=== PATIENT | female | born 1930 | race Caucasian/White ===

== ENCOUNTER → 2017-01-29 | Outpatient (CLI) | payer MEDICARE, BC ==
[2017-01-26 13:44] VITALS: BMI 23.9
[2017-01-29 12:34] VITALS: BP 158/73; PULSE 76; RESP 16
--- NOTE | 2017-01-29 13:28 | P.CONS ---
History of Present Illness - Reason for Consult Consult date: 01/29/17 - Chief Complaint Right shoulder pain - History of Present Illness This is an 86-year-old female with history of right shoulder pain with no precipitating events for the last few years. The patient had right shoulder joint steroid injection previously which lasted about 3 months. Her pain is constant in the right shoulder that gets worse by any movement of the shoulder. He denies any pain in her neck denies any paresthesia in the upper extremities or any weakness. No bowel or bladder dysfunction and no weight loss recently. Also has chronic lower back pain and she's been having injections on the lumbar spine by a different pain clinic including caudal epidurals and medial branch blocks.... She takes Advil for her pain and Klonopin at nighttime for sleep. He states that the pain in her shoulder wakes her up at night. the patient also complains of difficulty walking. She used to follow up with his neurologist until recently. Review of Systems Constitutional: Reports fatigue Ears, nose, mouth and throat: Denies as per HPI, Denies ant. neck pain, Denies bleeding gums, Denies dental pain, Denies dysphagia, Denies epistaxis, Denies headache, Denies hoarseness, Denies mouth pain, Denies nasal congestion, Denies nasal discharge, Denies neck fullness/pressure, Denies neck lump, Denies nose pain, Denies odynophagia, Denies post-nasal drip, Denies sinus pain, Denies sinus pressure, Denies swelling in mouth, Denies swelling in throat, Denies sore throat, Denies vertigo, Denies voice changes Cardiovascular: Reports decreased exercise tolerance Respiratory: Denies as per HPI, Denies congestion, Denies cough, Denies cough with sputum, Denies dyspnea, Denies excessive sputum, Denies hemoptysis, Denies home oxygen, Denies pain, Denies pain on inspiration, Denies pleurisy, Denies respiratory infections, Denies sleep apnea, Denies snoring, Denies wheezing Gastrointestinal: Denies as per HPI, Denies abdominal pain, Denies belching, Denies bloating, Denies BRBPR, Denies change in bowel habits, Denies coffee ground emesis, Denies constipation, Denies diarrhea, Denies dyspepsia, Denies early satiety, Denies excessive gas, Denies heartburn, Denies hematemesis, Denies hematochezia, Denies indigestion, Denies jaundice, Denies lactose intolerance, Denies loss of appetite, Denies melena, Denies nausea, Denies vomiting Musculoskeletal: Reports as per HPI Neurological: Reports as per HPI Past Medical History Past Medical History: Cancer, Hypertension, Musculoskeletal Disorder, Osteoarthritis (OA) History of Any Multi-Drug Resistant Organisms: None Reported Past Surgical History: Appendectomy, Cholecystectomy, Hysterectomy, Joint Replacement, Tonsillectomy Additional Past Surgical History / Comment(s): jewel. knee replacements; colonoscopies Past Anesthesia/Blood Transfusion Reactions: No Reported Reaction Smoking Status: Former smoker Past Alcohol Use History: None Reported Additional Past Alcohol Use History / Comment(s): smoked from teens to age 61' s socially under 1/2 ppd Past Drug Use History: None Reported - Past Family History Mother Family Medical History: No Reported History Medications and Allergies Home Medications Medication Instructions Recorded Confirmed Type Atenolol 25 mg PO BID 01/26/17 01/29/17 History Gabapentin [Neurontin] 100 mg PO BID 01/26/17 01/29/17 History Lisinopril [Prinivil] 20 mg PO DAILY 01/26/17 01/29/17 History Naproxen Sodium [Aleve] 220 mg PO DAILY 01/26/17 01/29/17 History clonazePAM [Clonazepam] 2 mg PO BID 01/26/17 01/29/17 History Allergies Allergy/AdvReac Type Severity Reaction Status Date / Time codeine AdvReac Rash/Hives Verified 01/29/17 12:13 Penicillins AdvReac Rash/Hives Verified 01/29/17 12:13 Physical Exam Vitals: Vital Signs Pulse Resp BP 01/29/17 12:14 76 16 158/73 - Psychiatric Psychiatric: A&O x's 3, appropriate affect, intact judgment & insight Neuro exam of the upper extremities showed normal muscle strength and normal and symmetrical deep tendon reflexes. Mrs. in the upper thoracic paravertebral musculature on the right side and trapezius muscle on the right side. She has normal range of motion of the cervical spine and she has no tenderness in the cervical paravertebral musculature. She has decreased range of motion of the right shoulder to less than 90 for abduction. Has tenderness in the anterior aspect of the right shoulder joint. There is no skin erythema or allodynia to touch around the right shoulder. Neuro exam of the lower extremities showed normal and symmetrical muscle strength and normal knee reflexes bilaterally however she has absent ankle reflex is bilaterally. She has normal cerebellar signs. He has slow short steppage gait. Assessment and Plan Plan: This is an 86-year-old female with right shoulder pain most likely due to osteoarthritis. Chronic lower back pain that has been treated by injections in a different clinic clinic. Difficulty walking. Patient's neurological examination for the upper or lower extremities was grossly normal. I will send the patient to have an MRI on the right shoulder joint. If The shoulder MRI came back negative for any pathology then we will do a cervical spine MRI Give her prescription for [place] 5 mg to be taken as half a pill to 1 pill every 4-6 hours when necessary pain If her prescription for occupational therapy to help her with her gait. She may need steroid injection on the right shoulder joint however we'll wait until the MRI results are back. Thank you Dr. Dumont for the referral
== END ==
LOC: PNWHC3 11:41
PROVIDERS: ATTEND Anesthesiology
DX: M19.011 Primary osteoarthritis, right shoulder (principal); M54.5 Low back pain; G89.29 Other chronic pain; I10 Essential (primary) hypertension; Z79.899 Other long term (current) drug therapy; Z88.5 Allergy status to narcotic agent; Z88.0 Allergy status to penicillin; Z87.891 Personal history of nicotine dependence
CPT/HCPCS: 99211

== ENCOUNTER → 2017-02-22 | Outpatient (CLI) | payer MEDICARE, BC ==
--- NOTE | 2017-02-22 23:27 | MR ---
EXAMINATION TYPE: MR shoulder RT wo con DATE OF EXAM: 02/22/2017 COMPARISON: NONE HISTORY: Rt shoulder pain TECHNIQUE: Multiplanar, multisequence imaging of the right shoulder is performed without contrast. FINDINGS: There is significant flattening of the articular surface of the humeral head. There is an approximate 2 x 1.5 cm mixed signal lesion within the joint space on the superior aspect of the shoulder joint c onsistent with a loose body and synovial chondromatosis. The supraspinatus tendon shows some thinning but no retraction. There is shoulder joint effusion. There is fluid around the biceps tendon. Biceps tendon shows mild thickening at the attachment on the humeral head. The subscapularis tendon is intact. There is mixed fluid signal around the subscapular is tendon. IMPRESSION: Deformity of the humeral head with flattening of the articular surface. 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 Sh oulder joint effusion. There is complex fluid also seen around the subscapularis tendon that is sugge stive of complex synovial cyst formation. Moderate spurring at the AC joint and mild subacromial impi ngement. Significant spurring of the inferior humeral head related to osteoarthritis. No acute fractu re seen.
== END | disposition home or self-care (01) ==
LOC: RADMRIMAIN 12:44
PROVIDERS: ATTEND Anesthesiology
DX: M25.411 Effusion, right shoulder (principal); M77.9 Enthesopathy, unspecified

== ENCOUNTER → 2017-02-26 | Outpatient (CLI) | payer MEDICARE, BC ==
[2017-02-26 12:25] VITALS: BP 114/77; PULSE 85; RESP 15; TEMP 97.5
--- NOTE | 2017-02-26 12:44 | P.PN ---
Subjective Progress Note Date: 02/26/17 This follow-up visit for this 85 years old female who was seen a few weeks ago and [facility] pain clinic, and the to severe right shoulder pain reorder MRI of the right shoulder , and patient here today to discuss the results of the MRI and MRI showed patient had severe deformity of the humeral head with the flattening of the articular surface, and there is large intra- articular body which is consistent with synovial chondromatosis , patient currently on [place] 5/325 one tablet every 4-6 hours, and naproxen to 220 mg daily, she denies any side effects of the medication but she reported that the current regimen is not helping to control her pain and she is not able to state that that because of intensity of the pain, he denies any either or night sweats and there is no change in the bowel movement or urination Objective - Vital Signs Vital signs: Vital Signs Temp 97.5 F L 02/26/17 12:17 Pulse 85 02/26/17 12:17 Resp 15 02/26/17 12:17 BP 114/77 02/26/17 12:17 Pulse Ox 99 02/26/17 12:17 Intake & Output 02/25/17 02/26/17 02/26/17 18:59 06:59 18:59 Weight 54.431 kg Assessment and Plan Assessment: Assessment and plan= severe right shoulder arthralgia secondary to deformity of the right humeral head and flattening of the articular services and intra- articular body , patient will be referred for orthopedic evaluation, and also patient given prescription for [place] 5/325 every 6 hours when necessary dispense 60 and she should continue naproxen to 220 mg daily . Time with Patient: Less than 30
== END | disposition home or self-care (01) ==
LOC: PNWHC3 11:48
PROVIDERS: ATTEND Specialist
DX: M21.921 Unspecified acquired deformity of right upper arm (principal); M25.511 Pain in right shoulder
CPT/HCPCS: 99211

== ENCOUNTER 2017-11-06 21:13 | Emergency (ER) | payer MEDICARE, BC ==
[2017-11-06 22:46] LABS: Appearance,Urine Clear (Clear); Basophils % (A) 0 %; Bilirubin,Urine Negative (Negative); Blood,Urine Negative (Negative); Color,Urine Light Yellow; Eosinophils # (A) 0.2 k/uL (0-0.7); Eosinophils % (A) 2 %; Glucose,Urine (UA) Negative (Negative); HCT 43.1 % (34.0-46.0); HGB 14.2 gm/dL (11.4-16.0); Ketones,Urine Negative (Negative); Leukocyte Esterase,Urine Negative (Negative); Lymphocytes # (A) 1.6 k/uL (1.0-4.8); Lymphocytes % (A) 21 %; MCH 30.1 pg (25.0-35.0); MCV 91.2 fL (80.0-100.0); Mean Platelet Volume 6.4; Monocytes # (A) 0.5 k/uL (0-1.0); Monocytes % (A) 7 %; Neutrophils # (A) 5.2 k/uL (1.3-7.7); Neutrophils % (A) 67 %; Nitrite,Urine Negative (Negative); PH, Urine 5.5 (5.0-8.0); Platelet Count 345 k/uL (150-450); Protein,Urine Negative (Negative); RBC 4.73 m/uL (3.80-5.40); RDW 14.4 % (11.5-15.5); Specific Gravity,Urine 1.007 (1.001-1.035); Urobilinogen,Urine <2.0 mg/dL (<2.0); WBC 7.7 k/uL (3.8-10.6)
--- NOTE | 2017-11-06 22:49 | ED ---
General Adult HPI - General Chief complaint: Psychiatric Symptoms Stated complaint: mental health Time Seen by Provider: 11/06/17 22:14 Source: patient, EMS Mode of arrival: EMS Limitations: altered mental status - History of Present Illness Initial comments: Rahel is an 87-year-old female with no psychiatric history who is brought to the ED today in police custody from an urgent care for evaluation of suicidal statement. Rahel was seen in the urgent care today for evaluation of a rash on her right buttock, which was diagnosed as shingles. During her evaluation at that urgent care the patient stated that her pain is so bad she just wants to end it all, this was taken be a suicidal statement and police were contacted. Patient was transferred here for psychiatric evaluation. Patient is accompanied by her . Patient does have a history of chronic pain, she has been secondary to orthopedic procedures in the past, she has had bilateral knee replacement and a right shoulder replacement. Her right shoulder replacement was last year and she reports she's had persistent pain in the right shoulder since then. She takes Aleve 1-2 times daily with minimal improvement in her pain. She has never seen a pain specialist were done physical therapy for her pain. In addition she noted a very painful and pruritic rash developing on her right buttock yesterday and today it was intensely painful and she sought care at the urgent care. Patient does admit that while at the urgent care she did state that the pain is so bad she doesn't want to live like this. However she denies any specific suicidal thoughts suicidal plan history of depression history of suicide attempts. She lives with her has a good support system she he also confirms that she has no psychiatric history. He does state that sometime she does feel overwhelmed by her pain. He does not feel that she is a danger to herself or others. - Related Data Home Medications Medication Instructions Recorded Confirmed Atenolol 25 mg PO BID 01/26/17 11/06/17 Lisinopril [Prinivil] 20 mg PO DAILY 01/26/17 11/06/17 ALPRAZolam [Xanax] 0.125 mg PO DAILY PRN 11/06/17 11/06/17 Clopidogrel Bisulfate [Plavix] 75 mg PO HS 11/06/17 11/06/17 Allergies Allergy/AdvReac Type Severity Reaction Status Date / Time codeine AdvReac Rash/Hives Verified 11/06/17 21:44 Penicillins AdvReac Rash/Hives Verified 11/06/17 21:44 Review of Systems ROS Statement: Those systems with pertinent positive or pertinent negative responses have been documented in the HPI. ROS Other: All systems not noted in ROS Statement are negative. Past Medical History Past Medical History: Cancer, Hypertension, Musculoskeletal Disorder, Osteoarthritis (OA) History of Any Multi-Drug Resistant Organisms: None Reported Past Surgical History: Appendectomy, Cholecystectomy, Hysterectomy, Joint Replacement, Tonsillectomy Additional Past Surgical History / Comment(s): jewel. knee replacements; colonoscopies Past Anesthesia/Blood Transfusion Reactions: No Reported Reaction Past Psychological History: Anxiety Smoking Status: Former smoker Past Alcohol Use History: None Reported Past Drug Use History: None Reported - Past Family History Mother Family Medical History: No Reported History General Exam - General Exam Comments Initial Comments: GENERAL: Patient is well-developed and well-nourished. Patient is nontoxic and well- hydrated and is in no distress. HENT: Normocephalic, Atraumatic. Neck is soft and supple. No significant lymphadenopathy is noted. Oropharynx is clear. Moist mucous membranes. Neck has full range of motion without eliciting any pain. EYES: The sclera were anicteric and conjunctiva were pink and moist. Extraocular movements were intact and pupils were equal round and reactive to light. Eyelids were unremarkable. PULMONARY: Unlabored respirations. Good breath sounds bilaterally. No audible rales rhonchi or wheezing was noted. CARDIOVASCULAR: There is a regular rate and rhythm without any murmurs gallops or rubs. ABDOMEN: Soft and nontender with normal bowel sounds. SKIN: Rash on right buttock, vesicles on an erythematous base consistent with shingles NEUROLOGIC: Patient is alert and oriented x3. Cranial nerves II through XII are grossly intact. Motor and sensory are also intact. Normal speech, volume and content. Symmetrical smile. MUSCULOSKELETAL: Decreased range of motion of right shoulder LYMPHATICS: No significant lymphadenopathy is noted PSYCHIATRIC: Denies suicidal or homicidal ideation, not delusional, not hallucinating Situational depression regarding chronic pain Limitations: no limitations Limitations: altered mental status Course Vital Signs 11/06/17 21:29 Temperature 98.4 F Pulse Rate 95 Respiratory 15 Rate Blood Pressure 216/91 O2 Sat by Pulse 98 Oximetry Medical Decision Making - Medical Decision Making The patient was seen and evaluated, history was obtained from the patient and her at bedside as well as review of the petition from police Patient admits that her chronic pain causes her to want to "end it all" states she has had this in the past, never made any suicidal attempts or suicidal gestures has no depression or psychiatric history At this time I do not feel the patient is suicidal or homicidal. I do not feel the patient is a threat to herself. Patient does admit that she may be statements out of frustration due to her chronic pain which is exacerbated today by shingles. Patient does not have a spray painter. At this time I will obtain baseline labs because the patient has been prescribed dose, so I will obtain a baseline liver function. In plan to discharge the patient home with referral to her primary care physician as well as a spray painter. This plan was discussed with the patient and her who are agreeable. - Lab Data Result diagrams: 11/06/17 22:32 11/06/17 22:32 Lab Results 11/06/17 11/06/17 11/06/17 Range/Units 22:32 22:32 22:32 WBC 7.7 (3.8-10.6) k/uL RBC 4.73 (3.80-5.40) m/uL Hgb 14.2 (11.4-16.0) gm/dL Hct 43.1 (34.0-46.0) % MCV 91.2 (80.0-100.0) fL MCH 30.1 (25.0-35.0) pg MCHC 33.0 (31.0-37.0) g/dL RDW 14.4 (11.5-15.5) % Plt Count 345 (150-450) k/uL Neutrophils % 67 % Lymphocytes % 21 % Monocytes % 7 % Eosinophils % 2 % Basophils % 0 % Neutrophils # 5.2 (1.3-7.7) k/uL Lymphocytes # 1.6 (1.0-4.8) k/uL Monocytes # 0.5 (0-1.0) k/uL Eosinophils # 0.2 (0-0.7) k/uL Basophils # 0.0 (0-0.2) k/uL Sodium 140 (137-145) mmol/L Potassium 4.2 (3.5-5.1) mmol/L Chloride 108 H (98-107) mmol/L Carbon Dioxide 25 (22-30) mmol/L Anion Gap 7 mmol/L BUN 12 (7-17) mg/dL Creatinine 0.63 (0.52-1.04) mg/dL Est GFR (CKD-EPI)AfAm >90 (>60 ml/min/1.73 sqM) Est GFR (CKD-EPI)NonAf 81 (>60 ml/min/1.73 sqM) Glucose 110 H (74-99) mg/dL Calcium 9.2 (8.4-10.2) mg/dL Total Bilirubin 0.4 (0.2-1.3) mg/dL AST 22 (14-36) U/L ALT 13 (9-52) U/L Alkaline Phosphatase 54 (38-126) U/L Total Protein 6.7 (6.3-8.2) g/dL Albumin 3.8 (3.5-5.0) g/dL Urine Color Light Yellow Urine Appearance Clear (Clear) Urine pH 5.5 (5.0-8.0) Ur Specific [place] 1.007 (1.001-1.035) Urine Protein Negative (Negative) Urine Glucose (UA) Negative (Negative) Urine Ketones Negative (Negative) Urine Blood Negative (Negative) Urine Nitrite Negative (Negative) Urine Bilirubin Negative (Negative) Urine Urobilinogen <2.0 (<2.0) mg/dL Ur Leukocyte Esterase Negative (Negative) Urine Opiates Screen Not Detected (NotDetected) Ur Oxycodone Screen Not Detected (NotDetected) Urine Methadone Screen Not Detected (NotDetected) Ur Propoxyphene Screen Not Detected (NotDetected) Ur Barbiturates Screen Not Detected (NotDetected) U Tricyclic Antidepress Not Detected (NotDetected) Ur Phencyclidine Scrn Not Detected (NotDetected) Ur Amphetamines Screen Not Detected (NotDetected) U Methamphetamines Scrn Not Detected (NotDetected) U Benzodiazepines Scrn Detected H (NotDetected) Urine Cocaine Screen Not Detected (NotDetected) U Marijuana (THC) Screen Not Detected (NotDetected) Disposition Clinical Impression: Shingles, Chronic pain Disposition: HOME SELF-CARE Condition: Good Instructions: Shingles (ED) Is patient prescribed a controlled substance at d/c from ED?: No Referrals: Andrew Castellanos MD [Primary Care Provider] - 1-2 days iMtch Grewal MD [STAFF PHYSICIAN] - 1-2 days Time of Disposition: 22:49
[2017-11-06 22:56] LABS: ALT 13 U/L (9-52); AST 22 U/L (14-36); Albumin 3.8 g/dL (3.5-5.0); Alkaline Phosphatase 54 U/L (38-126); Anion Gap 7 mmol/L; Blood Urea Nitrogen 12 mg/dL (7-17); Calcium 9.2 mg/dL (8.4-10.2); Carbon Dioxide 25 mmol/L (22-30); Chloride 108 mmol/L (98-107); Glucose 110 mg/dL (74-99); Potassium 4.2 mmol/L (3.5-5.1); Sodium 140 mmol/L (137-145); Total Bilirubin 0.4 mg/dL (0.2-1.3); Total Protein 6.7 g/dL (6.3-8.2)
[2017-11-06 22:57] LABS: Amphetamine Screen,Urine Not Detected (NotDetected); Barbiturate Screen,Urine Not Detected (NotDetected); Benzodiazepines Screen,Urine Detected (NotDetected); Cocaine Screen,Urine Not Detected (NotDetected); Methadone Screen, Urine Not Detected (NotDetected); Opiate Screen,Urine Not Detected (NotDetected); Oxycodone Screen, Urine Not Detected (NotDetected); Phencyclidine Screen,Urine Not Detected (NotDetected); Tricyclic Antidepressant,Urine Not Detected (NotDetected); Urn Cannabinoid Scrn Not Detected (NotDetected)
[2017-11-06 23:27] VITALS: RESP 16; TEMP 97.1
[2017-11-06 23:31] VITALS: BP 198/91; PULSE 60
== END 2017-11-06 23:27 | disposition home or self-care (01) ==
LOC: EC 21:13
DX: B02.9 Zoster without complications (principal); G89.29 Other chronic pain; I10 Essential (primary) hypertension; M19.90 Unspecified osteoarthritis, unspecified site; Z85.9 Personal history of malignant neoplasm, unspecified; Z96.653 Presence of artificial knee joint, bilateral; Z96.611 Presence of right artificial shoulder joint; Z87.891 Personal history of nicotine dependence; Z79.02 Long term (current) use of antithrombotics/antiplatelets; Z79.899 Other long term (current) drug therapy; Z88.5 Allergy status to narcotic agent; Z88.0 Allergy status to penicillin
CPT/HCPCS: 36415; 80053; 80306; 81003; 85025; 99284

== ENCOUNTER 2018-01-06 08:19 | Emergency (ER) | payer MEDICARE, BC ==
[2018-01-06] MEDS ORDERED: ALPRAZolam 0.5 MG TAB PO STA (08:48)
[2018-01-06] MEDS ORDERED: SODIUM CHLORIDE 0.9% 500 ML 500 ML IV STA (08:48)
--- NOTE | 2018-01-06 08:54 | ED ---
General Adult HPI - General Chief complaint: Anxiety Stated complaint: pain all over Time Seen by Provider: 01/06/18 08:35 Source: patient, RN notes reviewed, old records reviewed Mode of arrival: wheelchair Limitations: no limitations - History of Present Illness Initial comments: Patient is a 87-year-old female presented to the emergency room with multiple complaints. Patient does admit that she had a fall 1 week ago. She states she fell when she was trying to get around the couch with her walker falling onto the right side. States she did hit her head. There was no loss conscious. She does admit to pain in her back, headache, since the fall. Patient at bedside also states that she suffers from anxiety which has been increased. States that she did not take her Xanax today. Patient also was treated for UTI recently. She did finish a course of antibiotics. states worried that UTI needs to be present. Denies any other complaints or symptoms currently. Patient denies any recent fever, chills, shortness of breath, chest pain, abdominal pain, nausea or vomiting, numbness or tingling, dysuria or hematuria, constipation or diarrhea, or any other complaints. - Related Data Home Medications Medication Instructions Recorded Confirmed Atenolol 25 mg PO BID 01/26/17 11/06/17 Lisinopril [Prinivil] 20 mg PO DAILY 01/26/17 11/06/17 ALPRAZolam [Xanax] 0.125 mg PO DAILY PRN 11/06/17 11/06/17 Clopidogrel Bisulfate [Plavix] 75 mg PO HS 11/06/17 11/06/17 Allergies Allergy/AdvReac Type Severity Reaction Status Date / Time codeine AdvReac Rash/Hives Verified 01/06/18 08:27 Penicillins AdvReac Rash/Hives Verified 01/06/18 08:27 Review of Systems ROS Statement: Those systems with pertinent positive or pertinent negative responses have been documented in the HPI. ROS Other: All systems not noted in ROS Statement are negative. Past Medical History Past Medical History: Cancer, Hypertension, Musculoskeletal Disorder, Osteoarthritis (OA) History of Any Multi-Drug Resistant Organisms: None Reported Past Surgical History: Appendectomy, Cholecystectomy, Hysterectomy, Joint Replacement, Tonsillectomy Additional Past Surgical History / Comment(s): jewel. knee replacements; colonoscopies Past Anesthesia/Blood Transfusion Reactions: No Reported Reaction Past Psychological History: Anxiety Smoking Status: Former smoker Past Alcohol Use History: None Reported Past Drug Use History: None Reported - Past Family History Mother Family Medical History: No Reported History General Exam - General Exam Comments Initial Comments: General: The patient is awake and alert, in no distress, and does not appear acutely ill. Eye: Pupils are equal, round and reactive to light. Extra-ocular movements are intact. No nystagmus. There is normal conjunctiva bilaterally. No signs of icterus. Ears, nose, mouth and throat: There are moist mucous membranes and no oral lesions. Neck: The neck is supple, there is no tenderness or JVD. Cardiovascular: There is a regular rate and rhythm. No murmur, rub or gallop is appreciated. Respiratory: Lungs are clear to auscultation, respirations are non-labored, breath sounds are equal. No wheezes, stridor, rales, or rhonchi. Gastrointestinal: Soft, non-distended, non-tender abdomen without masses or organomegaly noted. There is no rebound or guarding present. No CVA tenderness. Musculoskeletal: Normal ROM. Patient does have minimal tenderness diffusely through thoracic and lumbar spine. No step-off or deformity. Sensation intact. Strength 5/5. Pulses equal bilaterally 2+. Neurological: A&O x 3. CN II-XII intact, There are no obvious motor or sensory deficits. Coordination appears grossly intact. Speech is normal. Skin: Skin is warm and dry and no rashes or lesions are noted. Psychiatric: Cooperative, appropriate mood & affect, normal judgment. Limitations: no limitations Course Vital Signs 01/06/18 08:22 Temperature 98.1 F Pulse Rate 68 Respiratory 16 Rate Blood Pressure 176/89 O2 Sat by Pulse 98 Oximetry EKG Findings - EKG Comments: EKG Findings:: EKG performed at 0922: Shows sinus rhythm at 59 bpm. AL interval 254. QRS 102. QT/QTc 412/407. Medical Decision Making - Medical Decision Making Patient reexamined at this time shows no signs of distress. Patient's x-rays have been reviewed and negative for any acute abnormality. Patient's CT of the head and neck negative. Patient's labs been reviewed. Case discussed in detail with attending physician Dr. Barker. At this time patient is doing well. Will be discharged home to follow-up family doctor in the next 2 days. Patient and at bedside are agreeable with plan. - Lab Data Result diagrams: 01/06/18 09:15 01/06/18 09:15 Lab Results 01/06/18 01/06/18 01/06/18 Range/Units 09:05 09:15 09:15 WBC 6.1 (3.8-10.6) k/uL RBC 4.68 (3.80-5.40) m/uL Hgb 14.6 (11.4-16.0) gm/dL Hct 43.1 (34.0-46.0) % MCV 92.2 (80.0-100.0) fL MCH 31.2 (25.0-35.0) pg MCHC 33.9 (31.0-37.0) g/dL RDW 13.2 (11.5-15.5) % Plt Count 315 (150-450) k/uL Neutrophils % 68 % Lymphocytes % 19 % Monocytes % 8 % Eosinophils % 2 % Basophils % 1 % Neutrophils # 4.1 (1.3-7.7) k/uL Lymphocytes # 1.2 (1.0-4.8) k/uL Monocytes # 0.5 (0-1.0) k/uL Eosinophils # 0.1 (0-0.7) k/uL Basophils # 0.0 (0-0.2) k/uL PT (9.0-12.0) sec INR (<1.2) APTT (22.0-30.0) sec Sodium (137-145) mmol/L Potassium (3.5-5.1) mmol/L Chloride (98-107) mmol/L Carbon Dioxide (22-30) mmol/L Anion Gap mmol/L BUN (7-17) mg/dL Creatinine (0.52-1.04) mg/dL Est GFR (CKD-EPI)AfAm (>60 ml/min/1.73 sqM) Est GFR (CKD-EPI)NonAf (>60 ml/min/1.73 sqM) Glucose (74-99) mg/dL Calcium (8.4-10.2) mg/dL Total Bilirubin (0.2-1.3) mg/dL AST (14-36) U/L ALT (9-52) U/L Alkaline Phosphatase (38-126) U/L Total Creatine Kinase 26 L (30-135) U/L CK-MB (CK-2) 0.4 (0.0-2.4) ng/mL CK-MB (CK-2) Rel Index 1.5 Troponin I <0.012 (0.000-0.034) ng/mL Total Protein (6.3-8.2) g/dL Albumin (3.5-5.0) g/dL Urine Color Light Yellow Urine Appearance Clear (Clear) Urine pH 6.5 (5.0-8.0) Ur Specific [place] 1.006 (1.001-1.035) Urine Protein Negative (Negative) Urine Glucose (UA) Negative (Negative) Urine Ketones Negative (Negative) Urine Blood Negative (Negative) Urine Nitrite Negative (Negative) Urine Bilirubin Negative (Negative) Urine Urobilinogen <2.0 (<2.0) mg/dL Ur Leukocyte Esterase Negative (Negative) 01/06/18 01/06/18 Range/Units 09:15 09:15 WBC (3.8-10.6) k/uL RBC (3.80-5.40) m/uL Hgb (11.4-16.0) gm/dL Hct (34.0-46.0) % MCV (80.0-100.0) fL MCH (25.0-35.0) pg MCHC (31.0-37.0) g/dL RDW (11.5-15.5) % Plt Count (150-450) k/uL Neutrophils % % Lymphocytes % % Monocytes % % Eosinophils % % Basophils % % Neutrophils # (1.3-7.7) k/uL Lymphocytes # (1.0-4.8) k/uL Monocytes # (0-1.0) k/uL Eosinophils # (0-0.7) k/uL Basophils # (0-0.2) k/uL PT 10.5 (9.0-12.0) sec INR 1.1 (<1.2) APTT 24.4 (22.0-30.0) sec Sodium 142 (137-145) mmol/L Potassium 4.5 (3.5-5.1) mmol/L Chloride 106 (98-107) mmol/L Carbon Dioxide 26 (22-30) mmol/L Anion Gap 10 mmol/L BUN 13 (7-17) mg/dL Creatinine 0.67 (0.52-1.04) mg/dL Est GFR (CKD-EPI)AfAm >90 (>60 ml/min/1.73 sqM) Est GFR (CKD-EPI)NonAf 80 (>60 ml/min/1.73 sqM) Glucose 101 H (74-99) mg/dL Calcium 10.0 (8.4-10.2) mg/dL Total Bilirubin 0.7 (0.2-1.3) mg/dL AST 23 (14-36) U/L ALT 21 (9-52) U/L Alkaline Phosphatase 63 (38-126) U/L Total Creatine Kinase (30-135) U/L CK-MB (CK-2) (0.0-2.4) ng/mL CK-MB (CK-2) Rel Index Troponin I (0.000-0.034) ng/mL Total Protein 7.5 (6.3-8.2) g/dL Albumin 4.3 (3.5-5.0) g/dL Urine Color Urine Appearance (Clear) Urine pH (5.0-8.0) Ur Specific [place] (1.001-1.035) Urine Protein (Negative) Urine Glucose (UA) (Negative) Urine Ketones (Negative) Urine Blood (Negative) Urine Nitrite (Negative) Urine Bilirubin (Negative) Urine Urobilinogen (<2.0) mg/dL Ur Leukocyte Esterase (Negative) Disposition Clinical Impression: Back pain, Fall Disposition: HOME SELF-CARE Condition: Good Instructions: Acute Low Back Pain (ED) Additional Instructions: Please follow-up with family doctor in the next 2 days. Please return to emergency room if the symptoms increase or worsen or for any other concerns. Is patient prescribed a controlled substance at d/c from ED?: No Referrals: Adonay Tomas MD [Primary Care Provider] - 1-2 days Time of Disposition: 10:46
[2018-01-06 09:29] LABS: Basophils % (A) 1 %; Eosinophils # (A) 0.1 k/uL (0-0.7); Eosinophils % (A) 2 %; HCT 43.1 % (34.0-46.0); HGB 14.6 gm/dL (11.4-16.0); Lymphocytes # (A) 1.2 k/uL (1.0-4.8); Lymphocytes % (A) 19 %; MCH 31.2 pg (25.0-35.0); MCHC 33.9 g/dL (31.0-37.0); MCV 92.2 fL (80.0-100.0); Mean Platelet Volume 6.4; Monocytes # (A) 0.5 k/uL (0-1.0); Monocytes % (A) 8 %; Neutrophils # (A) 4.1 k/uL (1.3-7.7); Neutrophils % (A) 68 %; Platelet Count 315 k/uL (150-450); RBC 4.68 m/uL (3.80-5.40); RDW 13.2 % (11.5-15.5); WBC 6.1 k/uL (3.8-10.6)
[2018-01-06 09:33] LABS: Appearance,Urine Clear (Clear); Bilirubin,Urine Negative (Negative); Blood,Urine Negative (Negative); Color,Urine Light Yellow; Glucose,Urine (UA) Negative (Negative); Ketones,Urine Negative (Negative); Leukocyte Esterase,Urine Negative (Negative); Nitrite,Urine Negative (Negative); PH, Urine 6.5 (5.0-8.0); Protein,Urine Negative (Negative); Specific Gravity,Urine 1.006 (1.001-1.035); Urobilinogen,Urine <2.0 mg/dL (<2.0)
[2018-01-06 09:37] LABS: INR 1.1 (<1.2); Partial Thromboplastin Time 24.4 sec (22.0-30.0); Prothrombin Time 10.5 sec (9.0-12.0)
[2018-01-06 09:38] LABS: ALT 21 U/L (9-52); AST 23 U/L (14-36); Albumin 4.3 g/dL (3.5-5.0); Alkaline Phosphatase 63 U/L (38-126); Anion Gap 10 mmol/L; Blood Urea Nitrogen 13 mg/dL (7-17); Carbon Dioxide 26 mmol/L (22-30); Chloride 106 mmol/L (98-107); Glucose 101 mg/dL (74-99); Potassium 4.5 mmol/L (3.5-5.1); Sodium 142 mmol/L (137-145); Total Bilirubin 0.7 mg/dL (0.2-1.3); Total Protein 7.5 g/dL (6.3-8.2)
[2018-01-06 09:55] LABS: Creatine Kinase 26 U/L (30-135)
--- NOTE | 2018-01-06 10:01 | CT ---
EXAMINATION TYPE: CT brain abigail healy DATE OF EXAM: 01/06/2018 COMPARISON: 02/09/2012 HISTORY: Fall CT DLP: 1307.[address] of the brain was performed. The ventricles, basal cisterns and sulci overlying the cerebral convexities demonstrate mild enlargem ent. There is no evidence for intracranial hemorrhage or sulcal effacement. There is decreased attenuatio n about the periventricular white matter and deep white matter of both cerebral hemispheres, compatib le with chronic small vessel ischemia. No mass effects are seen. If symptoms persist consider MRI. Osseous calvarium is intact. IMPRESSION: 1. Age related atrophic and chronic small vessel ischemic change without acute intracranial process seen at this time. CT Cervical Spine: Unenhanced CT of the cervical spine was performed with bone and soft tissue window settings submitted . Coronal and sagittal reconstruction is obtained. There is normal alignment and prevertebral soft tissues. No evidence for acute cervical fracture . Scattered degenerative disc disease and spondylosis. Biapical scarring. IMPRESSION: 1. No evidence for acute fracture or subluxation of the cervical spine.
--- NOTE | 2018-01-06 10:07 | XR ---
EXAMINATION TYPE: XR thoracic spine complete DATE OF EXAM: 01/06/2018 CLINICAL HISTORY: pain TECHNIQUE: Frontal, lateral, and swimmer's view of thoracic spine are obtained. COMPARISON: None. FINDINGS: Thoracic spine show satisfactory alignment without evidence of acute fracture or dislocatio n. Vertebral body heights are preserved. Moderate to severe multilevel degenerative disc space narro wing and spondylosis. Visualized ribs are unremarkable. IMPRESSION: No acute fracture or dislocation is seen in the thoracic spine. ICD 10 NO FRACTURE, INITIAL EVALUATION
[2018-01-06 10:08] LABS: Creatine Kinase MB 0.4 ng/mL (0.0-2.4); Troponin I <0.012 ng/mL (0.000-0.034)
--- NOTE | 2018-01-06 10:08 | XR ---
EXAMINATION TYPE: XR lumbar spine 2 or 3V DATE OF EXAM: 01/06/2018 CLINICAL HISTORY: pain TECHNIQUE: Three views of the lumbar spine are submitted. COMPARISON: None. FINDINGS: Moderate to severe multilevel degenerative disc disease and spondylosis. Severe facet joint arthropat hy. Grade 1 retrolisthesis of L2 on L3 measuring 5.4 mm. Grade 1 anterolisthesis L4 and L5 measuring 8.3 mm and gallo-white anterolisthesis L5 on S1 measuring 9.2 mm. No compression fracture seen. IMPRESSION: Advanced degenerative changes with multilevel listhesis seen.
[2018-01-06 10:51] VITALS: BP 133/80; PULSE 61; RESP 18; TEMP 98.4
== END 2018-01-06 11:03 | disposition home or self-care (01) ==
LOC: SUPCPDRO 08:19 → EC 08:19
DX: M54.9 Dorsalgia, unspecified (principal); F41.9 Anxiety disorder, unspecified; R51 Headache; M19.90 Unspecified osteoarthritis, unspecified site; Z87.891 Personal history of nicotine dependence; Z88.0 Allergy status to penicillin; Z88.5 Allergy status to narcotic agent; Z79.02 Long term (current) use of antithrombotics/antiplatelets; Z79.899 Other long term (current) drug therapy; Z96.653 Presence of artificial knee joint, bilateral; Z87.440 Personal history of urinary (tract) infections; Z85.9 Personal history of malignant neoplasm, unspecified; W19.XXXA Unspecified fall, initial encounter
CPT/HCPCS: 36415; 70450; 72072; 72100; 72125; 80053; 81003; 82550; 82553; 84484; 85025; 85610; 85730; 93005; 99284

== ENCOUNTER 2018-01-15 14:16 | Emergency (ER) | payer MEDICARE, BC ==
[2018-01-15 14:30] VITALS: BP 180/97; PULSE 83; RESP 18; TEMP 98.4
--- NOTE | 2018-01-15 14:50 | ED ---
General Adult HPI - General Chief complaint: Altered Mental Status Stated complaint: psych Time Seen by Provider: 01/15/18 14:29 Source: patient, family, EMS, RN notes reviewed, old records reviewed Mode of arrival: EMS Limitations: altered mental status - History of Present Illness Initial comments: This Patient is a 87-year-old female who presents emergency Department via EMS arrival with her . Her called EMS personnel because Patient was having aggressive behavior since 1 AM. Patient reports that she was having aggression and outbursts of behavior for no reason. She states that she had no recent for her to be angry. Patient reports that she was wrestling treated for urinary tract infection. She denies any physical complaints at this time. She was given a Xanax by her and does report some relief in her anxiety and aggression. Patient was in a foul mood and did not want to eat breakfast or have lunch today. She reports that she was not trying to harm herself or her . Doesn't reports that she was diagnosed with Parkinson's disease due to a slow gait after a head injury 3 years ago. Patient has been believes that she does not have Parkinson's and is attempting to find a new primary care physician. - Related Data Home Medications Medication Instructions Recorded Confirmed Atenolol 25 mg PO BID 01/26/17 01/15/18 Lisinopril [Prinivil] 20 mg PO DAILY 01/26/17 01/15/18 ALPRAZolam [Xanax] 0.25 mg PO QID PRN 11/06/17 01/15/18 Ascorbic Acid [Vitamin C] 500 mg PO DAILY 01/15/18 01/15/18 L.acidoph,Paracasei, B.lactis 1 cap PO DAILY 01/15/18 01/15/18 [Probiotic] Vitamin B Complex 1 cap PO DAILY 01/15/18 01/15/18 Previous Rx's Medication Instructions Recorded Nitrofurantoin Monohyd/M-Cryst 100 mg PO Q12HR #14 cap 01/15/18 [Macrobid] Allergies Allergy/AdvReac Type Severity Reaction Status Date / Time codeine AdvReac Rash/Hives Verified 01/15/18 14:53 Penicillins AdvReac Rash/Hives Verified 01/15/18 14:53 Review of Systems ROS Statement: Those systems with pertinent positive or pertinent negative responses have been documented in the HPI. ROS Other: All systems not noted in ROS Statement are negative. Past Medical History Past Medical History: Cancer, Hypertension, Musculoskeletal Disorder, Osteoarthritis (OA) History of Any Multi-Drug Resistant Organisms: None Reported Past Surgical History: Appendectomy, Cholecystectomy, Hysterectomy, Joint Replacement, Tonsillectomy Additional Past Surgical History / Comment(s): jewel. knee replacements; colonoscopies Past Anesthesia/Blood Transfusion Reactions: No Reported Reaction Past Psychological History: Anxiety Smoking Status: Former smoker Past Alcohol Use History: None Reported Past Drug Use History: None Reported - Past Family History Mother Family Medical History: No Reported History General Exam - General Exam Comments Initial Comments: This is a 87-year-old female. She is alert and oriented 3. Limitations: altered mental status General appearance: alert, in no apparent distress Head exam: Present: atraumatic, normocephalic, normal inspection Eye exam: Present: normal appearance, PERRL, EOMI. Absent: scleral icterus, conjunctival injection, periorbital swelling ENT exam: Present: normal exam, mucous membranes moist Neck exam: Present: normal inspection. Absent: tenderness, meningismus, lymphadenopathy Respiratory exam: Present: normal lung sounds bilaterally. Absent: respiratory distress, wheezes, rales, rhonchi, stridor Cardiovascular Exam: Present: regular rate, normal rhythm, normal heart sounds. Absent: systolic murmur, diastolic murmur, rubs, gallop, clicks GI/Abdominal exam: Present: soft, normal bowel sounds. Absent: distended, tenderness, guarding, rebound, rigid Extremities exam: Present: normal inspection, full ROM, normal capillary refill. Absent: tenderness, pedal edema, joint swelling, calf tenderness Back exam: Present: normal inspection, full ROM Neurological exam: Present: alert, oriented X3, CN II-XII intact Psychiatric exam: Present: normal affect, normal mood Skin exam: Present: warm Course Vital Signs 01/15/18 14:28 Temperature 98.4 F Pulse Rate 83 Respiratory 18 Rate Blood Pressure 180/97 O2 Sat by Pulse 96 Oximetry Medical Decision Making - Medical Decision Making Patient is an 87 year old female, presents for agitation. Patient recently treated for UTI, with cipro, finished it today. Patient UA is positive for infection. Urine culture obtained. Patient was medically clear leared for EPS eval. Patient at this time made statueents of being frustrated with her . Patient denied suicidal and homicidal ideations .Patient EPS evaluation completed and given outpatient referrals for respite. Patient will be treated for UTI with macrobid. Discussed close follow up with PCP. Return parameters discussed. - Lab Data Result diagrams: 01/15/18 15:02 01/15/18 15:02 Lab Results 01/15/18 01/15/18 01/15/18 Range/Units 15:02 15:02 15:02 WBC 8.1 (3.8-10.6) k/uL RBC 4.75 (3.80-5.40) m/uL Hgb 14.2 (11.4-16.0) gm/dL Hct 43.7 (34.0-46.0) % MCV 92.1 (80.0-100.0) fL MCH 30.0 (25.0-35.0) pg MCHC 32.5 (31.0-37.0) g/dL RDW 13.2 (11.5-15.5) % Plt Count 357 (150-450) k/uL Neutrophils % 74 % Lymphocytes % 15 % Monocytes % 8 % Eosinophils % 0 % Basophils % 1 % Neutrophils # 6.0 (1.3-7.7) k/uL Lymphocytes # 1.2 (1.0-4.8) k/uL Monocytes # 0.6 (0-1.0) k/uL Eosinophils # 0.0 (0-0.7) k/uL Basophils # 0.0 (0-0.2) k/uL Sodium 142 (137-145) mmol/L Potassium 4.6 (3.5-5.1) mmol/L Chloride 108 H (98-107) mmol/L Carbon Dioxide 26 (22-30) mmol/L Anion Gap 8 mmol/L BUN 20 H (7-17) mg/dL Creatinine 0.67 (0.52-1.04) mg/dL Est GFR (CKD-EPI)AfAm >90 (>60 ml/min/1.73 sqM) Est GFR (CKD-EPI)NonAf 80 (>60 ml/min/1.73 sqM) Glucose 101 H (74-99) mg/dL Calcium 9.9 (8.4-10.2) mg/dL Total Bilirubin 0.5 (0.2-1.3) mg/dL AST 23 (14-36) U/L ALT 27 (9-52) U/L Alkaline Phosphatase 57 (38-126) U/L Total Protein 7.2 (6.3-8.2) g/dL Albumin 4.3 (3.5-5.0) g/dL Urine Color Light Yellow Urine Appearance Cloudy H (Clear) Urine pH 6.0 (5.0-8.0) Ur Specific [place] 1.013 (1.001-1.035) Urine Protein Negative (Negative) Urine Glucose (UA) Negative (Negative) Urine Ketones Negative (Negative) Urine Blood Negative (Negative) Urine Nitrite Negative (Negative) Urine Bilirubin Negative (Negative) Urine Urobilinogen <2.0 (<2.0) mg/dL Ur Leukocyte Esterase Large H (Negative) Urine RBC 6 H (0-5) /hpf Urine WBC 58 H (0-5) /hpf Ur Squamous Epith Cells 18 H (0-4) /hpf Urine Mucus Occasional H (None) /hpf Urine Opiates Screen Not Detected (NotDetected) Ur Oxycodone Screen Not Detected (NotDetected) Urine Methadone Screen Not Detected (NotDetected) Ur Propoxyphene Screen Not Detected (NotDetected) Ur Barbiturates Screen Not Detected (NotDetected) U Tricyclic Antidepress Not Detected (NotDetected) Ur Phencyclidine Scrn Not Detected (NotDetected) Ur Amphetamines Screen Not Detected (NotDetected) U Methamphetamines Scrn Not Detected (NotDetected) U Benzodiazepines Scrn Detected H (NotDetected) Urine Cocaine Screen Not Detected (NotDetected) U Marijuana (THC) Screen Not Detected (NotDetected) Serum Alcohol <10 mg/dL 01/15/18 Range/Units 16:43 WBC (3.8-10.6) k/uL RBC (3.80-5.40) m/uL Hgb (11.4-16.0) gm/dL Hct (34.0-46.0) % MCV (80.0-100.0) fL MCH (25.0-35.0) pg MCHC (31.0-37.0) g/dL RDW (11.5-15.5) % Plt Count (150-450) k/uL Neutrophils % % Lymphocytes % % Monocytes % % Eosinophils % % Basophils % % Neutrophils # (1.3-7.7) k/uL Lymphocytes # (1.0-4.8) k/uL Monocytes # (0-1.0) k/uL Eosinophils # (0-0.7) k/uL Basophils # (0-0.2) k/uL Sodium (137-145) mmol/L Potassium (3.5-5.1) mmol/L Chloride (98-107) mmol/L Carbon Dioxide (22-30) mmol/L Anion Gap mmol/L BUN (7-17) mg/dL Creatinine (0.52-1.04) mg/dL Est GFR (CKD-EPI)AfAm (>60 ml/min/1.73 sqM) Est GFR (CKD-EPI)NonAf (>60 ml/min/1.73 sqM) Glucose (74-99) mg/dL Calcium (8.4-10.2) mg/dL Total Bilirubin (0.2-1.3) mg/dL AST (14-36) U/L ALT (9-52) U/L Alkaline Phosphatase (38-126) U/L Total Protein (6.3-8.2) g/dL Albumin (3.5-5.0) g/dL Urine Color Light Yellow Urine Appearance Clear (Clear) Urine pH 6.5 (5.0-8.0) Ur Specific [place] 1.010 (1.001-1.035) Urine Protein Negative (Negative) Urine Glucose (UA) Negative (Negative) Urine Ketones Negative (Negative) Urine Blood Negative (Negative) Urine Nitrite Negative (Negative) Urine Bilirubin Negative (Negative) Urine Urobilinogen <2.0 (<2.0) mg/dL Ur Leukocyte Esterase Large H (Negative) Urine RBC 3 (0-5) /hpf Urine WBC 27 H (0-5) /hpf Ur Squamous Epith Cells <1 (0-4) /hpf Urine Mucus Rare H (None) /hpf Urine Opiates Screen (NotDetected) Ur Oxycodone Screen (NotDetected) Urine Methadone Screen (NotDetected) Ur Propoxyphene Screen (NotDetected) Ur Barbiturates Screen (NotDetected) U Tricyclic Antidepress (NotDetected) Ur Phencyclidine Scrn (NotDetected) Ur Amphetamines Screen (NotDetected) U Methamphetamines Scrn (NotDetected) U Benzodiazepines Scrn (NotDetected) Urine Cocaine Screen (NotDetected) U Marijuana (THC) Screen (NotDetected) Serum Alcohol mg/dL Disposition Clinical Impression: UTI (urinary tract infection), Mood disorder Disposition: HOME SELF-CARE Condition: Good Instructions: Urinary Tract Infection in Women (DC) Additional Instructions: Follow-up with primary care physician. Return to emergency department if any alarming signs or symptoms occur. Prescriptions: Nitrofurantoin Monohyd/M-Cryst [Macrobid] 100 mg PO Q12HR #14 cap Is patient prescribed a controlled substance at d/c from ED?: No Referrals: Adonay Tomas MD [Primary Care Provider] - 1-2 days Time of Disposition: 19:16
[2018-01-15 15:16] LABS: Basophils % (A) 1 %; Eosinophils % (A) 0 %; HCT 43.7 % (34.0-46.0); HGB 14.2 gm/dL (11.4-16.0); Lymphocytes # (A) 1.2 k/uL (1.0-4.8); Lymphocytes % (A) 15 %; MCHC 32.5 g/dL (31.0-37.0); MCV 92.1 fL (80.0-100.0); Mean Platelet Volume 6.5; Monocytes # (A) 0.6 k/uL (0-1.0); Monocytes % (A) 8 %; Neutrophils % (A) 74 %; Platelet Count 357 k/uL (150-450); RBC 4.75 m/uL (3.80-5.40); RDW 13.2 % (11.5-15.5); WBC 8.1 k/uL (3.8-10.6)
[2018-01-15 15:25] LABS: Appearance,Urine Cloudy (Clear); Bilirubin,Urine Negative (Negative); Blood,Urine Negative (Negative); Color,Urine Light Yellow; Glucose,Urine (UA) Negative (Negative); Ketones,Urine Negative (Negative); Leukocyte Esterase,Urine Large (Negative); Mucus,Urine Occasional /hpf; Nitrite,Urine Negative (Negative); Protein,Urine Negative (Negative); RBC,Urine 6 /hpf (0-5); Specific Gravity,Urine 1.013 (1.001-1.035); Squamous Epithelial Cell,Urine 18 /hpf (0-4); Urobilinogen,Urine <2.0 mg/dL (<2.0)
[2018-01-15 15:26] LABS: ALT 27 U/L (9-52); AST 23 U/L (14-36); Albumin 4.3 g/dL (3.5-5.0); Alcohol <10 mg/dL; Alkaline Phosphatase 57 U/L (38-126); Anion Gap 8 mmol/L; Blood Urea Nitrogen 20 mg/dL (7-17); Calcium 9.9 mg/dL (8.4-10.2); Carbon Dioxide 26 mmol/L (22-30); Chloride 108 mmol/L (98-107); Glucose 101 mg/dL (74-99); Potassium 4.6 mmol/L (3.5-5.1); Sodium 142 mmol/L (137-145); Total Bilirubin 0.5 mg/dL (0.2-1.3); Total Protein 7.2 g/dL (6.3-8.2)
[2018-01-15 15:34] LABS: Amphetamine Screen,Urine Not Detected (NotDetected); Barbiturate Screen,Urine Not Detected (NotDetected); Benzodiazepines Screen,Urine Detected (NotDetected); Cocaine Screen,Urine Not Detected (NotDetected); Methadone Screen, Urine Not Detected (NotDetected); Opiate Screen,Urine Not Detected (NotDetected); Oxycodone Screen, Urine Not Detected (NotDetected); Phencyclidine Screen,Urine Not Detected (NotDetected); Tricyclic Antidepressant,Urine Not Detected (NotDetected); Urn Cannabinoid Scrn Not Detected (NotDetected)
[2018-01-15 17:00] LABS: Appearance,Urine Clear (Clear); Bilirubin,Urine Negative (Negative); Blood,Urine Negative (Negative); Color,Urine Light Yellow; Glucose,Urine (UA) Negative (Negative); Ketones,Urine Negative (Negative); Leukocyte Esterase,Urine Large (Negative); Mucus,Urine Rare /hpf; Nitrite,Urine Negative (Negative); PH, Urine 6.5 (5.0-8.0); Protein,Urine Negative (Negative); RBC,Urine 3 /hpf (0-5); Squamous Epithelial Cell,Urine <1 /hpf (0-4); Urobilinogen,Urine <2.0 mg/dL (<2.0); WBC,Urine 27 /hpf (0-5)
== END 2018-01-15 19:22 | disposition home or self-care (01) ==
LOC: EC 14:16
DX: F39 Unspecified mood [affective] disorder (principal); N39.0 Urinary tract infection, site not specified; I10 Essential (primary) hypertension; F41.9 Anxiety disorder, unspecified; Z79.899 Other long term (current) drug therapy; Z88.0 Allergy status to penicillin; Z88.5 Allergy status to narcotic agent; Z87.891 Personal history of nicotine dependence; Z96.653 Presence of artificial knee joint, bilateral
CPT/HCPCS: 36415; 80053; 85025; 81001; 80306; 87086; 99285; G0480; 80320

== ENCOUNTER → 2018-01-16 | Outpatient (CLI) | payer MEDICARE, BC ==
--- NOTE | 2018-01-16 11:46 | BD ---
EXAMINATION TYPE: Axial Bone Density DATE OF EXAM: 01/16/2018 COMPARISON: NONE CLINICAL HISTORY: Height: 60.5 IN Weight: 130 LBS FRAX RISK QUESTIONS: Secondary Osteoporosis: 3. Menopause before 45: YES AGE 33 Rheumatoid Arthritis: YES RISK FACTORS HISTORY OF: Active: LIMITED Diet low in dairy products/other sources of calcium: YES Postmenopausal woman: AGE 33 Lost more than 2 inches in height since high school: YES 3" Frequent falls: YES Poor Health: YES MEDICATIONS: Additional Medications: CALCIUM, VIT D, BLOOD PRESSURE MEDS EXAM MEASUREMENTS: Bone mineral densitometry was performed using the [employer] System. Bone mineral density as measured about the Lumbar spine is: ----- L1-L4(G/cm2): 1.354 T Score Values are as follows: ----- L2: 1.3 ----- L3: 0.5 ----- L4: 1.1 ----- L1-L4: 1.5 Bone mineral density BASELINE Bone mineral density about the R hip (g/cm2): 0.718 Bone mineral density about the L hip (g/cm2): 0.655 T Score values are as follows: -----R Neck: -2.3 -----L Neck: -2.8 -----R Total: -1.4 -----L Total: -1.9 Bone mineral density BASELINE IMPRESSION: Osteopenia of the bilateral femora. NOTE: T-SCORE=SD OF THE YOUNG ADULT MEAN.
--- NOTE | 2018-01-18 08:54 | MM ---
Reason for exam: screening (asymptomatic). Last mammogram was performed 7 years and 5 months ago. History: Patient is postmenopausal. Family history of breast cancer in paternal aunt and breast cancer in paternal cousin. Physical Findings: A clinical breast exam by your physician is recommended on an annual basis and results should be correlated with mammographic findings. MG Screening Mammo w CAD Bilateral CC and MLO view(s) were taken. Prior study comparison: August 03, 2010, bilateral digital screening mammo w/CAD. May 20, 2009, bilateral diagnostic digital mammog. There are scattered fibroglandular densities. No significant changes when compared with prior studies. ASSESSMENT: Negative, BI-RAD 1 RECOMMENDATION: Routine screening mammogram of both breasts in 1 year.
== END ==
LOC: RADMAMWWP 10:02
PROVIDERS: ATTEND Family Medicine
DX: Z12.31 Encounter for screening mammogram for malignant neoplasm of breast (principal); M85.851 Other specified disorders of bone density and structure, right thigh; M85.852 Other specified disorders of bone density and structure, left thigh; Z78.0 Asymptomatic menopausal state
CPT/HCPCS: 77067; 77080

== ENCOUNTER 2018-01-30 16:12 | Emergency (ER) | payer MEDICARE, BC ==
[2018-01-30] MEDS ORDERED: SODIUM CHLORIDE 0.9% 1,000 ML IV STA (16:38)
[2018-01-30] MEDS ORDERED: MORPHINE SULFATE 4 MG/ML SYRINGE IV STA (16:57)
[2018-01-30 17:15] LABS: Basophils % (A) 1 %; Eosinophils # (A) 0.1 k/uL (0-0.7); Eosinophils % (A) 1 %; HCT 43.7 % (34.0-46.0); HGB 14.4 gm/dL (11.4-16.0); Lymphocytes # (A) 1.5 k/uL (1.0-4.8); Lymphocytes % (A) 18 %; MCH 30.6 pg (25.0-35.0); MCV 92.6 fL (80.0-100.0); Mean Platelet Volume 6.7; Monocytes # (A) 0.7 k/uL (0-1.0); Monocytes % (A) 8 %; Neutrophils # (A) 6.1 k/uL (1.3-7.7); Neutrophils % (A) 71 %; Platelet Count 303 k/uL (150-450); RBC 4.72 m/uL (3.80-5.40); RDW 13.1 % (11.5-15.5); WBC 8.6 k/uL (3.8-10.6)
[2018-01-30 17:21] LABS: Appearance,Urine Clear (Clear); Bilirubin,Urine Negative (Negative); Blood,Urine Negative (Negative); Color,Urine Yellow; Glucose,Urine (UA) Negative (Negative); Ketones,Urine Negative (Negative); Leukocyte Esterase,Urine Small (Negative); Mucus,Urine Rare /hpf; Nitrite,Urine Negative (Negative); PH, Urine 5.5 (5.0-8.0); Protein,Urine Negative (Negative); RBC,Urine 1 /hpf (0-5); Specific Gravity,Urine 1.012 (1.001-1.035); Squamous Epithelial Cell,Urine 2 /hpf (0-4); Urobilinogen,Urine <2.0 mg/dL (<2.0)
[2018-01-30 17:24] LABS: Albumin 4.3 g/dL (3.5-5.0); Calcium 9.7 mg/dL (8.4-10.2); Potassium 4.7 mmol/L (3.5-5.1); Total Bilirubin 0.4 mg/dL (0.2-1.3); Total Protein 7.4 g/dL (6.3-8.2)
--- NOTE | 2018-01-30 17:50 | ED ---
General Adult HPI <Andrae Barker - Last Filed: 01/30/18 20:52> - General Source: patient, RN notes reviewed, old records reviewed Mode of arrival: wheelchair Limitations: no limitations <Chano Fuller - Last Filed: 01/31/18 10:46> - General Chief complaint: Abdominal Pain Stated complaint: Poss appendicitis - History of Present Illness Initial comments: 87 of female patient past history of hypertension, anxiety, UTI presents to ED with 1 week of right lower quadrant pain. Patient states that this pain has gotten worse today. Patient states that the pain as a waxing and waning stabbing pain. Patient denies use of blood thinners. Patient denies any recent illnesses, cough or congestion. Patient denies any nausea vomiting or diarrhea. Patient denies any chest pain or shortness of breath. Patient denies any headache or changes in vision. Systemic: Pt denies fatigue, myalgia, fever/chills, rash. Pt denies weakness, night sweats, weight loss. Neuro: Pt denies headache, visual disturbances, syncope or pre-syncope. HEENT: Pt denies ocular discharge or irritation, otalgia, rhinorrhea, pharyngitis or notable lymphadenopathy. Cardiopulmonary: Pt denies chest pain, SOB, heart palpitations, dyspnea on exertion. Abdominal/GI: Pt denies n/v/d. : Pt denies dysuria, burning w/ urination, frequency/urgency. Denies new onset urinary or bowel incontinence. MSK: Pt denies myalgia, loss of strength or function in extremities. Neuro: Pt denies new onset weakness, paresthesias. (Chano Fuller) - Related Data Home Medications Medication Instructions Recorded Confirmed Atenolol 25 mg PO BID 01/26/17 01/30/18 Lisinopril [Prinivil] 20 mg PO DAILY 01/26/17 01/30/18 ALPRAZolam [Xanax] 0.25 mg PO QID PRN 11/06/17 01/30/18 Ascorbic Acid [Vitamin C] 500 mg PO DAILY 01/15/18 01/30/18 L.acidoph,Paracasei, B.lactis 1 cap PO DAILY 01/15/18 01/30/18 [Probiotic] Vitamin B Complex 1 cap PO DAILY 01/15/18 01/30/18 Allergies Allergy/AdvReac Type Severity Reaction Status Date / Time codeine AdvReac Rash/Hives Verified 01/30/18 17:59 Penicillins AdvReac Rash/Hives Verified 01/30/18 17:59 Review of Systems ROS Other: All systems not noted in ROS Statement are negative. <Andrae Barker - Last Filed: 01/30/18 20:52> ROS Other: All systems not noted in ROS Statement are negative. <Chano Fuller - Last Filed: 01/31/18 10:46> ROS Statement: Those systems with pertinent positive or pertinent negative responses have been documented in the HPI. Past Medical History Past Medical History: Cancer, Hypertension, Musculoskeletal Disorder, Osteoarthritis (OA) History of Any Multi-Drug Resistant Organisms: None Reported Past Surgical History: Appendectomy, Cholecystectomy, Hysterectomy, Joint Replacement, Tonsillectomy Additional Past Surgical History / Comment(s): jewel. knee replacements; colonoscopies Past Anesthesia/Blood Transfusion Reactions: No Reported Reaction Past Psychological History: Anxiety Smoking Status: Former smoker Past Alcohol Use History: None Reported Past Drug Use History: None Reported - Past Family History Mother Family Medical History: No Reported History <Chano Fuller - Last Filed: 01/31/18 10:46> General Exam <MjAndrae - Last Filed: 01/30/18 20:52> Limitations: no limitations <Chano Fuller - Last Filed: 01/31/18 10:46> - General Exam Comments Initial Comments: Constitutional: NAD, AOX3, Pt has pleasant affect. HEENT: NC/AT, trachea midline, neck supple, no lymphadenopathy. Posterior pharynx non erythematous, without exudates. External ears appear normal, without discharge. Mucous membranes moist. Eyes PERRLA, EOM intact. There is no scleral icterus. No pallor noted. Cardiopulmonary: RRR, no murmurs, rubs or gallops, no JVD noted. Lungs CTAB in anterior and posterior mitchell. No peripheral edema. Abdominal exam: Abdomen soft and non-distended. Right lower quadrant tenderness to palpation, abdomen has generalized tenderness. Psoas sign negative. No guarding no rigidity. Bowel sounds active in LLQ. No hepatosplenomegaly. No ecchymosis Neuro: CN II-XII grossly intact. No nuchal rigidity. MSK: No posterior calf tenderness bilaterally, homans sign negative bilaterally. Posterior tibialis and radial pulse +2 bilaterally. Sensation intact in upper and lower extremities. Full active ROM in upper and lower extremities, 5/5 stregnth. (Chano Fuller) Vital Signs 01/30/18 01/30/18 01/30/18 16:26 18:58 20:05 Temperature 98.1 F 97.9 F Pulse Rate 92 89 86 Respiratory 16 17 16 Rate Blood Pressure 154/95 155/96 143/79 O2 Sat by Pulse 98 97 98 Oximetry 01/30/18 21:20 Temperature 97.8 F Pulse Rate 89 Respiratory 16 Rate Blood Pressure 113/77 O2 Sat by Pulse 98 Oximetry Medical Decision Making - Lab Data Result diagrams: 01/30/18 16:56 01/30/18 16:56 <Andrae Barker - Last Filed: 01/30/18 20:52> - Lab Data Result diagrams: 01/30/18 16:56 01/30/18 16:56 - EKG Data -: EKG Interpreted by Nc <Chano Fuller - Last Filed: 01/31/18 10:46> - Medical Decision Making Patient reevaluated and resting comfortably in bed. Abdomen soft and nontender. Case was discussed in detail with Dr. Sharif who was not worried about, bile duct size. Patient and family are updated. (Andrae Barker) 87 of female patient past history of hypertension, anxiety, UTI presents to ED with 1 week of right lower quadrant pain. Patient states that this pain has gotten worse today. Patient states that the pain as a waxing and waning stabbing pain. Patient denies use of blood thinners. Patient denies any other symptoms. Physical exam displayed right lower quadrant tenderness to palpation. Abdomen also had generalized tenderness. Right lower quadrant most tender. Psoas sign negative. No guarding or rigidity. No other pathologic findings identified. Physical exam. Vital signs stable and ED, afebrile. CBC, CMP noncompressive. Troponin negative. EKG not concerning for acute ischemia. UA non impressive. Ct abdomen pelvis did not display acute pathology. Ct abdomen pelvis displayed CBD 1.5 cm. Findings relayed to Dr. Barker who spoke to publication specialist gen surgery. Pt has a hx of cholecystectomy, stated this finding was not concerning. On repeat exam patient abdomen soft, nontender to palpation. Patient currently asymptomatic upon discharge. Patient to continue monitor symptoms and follow up with primary care provider in 1-2 days. Patient to return to ED if any new signs or symptoms develop, worsening abdominal pain, no abdominal pain, chest pain, shortness breath, any other symptoms. Case discussed with Dr. Barker. (Chano Fuller) - Lab Data Lab Results 01/30/18 01/30/18 01/30/18 Range/Units 16:56 16:56 16:56 WBC 8.6 (3.8-10.6) k/uL RBC 4.72 (3.80-5.40) m/uL Hgb 14.4 (11.4-16.0) gm/dL Hct 43.7 (34.0-46.0) % MCV 92.6 (80.0-100.0) fL MCH 30.6 (25.0-35.0) pg MCHC 33.0 (31.0-37.0) g/dL RDW 13.1 (11.5-15.5) % Plt Count 303 (150-450) k/uL Neutrophils % 71 % Lymphocytes % 18 % Monocytes % 8 % Eosinophils % 1 % Basophils % 1 % Neutrophils # 6.1 (1.3-7.7) k/uL Lymphocytes # 1.5 (1.0-4.8) k/uL Monocytes # 0.7 (0-1.0) k/uL Eosinophils # 0.1 (0-0.7) k/uL Basophils # 0.0 (0-0.2) k/uL Sodium 140 (137-145) mmol/L Potassium 4.7 (3.5-5.1) mmol/L Chloride 106 (98-107) mmol/L Carbon Dioxide 26 (22-30) mmol/L Anion Gap 8 mmol/L BUN 18 H (7-17) mg/dL Creatinine 0.71 (0.52-1.04) mg/dL Est GFR (CKD-EPI)AfAm 90 (>60 ml/min/1.73 sqM) Est GFR (CKD-EPI)NonAf 78 (>60 ml/min/1.73 sqM) Glucose 109 H (74-99) mg/dL Plasma Lactic Acid Tung 1.3 (0.7-2.0) mmol/L Calcium 9.7 (8.4-10.2) mg/dL Total Bilirubin 0.4 (0.2-1.3) mg/dL AST 20 (14-36) U/L ALT 25 (9-52) U/L Alkaline Phosphatase 55 (38-126) U/L Troponin I (0.000-0.034) ng/mL Total Protein 7.4 (6.3-8.2) g/dL Albumin 4.3 (3.5-5.0) g/dL Lipase 253 (23-300) U/L Urine Color Urine Appearance (Clear) Urine pH (5.0-8.0) Ur Specific [place] (1.001-1.035) Urine Protein (Negative) Urine Glucose (UA) (Negative) Urine Ketones (Negative) Urine Blood (Negative) Urine Nitrite (Negative) Urine Bilirubin (Negative) Urine Urobilinogen (<2.0) mg/dL Ur Leukocyte Esterase (Negative) Urine RBC (0-5) /hpf Urine WBC (0-5) /hpf Ur Squamous Epith Cells (0-4) /hpf Urine Mucus (None) /hpf 01/30/18 01/30/18 Range/Units 16:56 16:56 WBC (3.8-10.6) k/uL RBC (3.80-5.40) m/uL Hgb (11.4-16.0) gm/dL Hct (34.0-46.0) % MCV (80.0-100.0) fL MCH (25.0-35.0) pg MCHC (31.0-37.0) g/dL RDW (11.5-15.5) % Plt Count (150-450) k/uL Neutrophils % % Lymphocytes % % Monocytes % % Eosinophils % % Basophils % % Neutrophils # (1.3-7.7) k/uL Lymphocytes # (1.0-4.8) k/uL Monocytes # (0-1.0) k/uL Eosinophils # (0-0.7) k/uL Basophils # (0-0.2) k/uL Sodium (137-145) mmol/L Potassium (3.5-5.1) mmol/L Chloride (98-107) mmol/L Carbon Dioxide (22-30) mmol/L Anion Gap mmol/L BUN (7-17) mg/dL Creatinine (0.52-1.04) mg/dL Est GFR (CKD-EPI)AfAm (>60 ml/min/1.73 sqM) Est GFR (CKD-EPI)NonAf (>60 ml/min/1.73 sqM) Glucose (74-99) mg/dL Plasma Lactic Acid Tung (0.7-2.0) mmol/L Calcium (8.4-10.2) mg/dL Total Bilirubin (0.2-1.3) mg/dL AST (14-36) U/L ALT (9-52) U/L Alkaline Phosphatase (38-126) U/L Troponin I <0.012 (0.000-0.034) ng/mL Total Protein (6.3-8.2) g/dL Albumin (3.5-5.0) g/dL Lipase (23-300) U/L Urine Color Yellow Urine Appearance Clear (Clear) Urine pH 5.5 (5.0-8.0) Ur Specific [place] 1.012 (1.001-1.035) Urine Protein Negative (Negative) Urine Glucose (UA) Negative (Negative) Urine Ketones Negative (Negative) Urine Blood Negative (Negative) Urine Nitrite Negative (Negative) Urine Bilirubin Negative (Negative) Urine Urobilinogen <2.0 (<2.0) mg/dL Ur Leukocyte Esterase Small H (Negative) Urine RBC 1 (0-5) /hpf Urine WBC 8 H (0-5) /hpf Ur Squamous Epith Cells 2 (0-4) /hpf Urine Mucus Rare H (None) /hpf - EKG Data EKG Comments: Ventricular 89,. Full to 38, QRS 102, QTC QTC 356 at 433. Sensory first grade AV block. Evidence for acute ischemia. (Chano Fuller) Disposition <Andrae Barker - Last Filed: 01/30/18 20:52> Is patient prescribed a controlled substance at d/c from ED?: No Time of Disposition: 21:22 <Chano Fuller - Last Filed: 01/31/18 10:46> Clinical Impression: Abdominal pain Disposition: HOME SELF-CARE Condition: Good Instructions: Abdominal Pain (ED) Additional Instructions: Patient to adhere to previously discussed treatment plan and will take medication(s) as directed. Patient to follow up with PCP in 1-2 days. Patient to return to ED if symptoms do not improve. Referrals: Adonay Tomas MD [Primary Care Provider] - 1-2 days
[2018-01-30] MEDS ORDERED: LORazepam 1 MG TAB PO STA (18:49)
[2018-01-30 20:08] VITALS: RESP 16
--- NOTE | 2018-01-30 20:19 | CT ---
EXAMINATION TYPE: CT abdomen pelvis w con DATE OF EXAM: 01/30/2018 COMPARISON: December 14, 2010 HISTORY: Right lower quadrant pain with fever. CT DLP: 666.4 mGycm Automated exposure control for dose reduction was used. TECHNIQUE: Helical acquisition of images was performed from the lung bases through the pelvis. CONTRAST: Performed without Oral Contrast and with IV Contrast, patient injected with 100 mL of Isovue 300. FINDINGS: Lung bases are clear. There is no pleural effusion. There is no pericardial effusion. There are numer ous calcified splenic granulomata. There is no pancreatic mass. Liver shows no focal defect. There ar e clips from cholecystectomy. Common bile duct is large and measures 1.5 cm. Intrahepatic bile ducts are not dilated. Stomach appears normal. There is no adrenal mass. There are renal multiple parapelvic cysts on the left side. There is no hyd ronephrosis. Ureters are not dilated. There is no retroperitoneal adenopathy. Abdominal aorta is athe romatous. Bladder distends smoothly. There is no inguinal hernia. There is no free fluid in the pelvi s. There are numerous diverticula in the sigmoid colon. There is no sign of diverticulitis. There is no mesenteric edema or adenopathy. There is small umbilical hernia that contains fat. Appendix is not se en. No sign of appendicitis. There is a degenerative first-degree L4-L5 spondylolisthesis. There is n o lumbar compression fracture. I see no focal bone destruction. IMPRESSION: EXTENSIVE SIGMOID DIVERTICULOSIS. NO SIGN OF DIVERTICULITIS. MILD DILATION OF NO SIGNIFICANT DILATION OF THE INTRAHEPATIC BILE DUCTS. THE COMMON BILE DUCT IS INCREASED COMPARED TO OLD EXAM.
[2018-01-30 21:23] VITALS: BP 113/77; PULSE 89; TEMP 97.8
== END 2018-01-30 21:28 | disposition home or self-care (01) ==
LOC: EC 16:12
DX: R10.31 Right lower quadrant pain (principal); I10 Essential (primary) hypertension; M19.90 Unspecified osteoarthritis, unspecified site; Z85.9 Personal history of malignant neoplasm, unspecified; Z87.891 Personal history of nicotine dependence; Z79.899 Other long term (current) drug therapy; Z88.0 Allergy status to penicillin; Z88.1 Allergy status to other antibiotic agents; Z90.49 Acquired absence of other specified parts of digestive tract; Z96.653 Presence of artificial knee joint, bilateral
CPT/HCPCS: 36415; 93005; 80053; 83605; 83690; 84484; 85025; 81001; 87086; 74177; 99285; 96374; 96361 ×4; J2270; Q9967

== ENCOUNTER 2018-01-31 17:42 | Inpatient (IN) | payer MEDICARE, BC ==
[2018-01-31] MEDS ORDERED: SODIUM CHLORIDE 0.9% 1,000 ML IV STA ×2 (18:02)
[2018-01-31] MEDS ORDERED: PANTOPRAZOLE 40 MG/10 ML VIAL IVP STA (18:30)
[2018-01-31] MEDS ORDERED: MORPHINE SULFATE 2 MG/ML SYRINGE IVP STA (18:30)
[2018-01-31] MEDS ORDERED: ONDANSETRON 4 MG/2 ML VIAL IVP STA (18:30)
--- NOTE | 2018-01-31 18:32 | ED ---
Abdominal Pain HPI <Andrae Barker - Last Filed: 01/31/18 20:42> - General Source: patient, RN notes reviewed, old records reviewed Mode of arrival: ambulatory Limitations: no limitations <Odilia Bruce - Last Filed: 01/31/18 21:16> - General Chief Complaint: Abdominal Pain Stated Complaint: abd pain Time Seen by Provider: 01/31/18 18:01 - History of Present Illness Initial Comments: Patient is a 87-year-old female, presents today for reevaluation. Patient presents with chief complaint of right-sided Tylenol pain. She's been having symptoms for the past 3 days. She is either yesterday with extensive workup including computed tomography scan. Everything was found to be negative. She states that shortly the past week she's been having dark "charcoal-like stools" . Patient states that she has had no vomiting. She does suffer from acid reflux. She reports that the pain is mainly located in the right side. She denies any associated chest pain or shortness of breath or back pain. (Odilia Bruce) - Related Data Home Medications Medication Instructions Recorded Confirmed Atenolol 25 mg PO BID 01/26/17 01/31/18 Lisinopril [Prinivil] 20 mg PO DAILY 01/26/17 01/31/18 ALPRAZolam [Xanax] 0.25 mg PO QID PRN 11/06/17 01/31/18 Ascorbic Acid [Vitamin C] 500 mg PO DAILY 01/15/18 01/31/18 L.acidoph,Paracasei, B.lactis 1 cap PO DAILY 01/15/18 01/31/18 [Probiotic] Vitamin B Complex 1 cap PO DAILY 01/15/18 01/31/18 Allergies Allergy/AdvReac Type Severity Reaction Status Date / Time codeine AdvReac Rash/Hives Verified 01/31/18 19:15 Penicillins AdvReac Rash/Hives Verified 01/31/18 19:15 Review of Systems ROS Other: All systems not noted in ROS Statement are negative. <Andrae Barker - Last Filed: 01/31/18 20:42> ROS Other: All systems not noted in ROS Statement are negative. <Odilia Bruce - Last Filed: 01/31/18 21:16> ROS Statement: Those systems with pertinent positive or pertinent negative responses have been documented in the HPI. Past Medical History Past Medical History: Cancer, Hypertension, Musculoskeletal Disorder, Osteoarthritis (OA) History of Any Multi-Drug Resistant Organisms: None Reported Past Surgical History: Appendectomy, Cholecystectomy, Hysterectomy, Joint Replacement, Tonsillectomy Additional Past Surgical History / Comment(s): jewel. knee replacements; colonoscopies Past Anesthesia/Blood Transfusion Reactions: No Reported Reaction Past Psychological History: Anxiety Smoking Status: Former smoker Past Alcohol Use History: None Reported Past Drug Use History: None Reported - Past Family History Mother Family Medical History: No Reported History <Odilia Bruce - Last Filed: 01/31/18 21:16> General Exam <Andrae Barker - Last Filed: 01/31/18 20:42> Limitations: no limitations General appearance: alert, in no apparent distress Head exam: Present: atraumatic, normocephalic, normal inspection Eye exam: Present: normal appearance, PERRL, EOMI. Absent: scleral icterus, conjunctival injection, periorbital swelling ENT exam: Present: normal exam, mucous membranes moist Neck exam: Present: normal inspection. Absent: tenderness, meningismus, lymphadenopathy Respiratory exam: Present: normal lung sounds bilaterally. Absent: respiratory distress, wheezes, rales, rhonchi, stridor Cardiovascular Exam: Present: regular rate, normal rhythm, normal heart sounds. Absent: systolic murmur, diastolic murmur, rubs, gallop, clicks GI/Abdominal exam: Present: soft, tenderness (Right lower quadrant tenderness.) , normal bowel sounds. Absent: distended, guarding, rebound, rigid Extremities exam: Present: normal inspection, full ROM, normal capillary refill. Absent: tenderness, pedal edema, joint swelling, calf tenderness Back exam: Present: normal inspection Neurological exam: Present: alert, oriented X3, CN II-XII intact Psychiatric exam: Present: normal affect, normal mood Skin exam: Present: warm, dry, intact, normal color. Absent: rash <Odilia Bruce - Last Filed: 01/31/18 21:16> - General Exam Comments Initial Comments: 87-year-old female. Alert and oriented. No significant distress. Patient appears somewhat anxious. gave her a Xanax due to panic attack prior to arrival. (Odilia Bruce) Course <Andrae Barker - Last Filed: 01/31/18 20:42> <Odilia Bruce - Last Filed: 01/31/18 21:16> Vital Signs 01/31/18 01/31/18 17:47 20:58 Temperature 98.4 F Pulse Rate 87 79 Respiratory 18 18 Rate Blood Pressure 151/86 156/78 O2 Sat by Pulse 97 99 Oximetry - Reevaluation(s) Reevaluation #1: 01/31/18 20:42 Patient reevaluated by myself, Dr. Barker. Patient resting comfortably in bed. Abdomen is soft with mild to moderate tenderness, more so on the right side. Results reviewed. Previous CT reviewed. Patient and family updated on results and plan. Case was discussed with Dr. Christopher, who will admit covering for Dr. Tomas. Surgery will be placed on consult. (Andrae Barker) Medical Decision Making - Lab Data Result diagrams: 01/31/18 18:23 12 18:23 <Andrae Barker - Last Filed: 01/31/18 20:42> - Lab Data Result diagrams: 01/31/18 18:23 01/31/18 18:23 - Radiology Data Radiology results: report reviewed <Odilia Bruce - Last Filed: 01/31/18 21:16> - Medical Decision Making 87-year-old female with a history of anxiety presents emergency room stay for reevaluation for right-sided abdominal pain. She reports been progressive. She also states that she's been having some dark charcoal-like stool. Her fecal occult was negative. Lab work was relatively unremarkable. She did have a CT scan yesterday which showed diverticulosis but no sign of diverticulitis. She is afebrile here. Urinalysis did show 11 white blood cells and small leukocyte esterase. Urine culture will be obtained. She was recently treated for UTI. Patient complains of persistent pain. Discussed the case with Dr. Barker. I do not want to proceed with a computed tomography scan again she had one yesterday. Dr. Barker discussing his Dr. Christopher who agrees to admit the Patient for observation for evaluation of abdominal pain and to be evaluated by on-call surgeon. Consults were placed by Dr. Barker. Patient will be admitted at this time. (Odilia Bruce) - Lab Data Lab Results 01/31/18 01/31/18 01/31/18 Range/Units 18:23 18:23 18:23 WBC 8.2 (3.8-10.6) k/uL RBC 4.28 (3.80-5.40) m/uL Hgb 13.2 (11.4-16.0) gm/dL Hct 39.4 (34.0-46.0) % MCV 92.0 (80.0-100.0) fL MCH 30.7 (25.0-35.0) pg MCHC 33.4 (31.0-37.0) g/dL RDW 13.2 (11.5-15.5) % Plt Count 290 (150-450) k/uL Neutrophils % 66 % Lymphocytes % 19 % Monocytes % 9 % Eosinophils % 4 % Basophils % 0 % Neutrophils # 5.4 (1.3-7.7) k/uL Lymphocytes # 1.6 (1.0-4.8) k/uL Monocytes # 0.7 (0-1.0) k/uL Eosinophils # 0.3 (0-0.7) k/uL Basophils # 0.0 (0-0.2) k/uL PT 10.0 (9.0-12.0) sec INR 0.9 (<1.2) APTT 23.9 (22.0-30.0) sec Sodium 143 (137-145) mmol/L Potassium 4.3 (3.5-5.1) mmol/L Chloride 111 H (98-107) mmol/L Carbon Dioxide 24 (22-30) mmol/L Anion Gap 8 mmol/L BUN 21 H (7-17) mg/dL Creatinine 0.64 (0.52-1.04) mg/dL Est GFR (CKD-EPI)AfAm >90 (>60 ml/min/1.73 sqM) Est GFR (CKD-EPI)NonAf 81 (>60 ml/min/1.73 sqM) Glucose 109 H (74-99) mg/dL Calcium 9.3 (8.4-10.2) mg/dL Total Bilirubin 0.4 (0.2-1.3) mg/dL AST 22 (14-36) U/L ALT 23 (9-52) U/L Alkaline Phosphatase 50 (38-126) U/L Total Protein 6.5 (6.3-8.2) g/dL Albumin 3.7 (3.5-5.0) g/dL Amylase 80 (30-110) U/L Lipase 176 (23-300) U/L Urine Color Urine Appearance (Clear) Urine pH (5.0-8.0) Ur Specific [place] (1.001-1.035) Urine Protein (Negative) Urine Glucose (UA) (Negative) Urine Ketones (Negative) Urine Blood (Negative) Urine Nitrite (Negative) Urine Bilirubin (Negative) Urine Urobilinogen (<2.0) mg/dL Ur Leukocyte Esterase (Negative) Urine RBC (0-5) /hpf Urine WBC (0-5) /hpf Ur Squamous Epith Cells (0-4) /hpf Hyaline Casts (0-2) /lpf Urine Mucus (None) /hpf Stool Occult Blood (Negative) 01/31/18 01/31/18 Range/Units 18:23 20:35 WBC (3.8-10.6) k/uL RBC (3.80-5.40) m/uL Hgb (11.4-16.0) gm/dL Hct (34.0-46.0) % MCV (80.0-100.0) fL MCH (25.0-35.0) pg MCHC (31.0-37.0) g/dL RDW (11.5-15.5) % Plt Count (150-450) k/uL Neutrophils % % Lymphocytes % % Monocytes % % Eosinophils % % Basophils % % Neutrophils # (1.3-7.7) k/uL Lymphocytes # (1.0-4.8) k/uL Monocytes # (0-1.0) k/uL Eosinophils # (0-0.7) k/uL Basophils # (0-0.2) k/uL PT (9.0-12.0) sec INR (<1.2) APTT (22.0-30.0) sec Sodium (137-145) mmol/L Potassium (3.5-5.1) mmol/L Chloride (98-107) mmol/L Carbon Dioxide (22-30) mmol/L Anion Gap mmol/L BUN (7-17) mg/dL Creatinine (0.52-1.04) mg/dL Est GFR (CKD-EPI)AfAm (>60 ml/min/1.73 sqM) Est GFR (CKD-EPI)NonAf (>60 ml/min/1.73 sqM) Glucose (74-99) mg/dL Calcium (8.4-10.2) mg/dL Total Bilirubin (0.2-1.3) mg/dL AST (14-36) U/L ALT (9-52) U/L Alkaline Phosphatase (38-126) U/L Total Protein (6.3-8.2) g/dL Albumin (3.5-5.0) g/dL Amylase (30-110) U/L Lipase (23-300) U/L Urine Color Light Yellow Urine Appearance Clear (Clear) Urine pH 6.0 (5.0-8.0) Ur Specific [place] 1.014 (1.001-1.035) Urine Protein Negative (Negative) Urine Glucose (UA) Negative (Negative) Urine Ketones Negative (Negative) Urine Blood Negative (Negative) Urine Nitrite Negative (Negative) Urine Bilirubin Negative (Negative) Urine Urobilinogen <2.0 (<2.0) mg/dL Ur Leukocyte Esterase Small H (Negative) Urine RBC <1 (0-5) /hpf Urine WBC 11 H (0-5) /hpf Ur Squamous Epith Cells 1 (0-4) /hpf Hyaline Casts 3 H (0-2) /lpf Urine Mucus Occasional H (None) /hpf Stool Occult Blood Negative (Negative) - Radiology Data KUB is negative for any acute process. (Odilia Bruce) Disposition <Andrae Barker - Last Filed: 01/31/18 20:42> Is patient prescribed a controlled substance at d/c from ED?: No Time of Disposition: 21:16 <Odilia Bruce - Last Filed: 01/31/18 21:16> Clinical Impression: Abdominal pain Disposition: ADMITTED IP TO THIS HOSP Condition: Stable Referrals: Adonay Tomas MD [Primary Care Provider] - 1-2 days
[2018-01-31 18:37] LABS: Basophils % (A) 0 %; Eosinophils # (A) 0.3 k/uL (0-0.7); Eosinophils % (A) 4 %; HCT 39.4 % (34.0-46.0); HGB 13.2 gm/dL (11.4-16.0); Lymphocytes # (A) 1.6 k/uL (1.0-4.8); Lymphocytes % (A) 19 %; MCH 30.7 pg (25.0-35.0); MCHC 33.4 g/dL (31.0-37.0); Mean Platelet Volume 6.8; Monocytes # (A) 0.7 k/uL (0-1.0); Monocytes % (A) 9 %; Neutrophils # (A) 5.4 k/uL (1.3-7.7); Neutrophils % (A) 66 %; Platelet Count 290 k/uL (150-450); RBC 4.28 m/uL (3.80-5.40); RDW 13.2 % (11.5-15.5); WBC 8.2 k/uL (3.8-10.6)
[2018-01-31 18:45] LABS: ALT 23 U/L (9-52); AST 22 U/L (14-36); Albumin 3.7 g/dL (3.5-5.0); Alkaline Phosphatase 50 U/L (38-126); Amylase 80 U/L (30-110); Anion Gap 8 mmol/L; Blood Urea Nitrogen 21 mg/dL (7-17); Calcium 9.3 mg/dL (8.4-10.2); Carbon Dioxide 24 mmol/L (22-30); Chloride 111 mmol/L (98-107); Glucose 109 mg/dL (74-99); Lipase 176 U/L (23-300); Potassium 4.3 mmol/L (3.5-5.1); Sodium 143 mmol/L (137-145); Total Bilirubin 0.4 mg/dL (0.2-1.3); Total Protein 6.5 g/dL (6.3-8.2)
[2018-01-31 19:08] LABS: INR 0.9 (<1.2); Partial Thromboplastin Time 23.9 sec (22.0-30.0)
--- NOTE | 2018-01-31 20:17 | XR ---
EXAMINATION TYPE: XR KUB DATE OF EXAM: 01/31/2018 COMPARISON: NONE HISTORY: Abdominal pain TECHNIQUE: 2 views FINDINGS: 2 supine views were obtained and show no sign of intestinal obstruction or pneumoperitoneum . Fecal pattern is normal. There are numerous calcified splenic granulomata. There are clips from cho lecystectomy. Lung bases appear clear. IMPRESSION: Nonacute abdomen.
[2018-01-31] MEDS ORDERED: SODIUM CHLORIDE 0.9% 1,000 ML IV ONE (20:28)
[2018-01-31 21:08] LABS: Appearance,Urine Clear (Clear); Bilirubin,Urine Negative (Negative); Blood,Urine Negative (Negative); Color,Urine Light Yellow; Glucose,Urine (UA) Negative (Negative); Hyaline Casts,Urine 3 /lpf (0-2); Ketones,Urine Negative (Negative); Leukocyte Esterase,Urine Small (Negative); Mucus,Urine Occasional /hpf; Nitrite,Urine Negative (Negative); Protein,Urine Negative (Negative); RBC,Urine <1 /hpf (0-5); Specific Gravity,Urine 1.014 (1.001-1.035); Squamous Epithelial Cell,Urine 1 /hpf (0-4); Urobilinogen,Urine <2.0 mg/dL (<2.0); WBC,Urine 11 /hpf (0-5)
[2018-01-31] MEDS ORDERED: ONDANSETRON 4 MG/2 ML VIAL IVP PRN (21:17)
[2018-01-31] MEDS ORDERED: NALOXONE 0.4 MG/ML 1 ML VIAL IV PRN (21:17)
[2018-01-31] MEDS ORDERED: IBUPROFEN 400 MG TAB PO PRN (21:17)
[2018-01-31] MEDS ORDERED: KETOROLAC 30 MG/ML 1 ML VIAL IVP PRN (21:17)
[2018-01-31] MEDS ORDERED: ACETAMINOPHEN TAB 325 MG TAB PO PRN (21:17)
[2018-01-31] MEDS: LORazepam 2 MG/ML INJ IV PRN (21:52)
[2018-01-31 22:10] VITALS: BMI 20.5
[2018-02-01] MEDS: LORazepam 2 MG/ML INJ IV PRN ×2 (01:28→16:58)
--- NOTE | 2018-02-01 10:26 | P.HPIM ---
History of Present Illness H&P Date: 02/01/18 Chief Complaint: Abdominal pain This is a 87-year-old female who was admitted to observation for abdominal pain. Patient the time examination was alert and oriented she had her at the bedside who assisted me with a history and physical. Patient says that she's been having abdominal pain for the past few weeks and a more severe and constant pain since the past 3 days. She said that she's been nauseous but no vomiting, she's been having charcoal-like stools. She does not complain of any diarrhea but says that she is constipated. She otherwise does not complain of any fever or chills, no chest pain or racing heart, no cough no shortness of breath, no lightheadedness no dizziness, no tingling numbness of any of the extremities, no itch no rash. Patient apparently was in the ER 2 days ago and she had a computed tomography scan done but did not show any acute abnormality. During this visit her vitals were stable. Lab work was done which showed WBC 8.2 hemoglobin 13.2 platelets 290 K sodium 143 potassium 4.3 B1 21 creatinine 0.64 GFR more than 90 INR was 0.9. UA showed 3 hyaline casts 11 WBCs. She had abdominal x-ray done which showed no acute abnormalities. Patient was admitted to observation with surgery consult. Review of Systems REVIEW OF SYSTEMS: ENT: No diminished vision or hearing. CARDIOVASCULAR: Mentioned earlier. RESPIRATORY: As mentioned earlier. GI: No nauscea, vomiting or diarrhea. She is having abdominal pain in the left low quadrant belly is soft, bowel sounds present : No dysuria or retention. NERVOUS SYSTEM: No numbness or weakness. ALLERGY/IMMUNOLOGY: No asthma or hay fever. HEMATOLOGY/ONCOLOGY: No history of anemia. ENDOCRINE: No history of diabetes or hypothyroidism. CONSTITUTIONAL: As mentioned earlier. DERMATOLOGY: Negative. PSYCHIATRY: Mentioned earlier. RHEUMATOLOGY: Negative. Past Medical History Past Medical History: Cancer, Hypertension, Musculoskeletal Disorder, Osteoarthritis (OA) Additional Past Medical History / Comment(s): skin cancer, shingles 10/2017, chronic constipation History of Any Multi-Drug Resistant Organisms: None Reported Past Surgical History: Appendectomy, Cholecystectomy, Hysterectomy, Joint Replacement, Tonsillectomy Additional Past Surgical History / Comment(s): jewel. knee replacements; colonoscopies, right shoulder replacement Past Anesthesia/Blood Transfusion Reactions: No Reported Reaction Past Psychological History: Anxiety Additional Psychological History / Comment(s): severe anxiety Smoking Status: Former smoker Past Alcohol Use History: None Reported Additional Past Alcohol Use History / Comment(s): under 1/2 ppd for 10yrs Past Drug Use History: None Reported - Past Family History Mother Family Medical History: No Reported History Medications and Allergies Home Medications Medication Instructions Recorded Confirmed Type Atenolol 25 mg PO BID 01/26/17 01/31/18 History Lisinopril [Prinivil] 20 mg PO DAILY 01/26/17 01/31/18 History ALPRAZolam [Xanax] 0.25 mg PO QID PRN 11/06/17 01/31/18 History Ascorbic Acid [Vitamin C] 500 mg PO DAILY 01/15/18 01/31/18 History L.acidoph,Paracasei, B.lactis 1 cap PO DAILY 01/15/18 01/31/18 History [Probiotic] Vitamin B Complex 1 cap PO DAILY 01/15/18 01/31/18 History Allergies Allergy/AdvReac Type Severity Reaction Status Date / Time codeine AdvReac Rash/Hives Verified 01/31/18 19:15 Penicillins AdvReac Rash/Hives Verified 01/31/18 19:15 Physical Exam Vitals: Vital Signs Temp Pulse Pulse Resp BP BP Pulse Ox 02/01/18 08:42 97.5 F L 65 18 134/64 98 02/01/18 04:00 98.0 F 71 16 141/77 96 02/01/18 00:00 16 01/31/18 22:11 16 01/31/18 21:54 97.8 F 72 16 185/84 96 01/31/18 20:58 79 18 156/78 99 01/31/18 17:47 98.4 F 87 18 151/86 97 Intake and Output 01/31/18 02/01/18 02/01/18 22:59 06:59 14:59 Other: Voiding Method Toilet Toilet Toilet # Voids 2 1 Weight 54.431 kg On exam, alert and oriented x3. HEENT: Conjunctivae normal. eyes normal. NECK: No JVD. No thyroid enlargement. No LNs CARDIOVASCULAR: S1, S2 muffled. No murmur RESPIRATION: Breath sounds diminished in the bases. No rhonchi or crackles. No bronchial breathing. ABDOMEN: Soft, tender in the left lower quadrant. No guarding. no masses palpable. No ascites, No hepatosplenomegaly.Bowel sounds heard. LEGS: No edema. no swelling NERVOUS SYSTEM: Cranial N 2-12 grossly normal. Moves all 4 limbs. No focal deficits. No sensory deficit. No signs of cerebellar dysfucntion. Skin: no ulcer no rash Joints: No active swelling. No inflammation. Lymphatic system. No LN neck axilla or groin. Results CBC & Chem 7: 01/31/18 18:23 01/31/18 18:23 Labs: Abnormal Lab Results - Last 24 Hours (Table) 01/31/18 01/31/18 Range/Units 18:23 20:35 Chloride 111 H (98-107) mmol/L BUN 21 H (7-17) mg/dL Glucose 109 H (74-99) mg/dL Ur Leukocyte Esterase Small H (Negative) Urine WBC 11 H (0-5) /hpf Hyaline Casts 3 H (0-2) /lpf Urine Mucus Occasional H (None) /hpf Microbiology - Last 24 Hours (Table) 01/31/18 20:35 Urine Culture - Preliminary Urine,Voided Thrombosis Risk Factor Assmnt - Choose All That Apply Each Risk Factor Represents 3 Points: Age 75 years or older Thrombosis Risk Factor Assessment Total Risk Factor Score: 3 Thrombosis Risk Factor Assessment Level: Moderate Risk Assessment and Plan Assessment: - Abdominal pain in the left lower quadrant Hypertension -Osteoarthritis - History of skin cancer Plan: Plan - Patient is admitted to observation - We'll continue to monitor the patient - Patient is complaining of abdominal pain and left low quadrant right now. CT done 2 days ago did not show any acute abnormalities - We'll wait for surgery's recommendations regarding this - We'll resume the patient's home medications - DVT and a prophylaxis - Patient does not want CPR but is okay with intubation Time with Patient: Greater than 30
[2018-02-01] MEDS: ASCORBIC ACID 500 MG TAB PO SCH (12:35)
[2018-02-01] MEDS: LACTOBACILLUS ACIDOPH & BULGAR 1 EACH PACKET PO SCH (12:35)
[2018-02-01] MEDS: ATENOLOL 25 MG TAB PO SCH ×2 (12:36→21:15)
[2018-02-01] MEDS: LISINOPRIL 20 MG TAB PO SCH (12:36)
--- NOTE | 2018-02-01 13:46 | P.GSCN ---
History of Present Illness Consult date: 02/01/18 Reason for Consult: Right lower quadrant abdominal pain History of present illness: This 87-year-old female was admitted to the hospital with complaints of abdominal pain. Patient states that she has had chronic abdominal pain. She states that the pain comes and goes. He is mainly in the right lower quadrant. She is tolerating a regular diet today. She states she had less pain this morning however she has had more pain this afternoon. She denies any nausea or vomiting. Past Medical History Past Medical History: Cancer, Hypertension, Musculoskeletal Disorder, Osteoarthritis (OA) Additional Past Medical History / Comment(s): skin cancer, shingles 10/2017, chronic constipation History of Any Multi-Drug Resistant Organisms: None Reported Past Surgical History: Appendectomy, Cholecystectomy, Hysterectomy, Joint Replacement, Tonsillectomy Additional Past Surgical History / Comment(s): jewel. knee replacements; colonoscopies, right shoulder replacement Past Anesthesia/Blood Transfusion Reactions: No Reported Reaction Past Psychological History: Anxiety Additional Psychological History / Comment(s): severe anxiety Smoking Status: Former smoker Past Alcohol Use History: None Reported Additional Past Alcohol Use History / Comment(s): under 1/2 ppd for 10yrs Past Drug Use History: None Reported - Past Family History Mother Family Medical History: No Reported History Medications and Allergies Home Medications Medication Instructions Recorded Confirmed Type Atenolol 25 mg PO BID 01/26/17 01/31/18 History Lisinopril [Prinivil] 20 mg PO DAILY 01/26/17 01/31/18 History ALPRAZolam [Xanax] 0.25 mg PO QID PRN 11/06/17 01/31/18 History Ascorbic Acid [Vitamin C] 500 mg PO DAILY 01/15/18 01/31/18 History L.acidoph,Paracasei, B.lactis 1 cap PO DAILY 01/15/18 01/31/18 History [Probiotic] Vitamin B Complex 1 cap PO DAILY 01/15/18 01/31/18 History Allergies Allergy/AdvReac Type Severity Reaction Status Date / Time codeine AdvReac Rash/Hives Verified 01/31/18 19:15 Penicillins AdvReac Rash/Hives Verified 01/31/18 19:15 Surgical - Exam Vital Signs Temp Pulse Resp BP Pulse Ox 98.4 F 87 18 151/86 97 01/31/18 17:47 01/31/18 17:47 01/31/18 17:47 01/31/18 17:47 01/31/18 17:47 - General well developed, no distress - Eyes PERRL - ENT normal pinna - Neck no masses - Respiratory normal expansion - Cardiovascular Rhythm: regular - Abdomen Abdomen soft. There is some mild tenderness in the right lower quadrant. There is no rebound or guarding. Patient has a well-healed low midline incision scar. Abdomen: soft Results - Labs 01/31/18 18:23 01/31/18 18:23 Abnormal Lab Results - Last 24 Hours (Table) 01/31/18 01/31/18 Range/Units 18:23 20:35 Chloride 111 H (98-107) mmol/L BUN 21 H (7-17) mg/dL Glucose 109 H (74-99) mg/dL Ur Leukocyte Esterase Small H (Negative) Urine WBC 11 H (0-5) /hpf Hyaline Casts 3 H (0-2) /lpf Urine Mucus Occasional H (None) /hpf Microbiology - Last 24 Hours (Table) 01/31/18 20:35 Urine Culture - Preliminary Urine,Voided Diabetes panel 01/31/18 Range/Units 18:23 Sodium 143 (137-145) mmol/L Potassium 4.3 (3.5-5.1) mmol/L Chloride 111 H (98-107) mmol/L Carbon Dioxide 24 (22-30) mmol/L BUN 21 H (7-17) mg/dL Creatinine 0.64 (0.52-1.04) mg/dL Glucose 109 H (74-99) mg/dL Calcium 9.3 (8.4-10.2) mg/dL AST 22 (14-36) U/L ALT 23 (9-52) U/L Alkaline Phosphatase 50 (38-126) U/L Total Protein 6.5 (6.3-8.2) g/dL Albumin 3.7 (3.5-5.0) g/dL Calcium panel 01/31/18 Range/Units 18:23 Calcium 9.3 (8.4-10.2) mg/dL Albumin 3.7 (3.5-5.0) g/dL Pituitary panel 01/31/18 Range/Units 18:23 Sodium 143 (137-145) mmol/L Potassium 4.3 (3.5-5.1) mmol/L Chloride 111 H (98-107) mmol/L Carbon Dioxide 24 (22-30) mmol/L BUN 21 H (7-17) mg/dL Creatinine 0.64 (0.52-1.04) mg/dL Glucose 109 H (74-99) mg/dL Calcium 9.3 (8.4-10.2) mg/dL Adrenal panel 01/31/18 Range/Units 18:23 Sodium 143 (137-145) mmol/L Potassium 4.3 (3.5-5.1) mmol/L Chloride 111 H (98-107) mmol/L Carbon Dioxide 24 (22-30) mmol/L BUN 21 H (7-17) mg/dL Creatinine 0.64 (0.52-1.04) mg/dL Glucose 109 H (74-99) mg/dL Calcium 9.3 (8.4-10.2) mg/dL Total Bilirubin 0.4 (0.2-1.3) mg/dL AST 22 (14-36) U/L ALT 23 (9-52) U/L Alkaline Phosphatase 50 (38-126) U/L Total Protein 6.5 (6.3-8.2) g/dL Albumin 3.7 (3.5-5.0) g/dL Assessment and Plan Assessment: Persistent right lower quadrant pain. Patient will undergo repeat CAT scan with oral contrast to help Dorita ragland.
[2018-02-01] MEDS ORDERED: IOPAMIDOL-300 CONTRAST 30 ML VIAL (ORAL USE) PO PRN (13:59)
--- NOTE | 2018-02-01 16:27 | CT ---
EXAMINATION TYPE: CT abdomen wo con DATE OF EXAM: 02/01/2018 COMPARISON: 01/30/2018 HISTORY: Persistent abdominal pain. CT DLP: 312.2 mGycm Examination of the solid and hollow viscera is limited given the lack of contrast. FINDINGS: LUNG BASES: No evidence for nodule. No evidence for infiltrate. LIVER/GB: The gallbladder is unremarkable. No space-occupying hepatic lesion. PANCREAS: No pancreatic mass identified. No inflammatory process seen. SPLEEN: Multiple splenic granulomas identified. No evidence for splenomegaly. No intrasplenic lesions seen. ADRENALS: No adrenal nodules identified. No evidence for thickening. KIDNEYS: No evidence for renal mass. No nephrolithiasis. No hydronephrosis. BOWEL: Appendix has a normal appearance. No evidence of bowel obstruction. No inflammatory process. Lymph nodes: No evidence for adenopathy greater than 1 cm. Abdominal aorta: Atheromatous changes seen. No evidence for aneurysm. Other: No significant abnormality. IMPRESSION: No significant abnormality.
[2018-02-01] MEDS: oxyCODONE-APAP 5-325MG 1 EACH TAB PO PRN ×2 (16:58→21:19)
[2018-02-02] MEDS: oxyCODONE-APAP 5-325MG 1 EACH TAB PO PRN ×2 (05:31→10:13)
[2018-02-02 08:09] LABS: HGB 13.1 gm/dL (11.4-16.0); MCH 30.2 pg (25.0-35.0); MCHC 32.6 g/dL (31.0-37.0); MCV 92.5 fL (80.0-100.0); Mean Platelet Volume 6.5; Platelet Count 281 k/uL (150-450); RBC 4.33 m/uL (3.80-5.40); RDW 13.2 % (11.5-15.5); WBC 7.6 k/uL (3.8-10.6)
[2018-02-02 08:25] LABS: Anion Gap 7 mmol/L; Blood Urea Nitrogen 12 mg/dL (7-17); Calcium 9.4 mg/dL (8.4-10.2); Carbon Dioxide 27 mmol/L (22-30); Chloride 107 mmol/L (98-107); Glucose 90 mg/dL (74-99); Potassium 4.1 mmol/L (3.5-5.1); Sodium 141 mmol/L (137-145)
[2018-02-02] MEDS: ASCORBIC ACID 500 MG TAB PO SCH (09:27)
[2018-02-02] MEDS: LISINOPRIL 20 MG TAB PO SCH (09:27)
[2018-02-02] MEDS: ATENOLOL 25 MG TAB PO SCH ×2 (09:27→20:12)
[2018-02-02] MEDS: LACTOBACILLUS ACIDOPH & BULGAR 1 EACH PACKET PO SCH (09:27)
[2018-02-02] MEDS: LORazepam 2 MG/ML INJ IV PRN (10:22)
--- NOTE | 2018-02-02 11:56 | P.PN ---
Subjective Progress Note Date: 02/02/18 Principal diagnosis: Abdominal pain Patient apparently still having abdominal pain. The patient's is present at the bedside. He is somewhat argumentative during the history taking. She is tolerating her diet. No nausea or vomiting. Normal bowel functions reportedly. She is afebrile. White blood cell count is normal. Repeat CAT scan abdomen only showed no definite abnormalities. Pain apparently still is in the right mid to lower abdomen. CAT scan was reviewed. I did not visualize an appendix. Patient's states it was removed in the past. She is post cholecystectomy as well. There is no inflammatory changes seen. Objective - Vital Signs Vital signs: Vital Signs Temp 97.2 F L 02/02/18 05:36 Pulse 73 02/02/18 05:36 Resp 14 02/02/18 05:36 BP 145/68 02/02/18 05:36 Pulse Ox 96 02/02/18 05:36 Intake & Output 02/01/18 02/02/18 02/02/18 18:59 06:59 18:59 Intake Total 436 200 Output Total 500 410 Balance 436 -500 -210 Weight 54.431 kg Intake: Oral 236 200 Other 200 Output: Urine 500 410 Straight 500 410 Other: Voiding Method Toilet Toilet # Voids 1 6 - Exam Abdomen: Soft, nontender, nondistended - Labs CBC & Chem 7: 02/02/18 07:25 02/02/18 07:25 Labs: Microbiology - Last 24 Hours (Table) 01/31/18 20:35 Urine Culture - Final Urine,Voided Assessment and Plan (1) Abdominal pain Narrative/Plan: Patient ongoing right-sided pain. Etiology unclear at this time. We'll follow with you. Current Visit: Yes Status: Acute Code(s): R10.9 - UNSPECIFIED ABDOMINAL PAIN SNOMED Code(s): 64908649
--- NOTE | 2018-02-02 13:14 | P.PN ---
Subjective Progress Note Date: 02/02/18 87-year-old female admitted yesterday for abdominal pain. Yesterday she was complaining of pain and left low quadrant. She was originally admitted for pain in the right lower quadrant. 02/02/2018 Patient today crying in pain. She is complaining of pain now in right lower quadrant. She otherwise does not complain of any chest pain or racing heart, no cough no shortness of breath, no nausea and vomiting, or diarrhea constipation. Objective - Vital Signs Vital signs: Vital Signs Temp 97.2 F L 02/02/18 05:36 Pulse 73 02/02/18 05:36 Resp 14 02/02/18 05:36 BP 145/68 02/02/18 05:36 Pulse Ox 96 02/02/18 05:36 Intake & Output 02/01/18 02/02/18 02/02/18 18:59 06:59 18:59 Intake Total 436 200 Output Total 500 410 Balance 436 -500 -210 Weight 54.431 kg Intake: Oral 236 200 Other 200 Output: Urine 500 410 Straight 500 410 Other: Voiding Method Toilet Toilet # Voids 1 6 - Exam On exam, alert and oriented x3. Patient is crying and looks agitated HEENT: Conjunctivae normal. eyes normal. NECK: No JVD. No thyroid enlargement. No LNs CARDIOVASCULAR: S1-S2 positive RESPIRATION: Breath sounds diminished in the bases. No rhonchi or crackles. No bronchial breathing. ABDOMEN: Soft, tenderness in the right lower quadrant. No guarding. no masses palpable. No ascites, No hepatosplenomegaly.Bowel sounds heard. LEGS: No edema. no swelling NERVOUS SYSTEM: Cranial N 2-12 grossly normal. Moves all 4 limbs. No focal deficits. No sensory deficit. No signs of cerebellar dysfucntion. Skin: no ulcer no rash Joints: No active swelling. No inflammation. Lymphatic system. No LN neck axilla or groin. - Labs CBC & Chem 7: 02/02/18 07:25 02/02/18 07:25 Labs: Microbiology - Last 24 Hours (Table) 01/31/18 20:35 Urine Culture - Final Urine,Voided Assessment and Plan Assessment: - Abdominal pain today in the right lower quadrant Hypertension -Osteoarthritis - History of skin cancer - History of psychiatric issues Plan: - Patient crying because of pain looks agitated. Today she is complaining of pain in the right low quadrant. For me yesterday she was having absolutely no pain in the right lower quadrant and was complaining of pain in the left lower quadrant. It looks like she is probably having some psychiatric issues going on. - Surgery is on the case. CT of the abdomen pelvis was ordered but showed no acute abnormality - We'll continue pain management - We'll continue to follow the patient
--- NOTE | 2018-02-02 18:36 | P.CN ---
Psychiatric Consult - . Consult date: 02/02/18 Consult:: 02/02/18 18:28 Ms. Mcginnis is 87 yo female with h/o depression, anxiety and multiple medical problems admitted here secondary to chronic pain and altered mental status. She has been crying constantly complaining about body aches and pains. She told me that she has bladder infection. She is very anxious and confused. She is completely disoriented and irritable. Found her in moderate distress. She reports feeling anxious and stressed out. Has not been sleeping good for last few weeks. Takes Xanax for anxiety. She denies feeling depressed, manic or psychotic. Denies any suicidal ideation. PPH : Anxiety PMH : see HPI Current Psych medications : Xanax MSE : She is disoriented in time and place. Oriented to person alone. Irritable and anxious. Fair eye contact. Speech loud and pressured. Mood irritable and anxious with congruent affect. Denies any suicidal or homicidal ideation. Paranoid delusional. Has no auditory/Visual hallucinations. Memory short term impaired. FPC fair Insight and judgment impaired. A/P : Delirium, Resolving Early onset dementia ( Rule out Lewy Body Dementia) Panic disorder Plan :Will start low dose of remeron 15 mg po qhs and Seroquel 12.5 mg po BID. may add Aricept 5 mg po qhs. Psychiatry will Follow
[2018-02-02] MEDS: DONEPEZIL 5 MG TAB PO SCH (20:12)
[2018-02-02] MEDS: QUEtiapine 25 MG TAB PO SCH (20:12)
[2018-02-02] MEDS: MIRTAZAPINE 15 MG TAB PO SCH (20:12)
[2018-02-03] MEDS: LACTOBACILLUS ACIDOPH & BULGAR 1 EACH PACKET PO SCH (08:42)
[2018-02-03] MEDS: QUEtiapine 25 MG TAB PO SCH ×2 (08:42→20:33)
[2018-02-03] MEDS: LISINOPRIL 20 MG TAB PO SCH (08:44)
[2018-02-03] MEDS: ASCORBIC ACID 500 MG TAB PO SCH (08:44)
[2018-02-03] MEDS: ATENOLOL 25 MG TAB PO SCH ×2 (08:44→20:33)
--- NOTE | 2018-02-03 12:01 | P.PN ---
Subjective 87-year-old female admitted yesterday for abdominal pain. Yesterday she was complaining of pain and left low quadrant. She was originally admitted for pain in the right lower quadrant. 02/02/2018 Patient today crying in pain. She is complaining of pain now in right lower quadrant. She otherwise does not complain of any chest pain or racing heart, no cough no shortness of breath, no nausea and vomiting, or diarrhea constipation. 02/03/2018 Patient presents because of abdominal pain and she's been evaluated with a surgeon and she had negative CAT scan of the abdomen. However today patient told me her abdominal pain is completely resolved and abdominal examination was benign with no tenderness. However she complains from right lower back pain which she says is about one week, nonspecific, nonradiating pain so she did weakness in arms or legs. At baseline she walks only for short distances with a walker or the help of her to and from the bathroom. Vitas looks stable and labs are unremarkable. Objective - Vital Signs Vital signs: Vital Signs Temp 98.5 F 02/03/18 07:00 Pulse 83 02/03/18 07:00 Resp 16 02/03/18 07:00 BP 131/79 02/03/18 07:00 Pulse Ox 94 L 02/03/18 07:00 Intake & Output 02/02/18 02/03/18 02/03/18 18:59 06:59 18:59 Intake Total 500 120 Output Total 820 1000 Balance -320 -1000 120 Weight 54.431 kg Intake: Oral 500 120 Output: Urine 820 1000 Straight 820 Other: Voiding Method Toilet # Voids 5 - Exam GENERAL: The patient is alert and oriented x3, not in any acute distress. Well developed, well nourished. HEENT: Pupils are round and equally reacting to light. EOMI. No scleral icterus. No conjunctival pallor. Normocephalic, atraumatic. No pharyngeal erythema. No thyromegaly. CARDIOVASCULAR: S1 and S2 present. No murmurs, rubs, or gallops. PULMONARY: Chest is clear to auscultation, no wheezing or crackles. ABDOMEN: Soft, nontender, nondistended, normoactive bowel sounds. No palpable organomegaly. MUSCULOSKELETAL: No joint swelling or deformity. EXTREMITIES: No cyanosis, clubbing, or pedal edema. NEUROLOGICAL: Gross neurological examination did not reveal any focal deficits. SKIN: No rashes. - Labs CBC & Chem 7: 02/02/18 07:25 02/02/18 07:25 Assessment and Plan Assessment: - Abdominal pain, resolved - Acute right lower back pain, mostly musculoskeletal - Hypertension - Osteoarthritis - History of skin cancer - History of psychiatric issues Plan: This is a pleasant 87 years old female who presents because of abdominal pain, which is now resolved on complaining of from back pain. Discontinue NSAIDs and start lidocaine patch. Psych evaluation is appreciated. Labs and medication were reviewed.. Continue same treatment. Continue with symptomatic treatment. Resume home medication. Monitor lytes and vitals. DVT and GI prophylaxis. Further recommendations of the clinical course of the patient DVT prophylaxis: Subcutaneous heparin GI Prophylaxis: Pepcid PT/OT: Is ordered and is Pending Prognosis is guarded
--- NOTE | 2018-02-03 12:34 | P.PN ---
Subjective Progress Note Date: 02/03/18 Principal diagnosis: Abdominal pain Patient feels better at this time. Apparently she had some relief with Friedman catheter placement. Tolerating diet. Objective - Vital Signs Vital signs: Vital Signs Temp 98.5 F 02/03/18 07:00 Pulse 83 02/03/18 07:00 Resp 16 02/03/18 07:00 BP 131/79 02/03/18 07:00 Pulse Ox 94 L 02/03/18 07:00 Intake & Output 02/02/18 02/03/18 02/03/18 18:59 06:59 18:59 Intake Total 500 120 Output Total 820 1000 Balance -320 -1000 120 Weight 54.431 kg Intake: Oral 500 120 Output: Urine 820 1000 Straight 820 Other: Voiding Method Toilet # Voids 5 - Exam Abdomen: Soft, nontender, nondistended - Labs CBC & Chem 7: 02/02/18 07:25 02/02/18 07:25 Assessment and Plan (1) Abdominal pain Narrative/Plan: Patient's pain seems improved. Possibly on the basis of urinary retention. We' ll sign off at this point. Please call if needed. Current Visit: Yes Status: Acute Code(s): R10.9 - UNSPECIFIED ABDOMINAL PAIN SNOMED Code(s): 64747760
[2018-02-03] MEDS: LIDOCAINE 5% PATCH TOPICAL SCH (13:45)
[2018-02-03] MEDS: LORazepam 2 MG/ML INJ IV PRN (18:12)
[2018-02-03] MEDS: MIRTAZAPINE 15 MG TAB PO SCH (20:33)
[2018-02-03] MEDS: DONEPEZIL 5 MG TAB PO SCH (20:33)
[2018-02-03] MEDS: FAMOTIDINE 20 MG/2 ML VIAL IV SCH (20:33)
[2018-02-03] MEDS: HEPARIN SODIUM,PORCINE 5,000 UNIT/ML 1 ML VIAL SQ SCH (20:33)
[2018-02-04] MEDS: LISINOPRIL 20 MG TAB PO SCH (08:37)
[2018-02-04] MEDS: ATENOLOL 25 MG TAB PO SCH ×2 (08:37→20:04)
[2018-02-04] MEDS: LACTOBACILLUS ACIDOPH & BULGAR 1 EACH PACKET PO SCH (08:38)
[2018-02-04] MEDS: QUEtiapine 25 MG TAB PO SCH ×2 (08:39→20:12)
[2018-02-04] MEDS: ASCORBIC ACID 500 MG TAB PO SCH (08:39)
[2018-02-04] MEDS: FAMOTIDINE 20 MG/2 ML VIAL IV SCH ×2 (08:39→20:12)
[2018-02-04] MEDS: LIDOCAINE 5% PATCH TOPICAL SCH (08:39)
[2018-02-04] MEDS: HEPARIN SODIUM,PORCINE 5,000 UNIT/ML 1 ML VIAL SQ SCH ×2 (08:39→20:12)
[2018-02-04] MEDS ORDERED: POLYETHYLENE GLYCOL 3350 17 GM POWD.PACK PO STA (14:22)
[2018-02-04] MEDS: MIRTAZAPINE 15 MG TAB PO SCH (20:12)
[2018-02-04] MEDS: DONEPEZIL 5 MG TAB PO SCH (20:12)
--- NOTE | 2018-02-04 22:03 | P.PN ---
Subjective Progress Note Date: 02/04/18 Principal diagnosis: Abdominal pain, urinary retention, constipation, 87-year-old female admitted yesterday for abdominal pain. Yesterday she was complaining of pain and left low quadrant. She was originally admitted for pain in the right lower quadrant. 02/02/2018 Patient today crying in pain. She is complaining of pain now in right lower quadrant. She otherwise does not complain of any chest pain or racing heart, no cough no shortness of breath, no nausea and vomiting, or diarrhea constipation. 02/03/2018 Patient presents because of abdominal pain and she's been evaluated with a surgeon and she had negative CAT scan of the abdomen. However today patient told me her abdominal pain is completely resolved and abdominal examination was benign with no tenderness. However she complains from right lower back pain which she says is about one week, nonspecific, nonradiating pain so she did weakness in arms or legs. At baseline she walks only for short distances with a walker or the help of her to and from the bathroom. Vitas looks stable and labs are unremarkable. Patient denied any complaints of chest pain or shortness of breath. Abdominal pain seems to be improved after Friedman catheter placement. Otherwise patient complains of constipation and not having bowel movement since last Sunday. Patient was started on laxatives and stool softeners and increased ambulation. Patient otherwise will be continued on Aricept, Seroquel and Remeron as per psychiatric recommendations. No complaints of fever or chills. No nausea no vomiting. No headache or dizziness or lightheadedness. Current medications reviewed Objective - Vital Signs Vital signs: Vital Signs Temp 97.7 F 02/04/18 15:11 Pulse 70 02/04/18 15:11 Resp 19 02/04/18 15:11 BP 95/58 02/04/18 15:11 Pulse Ox 94 L 02/04/18 15:11 Intake & Output 02/04/18 02/04/18 02/05/18 06:59 18:59 06:59 Intake Total 40 Output Total 375 800 Balance -335 -800 Weight 54.431 kg Intake: Oral 40 Output: Urine 375 800 Other: Voiding Method Indwelling Catheter Indwelling Catheter - Exam GENERAL: The patient is alert and oriented x3, not in any acute distress. Well developed, well nourished. HEENT: Pupils are round and equally reacting to light. EOMI. No scleral icterus. No conjunctival pallor. Normocephalic, atraumatic. No pharyngeal erythema. No thyromegaly. CARDIOVASCULAR: S1 and S2 present. No murmurs, rubs, or gallops. PULMONARY: Chest is clear to auscultation, no wheezing or crackles. ABDOMEN: Soft, nontender, nondistended, normoactive bowel sounds. No palpable organomegaly. MUSCULOSKELETAL: No joint swelling or deformity. EXTREMITIES: No cyanosis, clubbing, or pedal edema. NEUROLOGICAL: Gross neurological examination did not reveal any focal deficits. SKIN: No rashe - Labs CBC & Chem 7: 02/02/18 07:25 02/02/18 07:25 Assessment and Plan Assessment: - Abdominal pain likely due to urinary retention. resolved - Constipation - Acute right lower back pain, mostly musculoskeletal - Hypertension - Osteoarthritis - History of skin cancer - History of psychiatric issues Plan: This is a pleasant 87 years old female who presents because of abdominal pain, which is now resolved on complaining of from back pain. Discontinue NSAIDs and start lidocaine patch. Psych evaluation is appreciated. Labs and medication were reviewed.. Continue same treatment. Continue with symptomatic treatment. Resume home medication. Monitor lytes and vitals. DVT and GI prophylaxis. Trial void tomorrow November having good bowel movement and encouraged ambulation. Further recommendations of the clinical course of the patient DVT prophylaxis: Subcutaneous heparin GI Prophylaxis: Pepcid PT/OT: Is ordered and is Pending Prognosis is guarded Time with Patient: Greater than 30
[2018-02-05] MEDS: oxyCODONE-APAP 5-325MG 1 EACH TAB PO PRN (00:01)
[2018-02-05] MEDS: ASCORBIC ACID 500 MG TAB PO SCH (07:51)
[2018-02-05] MEDS: ATENOLOL 25 MG TAB PO SCH ×2 (07:51→21:07)
[2018-02-05] MEDS: LACTOBACILLUS ACIDOPH & BULGAR 1 EACH PACKET PO SCH (07:51)
[2018-02-05] MEDS: LIDOCAINE 5% PATCH TOPICAL SCH (07:51)
[2018-02-05] MEDS: QUEtiapine 25 MG TAB PO SCH ×2 (07:51→21:08)
[2018-02-05] MEDS: HEPARIN SODIUM,PORCINE 5,000 UNIT/ML 1 ML VIAL SQ SCH ×2 (07:51→21:10)
[2018-02-05] MEDS: LISINOPRIL 20 MG TAB PO SCH (07:51)
[2018-02-05] MEDS: FAMOTIDINE 20 MG/2 ML VIAL IV SCH ×2 (07:52→21:09)
[2018-02-05] MEDS ORDERED: POLYETHYLENE GLYCOL 3350 17 GM POWD.PACK PO STA (13:35)
[2018-02-05] MEDS: LORazepam 2 MG/ML INJ IV PRN ×2 (16:56→23:05)
[2018-02-05] MEDS: DONEPEZIL 5 MG TAB PO SCH (21:09)
[2018-02-05] MEDS: MIRTAZAPINE 15 MG TAB PO SCH (21:10)
[2018-02-06] MEDS: LIDOCAINE 5% PATCH TOPICAL SCH (07:37)
[2018-02-06] MEDS: HEPARIN SODIUM,PORCINE 5,000 UNIT/ML 1 ML VIAL SQ SCH ×2 (07:38→22:41)
[2018-02-06] MEDS: LACTOBACILLUS ACIDOPH & BULGAR 1 EACH PACKET PO SCH (07:38)
[2018-02-06] MEDS: ASCORBIC ACID 500 MG TAB PO SCH (07:38)
[2018-02-06] MEDS: LISINOPRIL 20 MG TAB PO SCH (07:38)
[2018-02-06] MEDS: FAMOTIDINE 20 MG/2 ML VIAL IV SCH ×2 (07:38→22:41)
[2018-02-06] MEDS: ATENOLOL 25 MG TAB PO SCH ×2 (07:39→21:50)
[2018-02-06] MEDS: QUEtiapine 25 MG TAB PO SCH ×2 (07:39→21:51)
[2018-02-06 14:45] LABS: Basophils # (A) 0.1 k/uL (0-0.2); Basophils % (A) 1 %; Eosinophils # (A) 0.2 k/uL (0-0.7); Eosinophils % (A) 2 %; HCT 43.4 % (34.0-46.0); HGB 13.7 gm/dL (11.4-16.0); Lymphocytes # (A) 1.7 k/uL (1.0-4.8); Lymphocytes % (A) 17 %; MCH 30.1 pg (25.0-35.0); MCHC 31.6 g/dL (31.0-37.0); MCV 95.1 fL (80.0-100.0); Mean Platelet Volume 6.7; Monocytes # (A) 0.8 k/uL (0-1.0); Monocytes % (A) 8 %; Neutrophils # (A) 6.9 k/uL (1.3-7.7); Neutrophils % (A) 70 %; Platelet Count 402 k/uL (150-450); RBC 4.56 m/uL (3.80-5.40); RDW 13.5 % (11.5-15.5); WBC 9.8 k/uL (3.8-10.6)
--- NOTE | 2018-02-06 14:54 | P.PN ---
Subjective Progress Note Date: 02/05/18 Principal diagnosis: Abdominal pain, urinary retention, constipation, 87-year-old female admitted yesterday for abdominal pain. Yesterday she was complaining of pain and left low quadrant. She was originally admitted for pain in the right lower quadrant. 02/02/2018 Patient today crying in pain. She is complaining of pain now in right lower quadrant. She otherwise does not complain of any chest pain or racing heart, no cough no shortness of breath, no nausea and vomiting, or diarrhea constipation. 02/03/2018 Patient presents because of abdominal pain and she's been evaluated with a surgeon and she had negative CAT scan of the abdomen. However today patient told me her abdominal pain is completely resolved and abdominal examination was benign with no tenderness. However she complains from right lower back pain which she says is about one week, nonspecific, nonradiating pain so she did weakness in arms or legs. At baseline she walks only for short distances with a walker or the help of her to and from the bathroom. Vitas looks stable and labs are unremarkable. Patient denied any complaints of chest pain or shortness of breath. Abdominal pain seems to be improved after Friedman catheter placement. Otherwise patient complains of constipation and not having bowel movement since last Sunday. Patient was started on laxatives and stool softeners and increased ambulation. Patient otherwise will be continued on Aricept, Seroquel and Remeron as per psychiatric recommendations. 02/05/2018 Patient denied any complaints of chest pain or shortness of breath. Did not have any bowel movement. Patient will be given a dose of MiraLAX. Friedman catheter will be continued until bowel movement. Continue with the psychiatric medications otherwise. Encourage ambulation and follow. No complaints of fever or chills. No nausea no vomiting. No headache or dizziness or lightheadedness. Current medications reviewed Objective - Vital Signs Vital signs: Vital Signs Temp 97.6 F 02/05/18 14:20 Pulse 92 02/05/18 14:20 Resp 20 02/05/18 14:20 BP 129/72 02/05/18 14:20 Pulse Ox 97 02/05/18 14:20 Intake & Output 02/05/18 02/05/18 02/06/18 06:59 18:59 06:59 Intake Total 500 Output Total 400 825 Balance 100 -825 Weight 54.431 kg Intake: Oral 500 Output: Urine 400 825 Uretheral (Friedman) 175 Other: Voiding Method Indwelling Catheter Indwelling Catheter # Bowel Movements 1 - Exam GENERAL: The patient is alert and oriented x3, not in any acute distress. Well developed, well nourished. HEENT: Pupils are round and equally reacting to light. EOMI. No scleral icterus. No conjunctival pallor. Normocephalic, atraumatic. No pharyngeal erythema. No thyromegaly. CARDIOVASCULAR: S1 and S2 present. No murmurs, rubs, or gallops. PULMONARY: Chest is clear to auscultation, no wheezing or crackles. ABDOMEN: Soft, nontender, nondistended, normoactive bowel sounds. No palpable organomegaly. MUSCULOSKELETAL: No joint swelling or deformity. EXTREMITIES: No cyanosis, clubbing, or pedal edema. NEUROLOGICAL: Gross neurological examination did not reveal any focal deficits. SKIN: No rashe - Labs CBC & Chem 7: 02/06/18 14:33 02/02/18 07:25 Assessment and Plan Assessment: - Abdominal pain likely due to urinary retention. resolved - Constipation - Acute right lower back pain, mostly musculoskeletal - Hypertension - Osteoarthritis - History of skin cancer - History of psychiatric issues Plan: This is a pleasant 87 years old female who presents because of abdominal pain, which is now resolved on complaining of from back pain. Discontinue NSAIDs and start lidocaine patch. Psych evaluation is appreciated. Labs and medication were reviewed.. Continue same treatment. Continue with symptomatic treatment. Resume home medication. Monitor lytes and vitals. DVT and GI prophylaxis. Trial void tomorrow after having good bowel movement and encouraged ambulation. Further recommendations of the clinical course of the patient DVT prophylaxis: Subcutaneous heparin GI Prophylaxis: Pepcid PT/OT: Is ordered and is Pending Prognosis is guarded
[2018-02-06 15:03] LABS: Calcium 9.7 mg/dL (8.4-10.2); Potassium 4.1 mmol/L (3.5-5.1)
[2018-02-06] MEDS: LORazepam 2 MG/ML INJ IV PRN ×2 (15:49→21:38)
[2018-02-06] MEDS: MIRTAZAPINE 15 MG TAB PO SCH (21:51)
[2018-02-06] MEDS: DONEPEZIL 5 MG TAB PO SCH (21:51)
--- NOTE | 2018-02-06 22:45 | P.PN ---
Subjective Progress Note Date: 02/06/18 Principal diagnosis: Abdominal pain, urinary retention, constipation, 87-year-old female admitted yesterday for abdominal pain. Yesterday she was complaining of pain and left low quadrant. She was originally admitted for pain in the right lower quadrant. 02/02/2018 Patient today crying in pain. She is complaining of pain now in right lower quadrant. She otherwise does not complain of any chest pain or racing heart, no cough no shortness of breath, no nausea and vomiting, or diarrhea constipation. 02/03/2018 Patient presents because of abdominal pain and she's been evaluated with a surgeon and she had negative CAT scan of the abdomen. However today patient told me her abdominal pain is completely resolved and abdominal examination was benign with no tenderness. However she complains from right lower back pain which she says is about one week, nonspecific, nonradiating pain so she did weakness in arms or legs. At baseline she walks only for short distances with a walker or the help of her to and from the bathroom. Vitas looks stable and labs are unremarkable. Patient denied any complaints of chest pain or shortness of breath. Abdominal pain seems to be improved after Friedman catheter placement. Otherwise patient complains of constipation and not having bowel movement since last Sunday. Patient was started on laxatives and stool softeners and increased ambulation. Patient otherwise will be continued on Aricept, Seroquel and Remeron as per psychiatric recommendations. 02/05/2018 Patient denied any complaints of chest pain or shortness of breath. Did not have any bowel movement. Patient will be given a dose of MiraLAX. Friedman catheter will be continued until bowel movement. Continue with the psychiatric medications otherwise. Encourage ambulation and follow. 02/06/2018 Patient denied any complaints of chest pain or shortness of breath. Friedman catheter has been discontinued. A large bowel movement yesterday. Patient is able to wire spontaneously. Otherwise patient is very lethargic and and is in deep mind as per her at bedside. Family would like to talk to psychiatry. Otherwise no acute overnight issues. No complaints of fever or chills. No nausea no vomiting. No headache or dizziness or lightheadedness. Current medications reviewed Objective - Vital Signs Vital signs: Vital Signs Temp 97.1 F L 02/06/18 07:38 Pulse 75 02/06/18 07:38 Resp 20 02/06/18 07:38 BP 139/80 02/06/18 07:38 Pulse Ox 97 02/06/18 07:38 Intake & Output 02/05/18 02/06/18 02/06/18 18:59 06:59 18:59 Output Total 825 Balance -825 Output: Urine 825 Uretheral (Friedman) 175 Other: Voiding Method Indwelling Catheter # Bowel Movements 1 - Exam GENERAL: The patient is alert and oriented x3, not in any acute distress. Well developed, well nourished. HEENT: Pupils are round and equally reacting to light. EOMI. No scleral icterus. No conjunctival pallor. Normocephalic, atraumatic. No pharyngeal erythema. No thyromegaly. CARDIOVASCULAR: S1 and S2 present. No murmurs, rubs, or gallops. PULMONARY: Chest is clear to auscultation, no wheezing or crackles. ABDOMEN: Soft, nontender, nondistended, normoactive bowel sounds. No palpable organomegaly. MUSCULOSKELETAL: No joint swelling or deformity. EXTREMITIES: No cyanosis, clubbing, or pedal edema. NEUROLOGICAL: Gross neurological examination did not reveal any focal deficits. SKIN: No rashe - Labs CBC & Chem 7: 02/06/18 14:33 02/06/18 14:33 Assessment and Plan Assessment: - Abdominal pain likely due to urinary retention. resolved. Status post Friedman catheter and removal. - Constipation. Resolved - Acute right lower back pain, mostly musculoskeletal - Hypertension - Osteoarthritis - History of skin cancer - History of psychiatric issues - Delirium, early onset dementia and panic disorder Plan: This is a pleasant 87 years old female who presents because of abdominal pain, which is now resolved on complaining of from back pain. Discontinue NSAIDs and start lidocaine patch. Psych evaluation is appreciated. Labs and medication were reviewed.. Continue same treatment. Continue with symptomatic treatment. Resume home medication. Monitor lytes and vitals. DVT and GI prophylaxis. Trial void tomorrow after having good bowel movement and encouraged ambulation. Further recommendations of the clinical course of the patient DVT prophylaxis: Subcutaneous heparin GI Prophylaxis: Pepcid PT/OT Prognosis is guarded Time with Patient: Greater than 30
[2018-02-07 06:37] VITALS: BP 112/63; PULSE 70; RESP 16; TEMP 97.4
[2018-02-07] MEDS: LORazepam 2 MG/ML INJ IV PRN (08:03)
[2018-02-07] MEDS: HEPARIN SODIUM,PORCINE 5,000 UNIT/ML 1 ML VIAL SQ SCH (08:06)
[2018-02-07] MEDS: LISINOPRIL 20 MG TAB PO SCH (08:06)
[2018-02-07] MEDS: LACTOBACILLUS ACIDOPH & BULGAR 1 EACH PACKET PO SCH (08:06)
[2018-02-07] MEDS: FAMOTIDINE 20 MG/2 ML VIAL IV SCH (08:06)
[2018-02-07] MEDS: QUEtiapine 25 MG TAB PO SCH (08:07)
[2018-02-07] MEDS: ATENOLOL 25 MG TAB PO SCH (08:07)
[2018-02-07] MEDS: ASCORBIC ACID 500 MG TAB PO SCH (08:07)
[2018-02-07] MEDS: LIDOCAINE 5% PATCH TOPICAL SCH (08:13)
--- NOTE | 2018-02-08 00:34 | P.DS ---
Providers Date of admission: 02/02/18 15:14 Expected date of discharge: 02/07/18 Attending physician: Mary Christopher Consults: 02/01/18 07:58 Consult Physician Routine Consulting Provider: Nasir Thomas Consult Reason/Comments: abdominal pain Do you want consulting provider notified?: Yes, Notify in am 02/02/18 12:46 Consult Physician Routine Consulting Provider: Diego Horta Consult Reason/Comments: paranoid pain, anxiety Do you want consulting provider notified?: Yes 02/07/18 07:47 Consult Physician Routine Consulting Provider: Diego Horta Consult Reason/Comments: medications not effective Do you want consulting provider notified?: Already Contacted Primary care physician: Adonay Tomas Hospital Course: Discharge diagnosis - Abdominal pain likely due to urinary retention. resolved. Status post Friemdan catheter and removal. - Constipation. Resolved - Acute right lower back pain, mostly musculoskeletal - Hypertension - Osteoarthritis - History of skin cancer - History of psychiatric issues - Delirium, early onset dementia and panic disorder. Patient's refuses to take medications include Remeron, Seroquel and Aricept. Hospital course 87-year-old female admitted yesterday for abdominal pain. Yesterday she was complaining of pain and left low Aricept. She was originally admitted for pain in the right lower quadrant. 02/02/2018 Patient today crying in pain. She is complaining of pain now in right lower quadrant. She otherwise does not complain of any chest pain or racing heart, no cough no shortness of breath, no nausea and vomiting, or diarrhea constipation. 02/03/2018 Patient presents because of abdominal pain and she's been evaluated with a surgeon and she had negative CAT scan of the abdomen. However today patient told me her abdominal pain is completely resolved and abdominal examination was benign with no tenderness. However she complains from right lower back pain which she says is about one week, nonspecific, nonradiating pain so she did weakness in arms or legs. At baseline she walks only for short distances with a walker or the help of her to and from the bathroom. Vitas looks stable and labs are unremarkable. Patient denied any complaints of chest pain or shortness of breath. Abdominal pain seems to be improved after Friedman catheter placement. Otherwise patient complains of constipation and not having bowel movement since last Sunday. Patient was started on laxatives and stool softeners and increased ambulation. Patient otherwise will be continued on Aricept, Seroquel and Remeron as per psychiatric recommendations. 02/05/2018 Patient denied any complaints of chest pain or shortness of breath. Did not have any bowel movement. Patient will be given a dose of MiraLAX. Friedman catheter will be continued until bowel movement. Continue with the psychiatric medications otherwise. Encourage ambulation and follow. 02/06/2018 Patient denied any complaints of chest pain or shortness of breath. Friedman catheter has been discontinued. A large bowel movement yesterday. Patient is able to wire spontaneously. Otherwise patient is very lethargic and and is in deep mind as per her at bedside. Family would like to talk to psychiatry. Otherwise no acute overnight issues. 02/07/2018 Patient is able to void spontaneously. No complaints of abdominal pain. Otherwise patient's refuses to take psychiatric and dementia medications saying that they're causing her mood swings. Otherwise patient is stable to be discharged home. Discharge physical examination PHYSICAL EXAMINATION: Patient is lying in the bed comfortably, no acute distress, awake alert and oriented.. HEENT: Normocephalic. Neck is supple. Pupils reactive. Nostrils clear. Oral cavity is moist. Ears reveal no drainage. Neck reveals no JVD, carotid bruits, or thyromegaly. CHEST EXAMINATION: Trachea is central. Symmetrical expansion. Lung mitchell clear to auscultation and percussion. CARDIAC: Normal S1, S2 with no gallops. No murmurs ABDOMEN: Soft. Bowel sounds normal. No organomegaly. No abdominal bruits. Extremities: reveal no edema. No clubbing or cyanosis Neurologically awake, alert, oriented x2-3 with well-coordinated movements. No focal deficits noted Skin: No rash or skin lesions. Psychiatric: Coperative. Nonsuicidal Musculoskeletal: No joint swelling or deformity. Normal range of motion. Vital Signs - 24 hr 02/07/18 02/07/18 02/07/18 06:36 08:00 13:11 Temperature 97.4 F L Pulse Rate [ 70 Pulse Oximetery ] Respiratory 16 16 16 Rate Blood Pressure 112/63 [Left Arm] O2 Sat by Pulse 97 Oximetry Total time taken greater than 35 minutes including 18 minutes for counseling and coordination of care. Patient Condition at Discharge: Stable Plan - Discharge Summary New Discharge Prescriptions: Continue Atenolol 25 mg PO BID Lisinopril [Prinivil] 20 mg PO DAILY Vitamin B Complex 1 cap PO DAILY Ascorbic Acid [Vitamin C] 500 mg PO DAILY L.acidoph,Paracasei, B.lactis [Probiotic] 1 cap PO DAILY Changed ALPRAZolam [Xanax] 0.25 mg PO TID PRN #0 PRN Reason: Anxiety Discharge Medication List Atenolol 25 mg PO BID 01/26/17 [History] Lisinopril [Prinivil] 20 mg PO DAILY 01/26/17 [History] Ascorbic Acid [Vitamin C] 500 mg PO DAILY 01/15/18 [History] L.acidoph,Paracasei, B.lactis [Probiotic] 1 cap PO DAILY 01/15/18 [History] Vitamin B Complex 1 cap PO DAILY 01/15/18 [History] ALPRAZolam [Xanax] 0.25 mg PO TID PRN #0 02/07/18 [Rx] Follow up Appointment(s)/Referral(s): Adonay Tomas MD [Primary Care Provider] - 1-2 days [facility], [NON-STAFF] - 1 Week Patient Instructions/Handouts: Abdominal Pain (ED) Discharge Disposition: Left Against Medical Advice
[2018-02-08] MEDS ORDERED: FAMOTIDINE 20 MG TAB PO SCH (09:00)
== END 2018-02-07 14:17 | disposition home or self-care (01) | DRG 696 ==
LOC: EC 17:42 → 1SOBS 21:17 → 4MS4W 02-01 16:40 → OBSVTOIN 02-02 15:14 → INTOOBSV 02-02 15:14
PROVIDERS: ADMIT Internal Medicine; ATTEND Internal Medicine
DX: R33.9 Retention of urine, unspecified (principal); F03.90 Unspecified dementia, unspecified severity, without behavioral disturbance, psychotic disturbance, mood disturbance, and anxiety; F41.0 Panic disorder [episodic paroxysmal anxiety]; I10 Essential (primary) hypertension; K21.9 Gastro-esophageal reflux disease without esophagitis; K57.90 Diverticulosis of intestine, part unspecified, without perforation or abscess without bleeding; K59.00 Constipation, unspecified; M19.90 Unspecified osteoarthritis, unspecified site; Z79.899 Other long term (current) drug therapy; Z85.828 Personal history of other malignant neoplasm of skin; Z87.440 Personal history of urinary (tract) infections; Z87.891 Personal history of nicotine dependence; Z90.710 Acquired absence of both cervix and uterus; Z96.611 Presence of right artificial shoulder joint; Z96.653 Presence of artificial knee joint, bilateral; Z88.5 Allergy status to narcotic agent; Z88.0 Allergy status to penicillin; Z90.49 Acquired absence of other specified parts of digestive tract
CPT/HCPCS: 36415; 74018; 74150; 74177; 80048; 80053; 81001; 82150; 82272; 83605; 83690; 84484; 85025; 85027; 85610; 85730; 87086; 93005; 96361; 96374; 96375; 99285

== ENCOUNTER 2018-02-10 06:53 | Emergency (ER) | payer MEDICARE, BC ==
[2018-02-10 07:01] VITALS: BP 136/81; PULSE 82; RESP 21; TEMP 97.8
--- NOTE | 2018-02-10 07:29 | ED ---
General Adult HPI - General Chief complaint: Upper Respiratory Infection Stated complaint: Cold Source: patient Mode of arrival: wheelchair Limitations: no limitations - History of Present Illness Initial comments: Dictation was produced using [employer] dictation software. please excuse any grammatical, word or spelling errors. Chief Complaint: 87-year-old male with past medical history of psychiatric disease, dementia, hypertension presents with chief complaint of sore throat. History of Present Illness: He does 87-year-old female who was recently admitted to the hospital for flank pain/abdominal pain workup. Patient was discharged approximately 3 days ago. At time of discharge patient began experiencing symptoms of sore throat. Patient was at home recovering when she felt as though her sore throat was getting worse. Patient was brought in by . He feels as though her voice has changed slightly. He believes that there is infection that will from his throat into her chest. Patient denies any pain complaints. She denies any symptoms of shortness of breath. Patient is however, a poor historian. The ROS documented in this emergency department record has been reviewed and confirmed by me. Those systems with pertinent positive or negative responses have been documented in the HPI. All other systems are other negative and/or noncontributory. - Related Data Home Medications Medication Instructions Recorded Confirmed Atenolol 25 mg PO BID 01/26/17 02/10/18 Lisinopril [Prinivil] 20 mg PO DAILY 01/26/17 02/10/18 Ascorbic Acid [Vitamin C] 500 mg PO DAILY 01/15/18 02/10/18 L.acidoph,Paracasei, B.lactis 1 cap PO DAILY 01/15/18 02/10/18 [Probiotic] Vitamin B Complex 1 cap PO DAILY 01/15/18 02/10/18 Previous Rx's Medication Instructions Recorded ALPRAZolam [Xanax] 0.25 mg PO TID PRN #0 02/07/18 Allergies Allergy/AdvReac Type Severity Reaction Status Date / Time codeine AdvReac Rash/Hives Verified 02/10/18 08:06 Penicillins AdvReac Rash/Hives Verified 02/10/18 08:06 Review of Systems ROS Statement: Those systems with pertinent positive or pertinent negative responses have been documented in the HPI. ROS Other: All systems not noted in ROS Statement are negative. Past Medical History Past Medical History: Cancer, Hypertension, Musculoskeletal Disorder, Osteoarthritis (OA) Additional Past Medical History / Comment(s): skin cancer, shingles 10/2017, chronic constipation History of Any Multi-Drug Resistant Organisms: None Reported Past Surgical History: Appendectomy, Cholecystectomy, Hysterectomy, Joint Replacement, Tonsillectomy Additional Past Surgical History / Comment(s): jewel. knee replacements; colonoscopies, right shoulder replacement Past Anesthesia/Blood Transfusion Reactions: No Reported Reaction Past Psychological History: Anxiety Smoking Status: Former smoker Past Alcohol Use History: None Reported Past Drug Use History: None Reported - Past Family History Mother Family Medical History: No Reported History General Exam - General Exam Comments Initial Comments: PHYSICAL EXAM: General Impression: Alert and oriented x3, not in acute distress HEENT: Normocephalic atraumatic, extra-ocular movements intact, pupils equal and reactive to light bilaterally, mucous membranes moist. Cardiovascular: Heart regular rate and rhythm, S1&S2 audible, no murmurs, rubs or gallops Chest: Lungs clear to auscultation bilaterally, no rhonchi, no wheeze, no rales Abdomen: Bowel sounds present, abdomen soft, non-tender, non-distended, no organomegaly Musculoskeletal: Pulses present and equal in all extremities, no peripheral edema Motor: Power 5/5 bilaterally, no focal deficits noted Neurological: CN II-XII grossly intact, no focal motor or sensory deficits noted Skin: Intact with no visualized rashes Psych: Normal affect and mood Limitations: no limitations Course Vital Signs 02/10/18 06:57 Temperature 97.8 F Pulse Rate 82 Respiratory 21 Rate Blood Pressure 136/81 O2 Sat by Pulse 98 Oximetry Medical Decision Making - Medical Decision Making ED course: 87-year-old female presents with chief complaint of sore throat. Signs upon arrival are within acceptable limits.Physical examination is benign. Patient is afebrile. Vital signs are unremarkable. CBC, metabolic panel is unremarkable. Rapid strep is negative. Influenza test not obtained given that patient not showing clinical presentation consistent with influenza at this time. Patient given Xanax for anxiety. Patient clear for discharge told to follow up with primary care physician upon discharge. EKG Interpretation: A 12 lead EKG was obtained. It was interpreted by myself and attending physician. There is a P wave before every QRS complex. Rate is 79. Rhythm is sinus rhythm with first-degree AV block, NE interval 236, QRS 104, QTC 419. QT is not prolonged. No ST segment depression or elevation. Overall, this EKG is unremarkable - Lab Data Result diagrams: 02/10/18 07:45 02/10/18 07:45 Lab Results 02/10/18 02/10/18 02/10/18 Range/Units 07:45 07:45 07:45 WBC 6.8 (3.8-10.6) k/uL RBC 4.52 (3.80-5.40) m/uL Hgb 13.9 (11.4-16.0) gm/dL Hct 41.5 (34.0-46.0) % MCV 91.9 (80.0-100.0) fL MCH 30.8 (25.0-35.0) pg MCHC 33.5 (31.0-37.0) g/dL RDW 13.2 (11.5-15.5) % Plt Count 376 (150-450) k/uL Neutrophils % 69 % Lymphocytes % 15 % Monocytes % 10 % Eosinophils % 2 % Basophils % 1 % Neutrophils # 4.7 (1.3-7.7) k/uL Lymphocytes # 1.0 (1.0-4.8) k/uL Monocytes # 0.7 (0-1.0) k/uL Eosinophils # 0.2 (0-0.7) k/uL Basophils # 0.0 (0-0.2) k/uL Sodium 142 (137-145) mmol/L Potassium 4.3 (3.5-5.1) mmol/L Chloride 107 (98-107) mmol/L Carbon Dioxide 26 (22-30) mmol/L Anion Gap 9 mmol/L BUN 20 H (7-17) mg/dL Creatinine 0.70 (0.52-1.04) mg/dL Est GFR (CKD-EPI)AfAm >90 (>60 ml/min/1.73 sqM) Est GFR (CKD-EPI)NonAf 79 (>60 ml/min/1.73 sqM) Glucose 101 H (74-99) mg/dL Calcium 9.8 (8.4-10.2) mg/dL Magnesium 2.1 (1.6-2.3) mg/dL Group A Strep Rapid Negative (Negative) Disposition Clinical Impression: Pharyngitis Disposition: HOME SELF-CARE Condition: Good Instructions: Upper Respiratory Infection (ED) Is patient prescribed a controlled substance at d/c from ED?: No Referrals: Adonay Tomas MD [Primary Care Provider] - 1-2 days Time of Disposition: 09:04
--- NOTE | 2018-02-10 08:19 | XR ---
EXAMINATION TYPE: XR chest 2V DATE OF EXAM: 02/10/2018 COMPARISON: NONE HISTORY: Shortness of breath TECHNIQUE: Frontal and lateral views of the chest are obtained. FINDINGS: Scattered senescent parenchymal changes noted. Hyperinflation compatible with COPD. No evidence for infiltrate. No evidence for atelectasis. Heart size is stable. Mediastinal structures are stable and grossly unremarkable. No evidence for hilar prominence. Degenerative changes dorsal spine. IMPRESSION: 1. No evidence for acute pulmonary disease.
[2018-02-10 08:21] LABS: Basophils % (A) 1 %; Eosinophils # (A) 0.2 k/uL (0-0.7); Eosinophils % (A) 2 %; HCT 41.5 % (34.0-46.0); HGB 13.9 gm/dL (11.4-16.0); Lymphocytes % (A) 15 %; MCH 30.8 pg (25.0-35.0); MCHC 33.5 g/dL (31.0-37.0); MCV 91.9 fL (80.0-100.0); Mean Platelet Volume 6.6; Monocytes # (A) 0.7 k/uL (0-1.0); Monocytes % (A) 10 %; Neutrophils # (A) 4.7 k/uL (1.3-7.7); Neutrophils % (A) 69 %; Platelet Count 376 k/uL (150-450); RBC 4.52 m/uL (3.80-5.40); RDW 13.2 % (11.5-15.5); WBC 6.8 k/uL (3.8-10.6)
[2018-02-10 08:29] LABS: Anion Gap 9 mmol/L; Blood Urea Nitrogen 20 mg/dL (7-17); Calcium 9.8 mg/dL (8.4-10.2); Carbon Dioxide 26 mmol/L (22-30); Chloride 107 mmol/L (98-107); Glucose 101 mg/dL (74-99); Magnesium 2.1 mg/dL (1.6-2.3); Potassium 4.3 mmol/L (3.5-5.1); Sodium 142 mmol/L (137-145)
[2018-02-10] MEDS ORDERED: ALPRAZolam 0.5 MG TAB PO STA (08:46)
== END 2018-02-10 09:00 | disposition home or self-care (01) ==
LOC: EC 06:53
DX: J02.9 Acute pharyngitis, unspecified (principal); F41.9 Anxiety disorder, unspecified; I10 Essential (primary) hypertension; M19.90 Unspecified osteoarthritis, unspecified site; Z87.891 Personal history of nicotine dependence; Z85.828 Personal history of other malignant neoplasm of skin; Z96.653 Presence of artificial knee joint, bilateral; Z96.611 Presence of right artificial shoulder joint; Z79.899 Other long term (current) drug therapy; Z88.5 Allergy status to narcotic agent; Z88.0 Allergy status to penicillin
CPT/HCPCS: 36415; 71046; 80048; 83735; 85025; 87081; 87430; 99283

== ENCOUNTER 2018-03-08 08:31 | Emergency (ER) | payer MEDICARE, BC ==
[2018-03-08 08:37] VITALS: RESP 16
[2018-03-08] MEDS ORDERED: LORazepam 2 MG/ML INJ IM STA (08:49)
--- NOTE | 2018-03-08 09:00 | ED ---
General Adult HPI - General Chief complaint: Anxiety Stated complaint: not feeling well Source: patient, family Mode of arrival: wheelchair Limitations: no limitations - Related Data Home Medications Medication Instructions Recorded Confirmed Atenolol 25 mg PO BID 01/26/17 03/08/18 Lisinopril [Prinivil] 20 mg PO DAILY 01/26/17 03/08/18 Ascorbic Acid [Vitamin C] 500 mg PO DAILY 01/15/18 03/08/18 L.acidoph,Paracasei, B.lactis 1 cap PO DAILY 01/15/18 03/08/18 [Probiotic] ALPRAZolam [Xanax] 0.125 mg PO TID PRN 03/07/18 03/08/18 Cholecalciferol [Vitamin D3] 1,000 unit PO DAILY 03/07/18 03/08/18 Citalopram Hydrobromide 10 mg PO HS 03/07/18 03/08/18 [Citalopram HBr] Allergies Allergy/AdvReac Type Severity Reaction Status Date / Time codeine Allergy Rash/Hives Verified 03/08/18 09:06 Penicillins Allergy Rash/Hives Verified 03/08/18 09:06 Review of Systems ROS Statement: Those systems with pertinent positive or pertinent negative responses have been documented in the HPI. ROS Other: All systems not noted in ROS Statement are negative. Past Medical History Past Medical History: Cancer, Hypertension, Musculoskeletal Disorder, Osteoarthritis (OA) Additional Past Medical History / Comment(s): skin cancer, shingles 10/2017, chronic constipation History of Any Multi-Drug Resistant Organisms: None Reported Past Surgical History: Appendectomy, Cholecystectomy, Hysterectomy, Joint Replacement, Tonsillectomy Additional Past Surgical History / Comment(s): jewel. knee replacements; colonoscopies, right shoulder replacement Past Anesthesia/Blood Transfusion Reactions: No Reported Reaction Past Psychological History: Anxiety Smoking Status: Former smoker Past Alcohol Use History: None Reported Past Drug Use History: None Reported - Past Family History Mother Family Medical History: No Reported History General Exam Limitations: no limitations Course Vital Signs 03/08/18 08:34 Temperature 98.2 F Pulse Rate 89 Respiratory 16 Rate Blood Pressure 139/88 O2 Sat by Pulse 96 Oximetry Medical Decision Making - Medical Decision Making Dictation was produced using [employer] dictation software. please excuse any grammatical, word or spelling errors. Chief Complaint: 87-year-old female past medical history of cancer, hypertension, musculoskeletal disorder, osteoarthritis, anxiety presents with anxiety attack. History of Present Illness: Patient is a 87-year-old female. She is brought in by her for anxiety attack. Patient has presumed diagnosis of dementia. Patient has been managed outpatient for her anxiety. She takes and experienced when necessary anxiety. Patient's reports that she's been having these panic attacks that it worsened usual. This morning he gave her half of a 0.25 Xanax by mouth pill without any improvement of symptoms. Then later gave a full pill 1-2 hours later with still persistent symptoms. He is told to do so he brought patient to the emergency department. Patient is known to the emergency department for these similar episodes. She was seen yesterday by Dr. Hoffman. She was sent home with plan to follow up outpatient after receiving Ativan. Patient is a poor historian. He reports that this is patient's baseline. The ROS documented in this emergency department record has been reviewed and confirmed by me. Those systems with pertinent positive or negative responses have been documented in the HPI. All other systems are other negative and/or noncontributory. PHYSICAL EXAM: General Impression: Alert and oriented x3, anxious HEENT: Normocephalic atraumatic, extra-ocular movements intact, pupils equal and reactive to light bilaterally, mucous membranes moist. Cardiovascular: Heart regular rate and rhythm, S1&S2 audible, no murmurs, rubs or gallops Chest: Lungs clear to auscultation bilaterally, no rhonchi, no wheeze, no rales Abdomen: Bowel sounds present, abdomen soft, non-tender, non-distended, no organomegaly Musculoskeletal: Pulses present and equal in all extremities, no peripheral edema Motor: Power 5/5 bilaterally, no focal deficits noted Neurological: CN II-XII grossly intact, no focal motor or sensory deficits noted Skin: Intact with no visualized rashes Psych: Anxious, screaming ED course: 87-year-old female with past medical history of difficult to control anxiety presents with anxiety attack. Arrival are within acceptable limits. Patient screaming uncontrollably. is frustrated because he feels as though her outpatient anxiety medications aren't managing her anxiety symptoms. He believes that patient developed substernal intolerance to this medication. Patient denies any recent stressors. States that she's been having issues like this. However since yesterday her symptoms abated acutely worsening. Just completed a course of about a treatment. does not know what the medication was exactly. Labs and x-ray was obtained showing no acute processes. EPS was consult and recommendations was to follow up with Dr. Tomas for outpatient management of anxiety. He should reevaluated with improvement of symptoms. She feels well. Discussed patient case with Dr. Tomas. We will be sending patient to Dr. Tomas's officetoday. EKG interpretation: Ventricular rate 81, sinus rhythm, IA interval 236, care surgeon 104, QTC 425. No IA prolongation, no QTC prolongation, no ST or T-wave changes noted. EKG compared to 02/10/2018 showing no changes. Overall, this EKG is unremarkable - Lab Data Result diagrams: 03/08/18 09:10 03/08/18 09:10 Lab Results 03/08/18 03/08/18 03/08/18 Range/Units 09:10 09:10 12:14 WBC 6.6 (3.8-10.6) k/uL RBC 4.17 (3.80-5.40) m/uL Hgb 13.1 (11.4-16.0) gm/dL Hct 38.6 (34.0-46.0) % MCV 92.6 (80.0-100.0) fL MCH 31.4 (25.0-35.0) pg MCHC 33.9 (31.0-37.0) g/dL RDW 14.3 (11.5-15.5) % Plt Count 352 (150-450) k/uL Neutrophils % 69 % Lymphocytes % 18 % Monocytes % 8 % Eosinophils % 2 % Basophils % 1 % Neutrophils # 4.6 (1.3-7.7) k/uL Lymphocytes # 1.2 (1.0-4.8) k/uL Monocytes # 0.5 (0-1.0) k/uL Eosinophils # 0.1 (0-0.7) k/uL Basophils # 0.0 (0-0.2) k/uL Sodium 138 (137-145) mmol/L Potassium 4.4 (3.5-5.1) mmol/L Chloride 104 (98-107) mmol/L Carbon Dioxide 24 (22-30) mmol/L Anion Gap 10 mmol/L BUN 17 (7-17) mg/dL Creatinine 0.60 (0.52-1.04) mg/dL Est GFR (CKD-EPI)AfAm >90 (>60 ml/min/1.73 sqM) Est GFR (CKD-EPI)NonAf 83 (>60 ml/min/1.73 sqM) Glucose 106 H (74-99) mg/dL Calcium 9.8 (8.4-10.2) mg/dL Total Bilirubin 0.9 (0.2-1.3) mg/dL AST 23 (14-36) U/L ALT 31 (9-52) U/L Alkaline Phosphatase 53 (38-126) U/L Total Protein 7.2 (6.3-8.2) g/dL Albumin 4.2 (3.5-5.0) g/dL Urine Color Yellow Urine Appearance Clear (Clear) Urine pH 6.0 (5.0-8.0) Ur Specific [place] 1.016 (1.001-1.035) Urine Protein Negative (Negative) Urine Glucose (UA) Negative (Negative) Urine Ketones 1+ H (Negative) Urine Blood Negative (Negative) Urine Nitrite Negative (Negative) Urine Bilirubin Negative (Negative) Urine Urobilinogen <2.0 (<2.0) mg/dL Ur Leukocyte Esterase Negative (Negative) Disposition Clinical Impression: Acute anxiety Disposition: HOME SELF-CARE Instructions (If sedation given, give patient instructions): Generalized Anxiety Disorder (ED) Is patient prescribed a controlled substance at d/c from ED?: No Referrals: Adonay Tomas MD [Primary Care Provider] - 1-2 days Time of Disposition: 12:45
[2018-03-08 09:27] LABS: Basophils % (A) 1 %; Eosinophils # (A) 0.1 k/uL (0-0.7); Eosinophils % (A) 2 %; HCT 38.6 % (34.0-46.0); HGB 13.1 gm/dL (11.4-16.0); Lymphocytes # (A) 1.2 k/uL (1.0-4.8); Lymphocytes % (A) 18 %; MCH 31.4 pg (25.0-35.0); MCHC 33.9 g/dL (31.0-37.0); MCV 92.6 fL (80.0-100.0); Mean Platelet Volume 6.7; Monocytes # (A) 0.5 k/uL (0-1.0); Monocytes % (A) 8 %; Neutrophils # (A) 4.6 k/uL (1.3-7.7); Neutrophils % (A) 69 %; Platelet Count 352 k/uL (150-450); RBC 4.17 m/uL (3.80-5.40); RDW 14.3 % (11.5-15.5); WBC 6.6 k/uL (3.8-10.6)
[2018-03-08 09:34] LABS: ALT 31 U/L (9-52); AST 23 U/L (14-36); Albumin 4.2 g/dL (3.5-5.0); Alkaline Phosphatase 53 U/L (38-126); Anion Gap 10 mmol/L; Blood Urea Nitrogen 17 mg/dL (7-17); Calcium 9.8 mg/dL (8.4-10.2); Carbon Dioxide 24 mmol/L (22-30); Chloride 104 mmol/L (98-107); Glucose 106 mg/dL (74-99); Potassium 4.4 mmol/L (3.5-5.1); Sodium 138 mmol/L (137-145); Total Bilirubin 0.9 mg/dL (0.2-1.3); Total Protein 7.2 g/dL (6.3-8.2)
--- NOTE | 2018-03-08 10:02 | XR ---
EXAMINATION TYPE: XR chest 1V DATE OF EXAM: 03/08/2018 HISTORY: Shortness of breath. COMPARISON: 02/10/2018 TECHNIQUE: Single view of the chest is submitted. FINDINGS: Demonstrated are scattered senescent parenchymal change. There is no evidence for focal infiltrate. The heart is stable. Hilar and mediastinal structures are within normal limits. Degenerative changes are seen of the dorsal spine. IMPRESSION: 1. Chronic changes without evidence for acute pulmonary disease.
[2018-03-08 12:43] LABS: Appearance,Urine Clear (Clear); Bilirubin,Urine Negative (Negative); Blood,Urine Negative (Negative); Color,Urine Yellow; Glucose,Urine (UA) Negative (Negative); Ketones,Urine 1+ (Negative); Leukocyte Esterase,Urine Negative (Negative); Nitrite,Urine Negative (Negative); Protein,Urine Negative (Negative); Specific Gravity,Urine 1.016 (1.001-1.035); Urobilinogen,Urine <2.0 mg/dL (<2.0)
[2018-03-08 12:59] VITALS: BP 98/63; PULSE 77; TEMP 98.1
== END 2018-03-08 13:09 | disposition home or self-care (01) ==
LOC: EC 08:31
DX: F41.0 Panic disorder [episodic paroxysmal anxiety] (principal); I10 Essential (primary) hypertension; M19.90 Unspecified osteoarthritis, unspecified site; Z85.828 Personal history of other malignant neoplasm of skin; Z87.891 Personal history of nicotine dependence; Z79.899 Other long term (current) drug therapy; Z88.0 Allergy status to penicillin; Z88.5 Allergy status to narcotic agent; Z96.611 Presence of right artificial shoulder joint; Z96.653 Presence of artificial knee joint, bilateral
CPT/HCPCS: 36415; 93005; 80053; 85025; 81003; 71045; 99284; 96372; J2060

== ENCOUNTER 2018-04-04 10:50 | Emergency (ER) | payer MEDICARE, BC ==
[2018-04-04] MEDS ORDERED: LORazepam 2 MG/ML INJ IV STA (11:30)
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
[2018-04-04 12:01] LABS: Basophils % (A) 1 %; Eosinophils # (A) 0.1 k/uL (0-0.7); Eosinophils % (A) 2 %; HCT 41.5 % (34.0-46.0); HGB 13.7 gm/dL (11.4-16.0); Lymphocytes # (A) 0.8 k/uL (1.0-4.8); Lymphocytes % (A) 12 %; MCH 31.5 pg (25.0-35.0); MCHC 33.1 g/dL (31.0-37.0); MCV 95.4 fL (80.0-100.0); Monocytes # (A) 0.5 k/uL (0-1.0); Monocytes % (A) 8 %; Neutrophils # (A) 4.8 k/uL (1.3-7.7); Neutrophils % (A) 75 %; Platelet Count 378 k/uL (150-450); RBC 4.35 m/uL (3.80-5.40); RDW 14.4 % (11.5-15.5); WBC 6.4 k/uL (3.8-10.6)
[2018-04-04 12:07] LABS: Anion Gap 7 mmol/L; Blood Urea Nitrogen 13 mg/dL (7-17); Calcium 9.8 mg/dL (8.4-10.2); Carbon Dioxide 25 mmol/L (22-30); Chloride 107 mmol/L (98-107); Glucose 105 mg/dL (74-99); Magnesium 2.3 mg/dL (1.6-2.3); Potassium 4.4 mmol/L (3.5-5.1); Sodium 139 mmol/L (137-145)
[2018-04-04 14:12] LABS: Appearance,Urine Cloudy (Clear); Bilirubin,Urine Negative (Negative); Blood,Urine Negative (Negative); Color,Urine Light Yellow; Glucose,Urine (UA) Negative (Negative); Ketones,Urine Negative (Negative); Leukocyte Esterase,Urine Large (Negative); Mucus,Urine Occasional /hpf; Nitrite,Urine Negative (Negative); PH, Urine 5.5 (5.0-8.0); Protein,Urine Negative (Negative); Specific Gravity,Urine 1.011 (1.001-1.035); Squamous Epithelial Cell,Urine 6 /hpf (0-4); Urobilinogen,Urine <2.0 mg/dL (<2.0)
[2018-04-04 15:08] VITALS: BP 142/75; PULSE 77; RESP 18; TEMP 98.5
== END 2018-04-04 15:08 | disposition home or self-care (01) ==
LOC: EC 10:50
DX: F41.1 Generalized anxiety disorder (principal); N39.0 Urinary tract infection, site not specified; I10 Essential (primary) hypertension; M19.90 Unspecified osteoarthritis, unspecified site; Z85.828 Personal history of other malignant neoplasm of skin; Z87.891 Personal history of nicotine dependence; Z96.653 Presence of artificial knee joint, bilateral; Z96.611 Presence of right artificial shoulder joint; Z79.02 Long term (current) use of antithrombotics/antiplatelets; Z79.899 Other long term (current) drug therapy; Z88.5 Allergy status to narcotic agent; Z88.0 Allergy status to penicillin
CPT/HCPCS: 36415; 93005; 80048; 83735; 85025; 81001; 87086; 99284; 96374; J2060

== ENCOUNTER → 2018-05-14 | Outpatient (CLI) | payer MEDICARE, BC ==
--- NOTE | 2018-05-15 10:54 | ECHOF ---
Referral Reason:I31.3 Pericardial Effusion MEASUREMENTS -------- HEIGHT: 162.6 cm WEIGHT: 54.4 kg BP: IVSd: 1.2 cm (0.6 - 1.1) LVIDd: 2.0 cm (3.9 - 5.3) LVPWd: 1.2 cm (0.6 - 1.1) IVSs: 1.6 cm LVIDs: 1.4 cm LVPWs: 1.7 cm LAESV Index (A-L): 27.55 ml/m Ao Diam: 2.7 cm (2.0 - 3.7) AV Cusp: 1.8 cm (1.5 - 2.6) LA Diam: 3.0 cm (2.7 - 3.8) EPSS: 1.8 cm MV E Artemio: 0.82 m/s MV DecT: 215 ms MV A Artemio: 1.50 m/s MV E/A Ratio: 0.55 AR PHT: 278 ms RAP: 5.00 mmHg RVSP: 24.19 mmHg MV EF SLOPE: 21.30 mm/s (70 - 150) MV EXCURSION: 0.50 cm (> 18.000) FINDINGS -------- Sinus rhythm. This was a technically good study. The left ventricular size is normal. There is mild concentric left ventricular hypertrophy. Overa ll left ventricular systolic function is normal with, an EF between 55 - 60 %. The right ventricle is normal in size. Normal LA size by volume 22+/-6 ml/m2. The right atrial size is normal. Aortic valve is trileaflet and is mildly thickened. Trace amount of aortic regurgitation. The mitral valve leaflets are moderately thickened. Moderate mitral annular calcification present. Mild mitral regurgitation is present. The peak and mean MV gradients are 13.39mmHg 4.45mmHg as m easured by doppler. Mild tricuspid regurgitation present. The right ventricular systolic pressure, as measured by Doppl er, is 24.19mmHg. There is no pulmonic regurgitation present. The aortic root size is normal. Normal inferior vena cava with normal inspiratory collapse consistent with estimated right atrial pre ssure of 5 mmHg. There is no pericardial effusion. CONCLUSIONS -------- 1. Sinus rhythm. 2. This was a technically good study. 3. The left ventricular size is normal. 4. There is mild concentric left ventricular hypertrophy. 5. Overall left ventricular systolic function is normal with, an EF between 55 - 60 %. 6. The right ventricle is normal in size. 7. Normal LA size by volume 22+/-6 ml/m2. 8. The right atrial size is normal. 9. Aortic valve is trileaflet and is mildly thickened. 10. Trace amount of aortic regurgitation. 11. The mitral valve leaflets are moderately thickened. 12. Moderate mitral annular calcification present. 13. Mild mitral regurgitation is present. 14. The peak and mean MV gradients are 13.39mmHg 4.45mmHg as measured by doppler. 15. Mild tricuspid regurgitation present. 16. The right ventricular systolic pressure, as measured by Doppler, is 24.19mmHg. 17. There is no pulmonic regurgitation present. 18. The aortic root size is normal. 19. Normal inferior vena cava with normal inspiratory collapse consistent with estimated right atrial pressure of 5 mmHg. 20. There is no pericardial effusion. CLERK SPECIALIST: Lakeisha Kang RDCS
== END | disposition home or self-care (01) ==
LOC: RADECHMAIN 13:30
PROVIDERS: ATTEND Family Medicine
DX: I08.1 Rheumatic disorders of both mitral and tricuspid valves (principal)
CPT/HCPCS: 93306

== ENCOUNTER 2018-05-16 18:22 | Emergency (ER) | payer MEDICARE, BC ==
[2018-05-16 18:31] VITALS: TEMP 98.3
[2018-05-16] MEDS ORDERED: LORazepam 2 MG/ML INJ IV STA ×2 (19:02→21:49)
[2018-05-16] MEDS ORDERED: SODIUM CHLORIDE 0.9% 500 ML 500 ML IV STA (19:02)
[2018-05-16] MEDS ORDERED: KETOROLAC 30 MG/ML 1 ML VIAL IVP STA (19:03)
--- NOTE | 2018-05-16 19:37 | ED ---
General Adult HPI - General Chief complaint: Anxiety Stated complaint: Anxiety Time Seen by Provider: 05/16/18 18:42 Source: patient Mode of arrival: wheelchair Limitations: no limitations - History of Present Illness Initial comments: 87-year-old female patient with past medical history significant for dementia and anxiety, well-known to our department for frequent anxiety attacks presents to the emergency department today for evaluation of anxiety attack. states that she did complain of increased anxiety this morning. States he did give her Xanax however didn't seem to help. Patient then asked to take a ride, during the car ride she became increasingly more anxious and went back home. Patient has been having issues with left foot and leg pain. He did have a visiting nurse come in today who did a leg massage which did seem to help for a short time. Patient then started having increased anxiety once again, he did repeat dosing of the Xanax 4 times throughout the day which did seem to help her. States that he didn't know what to do so he brought her here for further evaluation. Patient is currently reporting left foot and leg pain. She denies any headache, blurred vision, double vision, chest pain, shortness of breath, n ausea, or vomiting. Denies any hematuria, dysuria, urinary frequency, urinary urgency. Patient denies any recent rash, fever, chills, abdominal pain, nausea, vomiting, diarrhea, constipation, back pain, numbness, tingling, dizziness, weakness, hematuria, dysuria, urinary urgency, urinary frequency, headache, visual changes, or any other complaints. - Related Data Home Medications Medication Instructions Recorded Confirmed Atenolol 25 mg PO BID 01/26/17 05/16/18 Lisinopril [Prinivil] 20 mg PO DAILY 01/26/17 05/16/18 LORazepam [Ativan] 0.5 mg PO TID 04/04/18 05/16/18 Melatonin 6 mg PO HS PRN 04/04/18 05/16/18 Allergies Allergy/AdvReac Type Severity Reaction Status Date / Time codeine Allergy Rash/Hives Verified 05/16/18 18:59 Penicillins Allergy Rash/Hives Verified 05/16/18 18:59 Review of Systems ROS Statement: Those systems with pertinent positive or pertinent negative responses have been documented in the HPI. ROS Other: All systems not noted in ROS Statement are negative. Past Medical History Past Medical History: Cancer, Hypertension, Musculoskeletal Disorder, Osteoarthritis (OA) Additional Past Medical History / Comment(s): skin cancer, shingles 10/2017, chronic constipation History of Any Multi-Drug Resistant Organisms: None Reported Past Surgical History: Appendectomy, Cholecystectomy, Hysterectomy, Joint Replacement, Tonsillectomy Additional Past Surgical History / Comment(s): jewel. knee replacements; colonoscopies, right shoulder replacement Past Anesthesia/Blood Transfusion Reactions: No Reported Reaction Past Psychological History: Anxiety Smoking Status: Former smoker Past Alcohol Use History: None Reported Past Drug Use History: None Reported - Past Family History Mother Family Medical History: No Reported History General Exam Limitations: no limitations General appearance: alert, in no apparent distress, other (Right leg is made when the medic this well-developed, well-nourished, anxious elderly female patient. Vital signs upon presentation are temperature 98.3F, pulse 98, respirations 18, blood pressure 134/75, pulse ox 98% on room air.) Eye exam: Present: normal appearance, PERRL, EOMI. Absent: scleral icterus, conjunctival injection, periorbital swelling ENT exam: Present: normal exam, normal oropharynx, mucous membranes moist Respiratory exam: Present: normal lung sounds bilaterally. Absent: respiratory distress, wheezes, rales, rhonchi, stridor Cardiovascular Exam: Present: regular rate, normal rhythm, normal heart sounds. Absent: systolic murmur, diastolic murmur, rubs, gallop, clicks GI/Abdominal exam: Present: soft, normal bowel sounds. 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 Skin to the left lower extremity is pink, warm, dry. Cap refills less than 3 seconds. No calf tenderness, swelling, erythema. Pedal and posttibial pulses 2+ and equal bilaterally.). Absent: tenderness, pedal edema, joint swelling, calf tenderness Neurological exam: Present: alert, oriented X3, CN II-XII intact Psychiatric exam: Present: normal affect, normal mood Skin exam: Present: warm, dry, intact, normal color. Absent: rash Course Vital Signs 05/16/18 05/16/18 05/16/18 18:28 20:42 23:19 Temperature 98.3 F Pulse Rate 98 86 75 Respiratory 18 14 14 Rate Blood Pressure 134/75 118/86 109/65 O2 Sat by Pulse 98 96 95 Oximetry Medical Decision Making - Medical Decision Making 87 year-old female patient is brought to the emergency department today for evaluation by for increased anxiety and left foot pain. 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 Patient is neurologically intact with no focal deficit. She does appear quite anxious upon reevaluation. We did perform labs which were unremarkable. EKG shows normal sinus rhythm. Patient was given medication in the emergency department. Upon reevaluation she does report improvement of symptoms. She is more calm. She'll be discharged home at this time to follow-up with her primary care physician for recheck. Return parameters were discussed in detail. He verbalizes understanding and agrees with this plan - Lab Data Result diagrams: 05/16/18 19:41 05/16/18 19:41 Lab Results 05/16/18 05/16/18 05/16/18 Range/Units 19:41 19:41 19:41 WBC 8.7 (3.8-10.6) k/uL RBC 4.22 (3.80-5.40) m/uL Hgb 13.1 (11.4-16.0) gm/dL Hct 38.2 (34.0-46.0) % MCV 90.7 (80.0-100.0) fL MCH 31.1 (25.0-35.0) pg MCHC 34.3 (31.0-37.0) g/dL RDW 13.9 (11.5-15.5) % Plt Count 353 (150-450) k/uL Neutrophils % 68 % Lymphocytes % 19 % Monocytes % 8 % Eosinophils % 2 % Basophils % 1 % Neutrophils # 6.0 (1.3-7.7) k/uL Lymphocytes # 1.7 (1.0-4.8) k/uL Monocytes # 0.7 (0-1.0) k/uL Eosinophils # 0.2 (0-0.7) k/uL Basophils # 0.0 (0-0.2) k/uL Sodium 139 (137-145) mmol/L Potassium 5.0 (3.5-5.1) mmol/L Chloride 107 (98-107) mmol/L Carbon Dioxide 26 (22-30) mmol/L Anion Gap 6 mmol/L BUN 22 H (7-17) mg/dL Creatinine 0.56 (0.52-1.04) mg/dL Est GFR (CKD-EPI)AfAm >90 (>60 ml/min/1.73 sqM) Est GFR (CKD-EPI)NonAf 85 (>60 ml/min/1.73 sqM) Glucose 104 H (74-99) mg/dL Calcium 9.5 (8.4-10.2) mg/dL Magnesium 2.2 (1.6-2.3) mg/dL Total Bilirubin 0.6 (0.2-1.3) mg/dL AST 30 (14-36) U/L ALT 25 (9-52) U/L Alkaline Phosphatase 42 (38-126) U/L Troponin I <0.012 (0.000-0.034) ng/mL Total Protein 6.8 (6.3-8.2) g/dL Albumin 4.0 (3.5-5.0) g/dL Urine Color Urine Appearance (Clear) Urine pH (5.0-8.0) Ur Specific [place] (1.001-1.035) Urine Protein (Negative) Urine Glucose (UA) (Negative) Urine Ketones (Negative) Urine Blood (Negative) Urine Nitrite (Negative) Urine Bilirubin (Negative) Urine Urobilinogen (<2.0) mg/dL Ur Leukocyte Esterase (Negative) Urine RBC (0-5) /hpf Urine WBC (0-5) /hpf Ur Squamous Epith Cells (0-4) /hpf Urine Mucus (None) /hpf 05/16/18 Range/Units 21:15 WBC (3.8-10.6) k/uL RBC (3.80-5.40) m/uL Hgb (11.4-16.0) gm/dL Hct (34.0-46.0) % MCV (80.0-100.0) fL MCH (25.0-35.0) pg MCHC (31.0-37.0) g/dL RDW (11.5-15.5) % Plt Count (150-450) k/uL Neutrophils % % Lymphocytes % % Monocytes % % Eosinophils % % Basophils % % Neutrophils # (1.3-7.7) k/uL Lymphocytes # (1.0-4.8) k/uL Monocytes # (0-1.0) k/uL Eosinophils # (0-0.7) k/uL Basophils # (0-0.2) k/uL Sodium (137-145) mmol/L Potassium (3.5-5.1) mmol/L Chloride (98-107) mmol/L Carbon Dioxide (22-30) mmol/L Anion Gap mmol/L BUN (7-17) mg/dL Creatinine (0.52-1.04) mg/dL Est GFR (CKD-EPI)AfAm (>60 ml/min/1.73 sqM) Est GFR (CKD-EPI)NonAf (>60 ml/min/1.73 sqM) Glucose (74-99) mg/dL Calcium (8.4-10.2) mg/dL Magnesium (1.6-2.3) mg/dL Total Bilirubin (0.2-1.3) mg/dL AST (14-36) U/L ALT (9-52) U/L Alkaline Phosphatase (38-126) U/L Troponin I (0.000-0.034) ng/mL Total Protein (6.3-8.2) g/dL Albumin (3.5-5.0) g/dL Urine Color Light Yellow Urine Appearance Clear (Clear) Urine pH 6.0 (5.0-8.0) Ur Specific [place] 1.014 (1.001-1.035) Urine Protein Negative (Negative) Urine Glucose (UA) Negative (Negative) Urine Ketones Negative (Negative) Urine Blood Negative (Negative) Urine Nitrite Negative (Negative) Urine Bilirubin Negative (Negative) Urine Urobilinogen <2.0 (<2.0) mg/dL Ur Leukocyte Esterase Moderate H (Negative) Urine RBC <1 (0-5) /hpf Urine WBC 13 H (0-5) /hpf Ur Squamous Epith Cells 1 (0-4) /hpf Urine Mucus Rare H (None) /hpf Disposition Clinical Impression: Anxiety, Left foot pain Disposition: HOME SELF-CARE Condition: Good Instructions (If sedation given, give patient instructions): Anxiety (ED), Leg Pain (ED) Additional Instructions: Follow-up with your primary care physician for recheck in 1-2 days. Return to the emergency department immediately for any new, worsening, or concerning symptoms. Is patient prescribed a controlled substance at d/c from ED?: No Referrals: Adonay Tomas MD [Primary Care Provider] - 1-2 days Time of Disposition: 21:36
[2018-05-16 20:00] LABS: Basophils % (A) 1 %; Eosinophils # (A) 0.2 k/uL (0-0.7); Eosinophils % (A) 2 %; HCT 38.2 % (34.0-46.0); HGB 13.1 gm/dL (11.4-16.0); Lymphocytes # (A) 1.7 k/uL (1.0-4.8); Lymphocytes % (A) 19 %; MCH 31.1 pg (25.0-35.0); MCHC 34.3 g/dL (31.0-37.0); MCV 90.7 fL (80.0-100.0); Mean Platelet Volume 6.9; Monocytes # (A) 0.7 k/uL (0-1.0); Monocytes % (A) 8 %; Neutrophils % (A) 68 %; Platelet Count 353 k/uL (150-450); RBC 4.22 m/uL (3.80-5.40); RDW 13.9 % (11.5-15.5); WBC 8.7 k/uL (3.8-10.6)
[2018-05-16 20:24] LABS: ALT 25 U/L (9-52); AST 30 U/L (14-36); Alkaline Phosphatase 42 U/L (38-126); Anion Gap 6 mmol/L; Blood Urea Nitrogen 22 mg/dL (7-17); Calcium 9.5 mg/dL (8.4-10.2); Carbon Dioxide 26 mmol/L (22-30); Chloride 107 mmol/L (98-107); Glucose 104 mg/dL (74-99); Magnesium 2.2 mg/dL (1.6-2.3); Sodium 139 mmol/L (137-145); Total Bilirubin 0.6 mg/dL (0.2-1.3); Total Protein 6.8 g/dL (6.3-8.2)
[2018-05-16 20:43] VITALS: RESP 14
[2018-05-16 21:30] LABS: Appearance,Urine Clear (Clear); Bilirubin,Urine Negative (Negative); Blood,Urine Negative (Negative); Color,Urine Light Yellow; Glucose,Urine (UA) Negative (Negative); Ketones,Urine Negative (Negative); Leukocyte Esterase,Urine Moderate (Negative); Mucus,Urine Rare /hpf; Nitrite,Urine Negative (Negative); Protein,Urine Negative (Negative); RBC,Urine <1 /hpf (0-5); Specific Gravity,Urine 1.014 (1.001-1.035); Squamous Epithelial Cell,Urine 1 /hpf (0-4); Urobilinogen,Urine <2.0 mg/dL (<2.0); WBC,Urine 13 /hpf (0-5)
[2018-05-16] MEDS ORDERED: MORPHINE SULFATE 2 MG/ML SYRINGE IVP STA (21:49)
[2018-05-16 23:20] VITALS: BP 109/65; PULSE 75
== END 2018-05-16 23:19 | disposition home or self-care (01) ==
LOC: EC 18:22
DX: F41.9 Anxiety disorder, unspecified (principal); M79.672 Pain in left foot; I44.0 Atrioventricular block, first degree; M21.542 Acquired clubfoot, left foot; M19.90 Unspecified osteoarthritis, unspecified site; I10 Essential (primary) hypertension; Z87.891 Personal history of nicotine dependence; Z79.899 Other long term (current) drug therapy; Z88.0 Allergy status to penicillin; Z88.5 Allergy status to narcotic agent; Z85.828 Personal history of other malignant neoplasm of skin; Z96.611 Presence of right artificial shoulder joint; Z96.653 Presence of artificial knee joint, bilateral
CPT/HCPCS: 99283; 96374; 96375 ×2; 96376; 36415; 93005; 80053; 83735; 84484; 85025; 81001; J2060; J1885; J2270

== ENCOUNTER → 2018-05-20 | Outpatient (CLI) | payer MEDICARE, BC ==
--- NOTE | 2018-05-20 11:17 | XR ---
EXAMINATION TYPE: XR Hip Bilateral and AP pelvis DATE OF EXAM: 05/20/2018 COMPARISON: CT abdomen pelvis 01/30/2018 HISTORY: Bilateral hip pain TECHNIQUE: A single AP view of the pelvis is obtained. Two views of the bilateral hips are obtained. FINDINGS: There is no acute fracture/dislocation evident in the pelvis. The hip and sacroiliac join ts appear symmetric and unremarkable. The overlying soft tissue appears unremarkable. Two views of bilateral hips show no acute fracture or dislocation. No focal lytic or sclerotic lesio n seen in the proximal bilateral femurs. The overlying soft tissue is unremarkable. Marginal spurri ng is present especially in the right hip, there is bilateral joint space loss. IMPRESSION: There is no acute fracture or dislocation in the pelvis or bilateral hips. Osteoarthriti s.
== END | disposition home or self-care (01) ==
LOC: RADXRMAIN 10:05
PROVIDERS: ATTEND Family Medicine
DX: M16.0 Bilateral primary osteoarthritis of hip (principal)
CPT/HCPCS: 73521

== ENCOUNTER 2018-06-17 09:52 | Inpatient (IN) | payer MEDICARE, BC ==
[2018-06-17] MEDS ORDERED: HYDROmorphone 0.5 MG/0.5 ML SYRINGE IVP STA (09:56)
[2018-06-17] MEDS ORDERED: ONDANSETRON 4 MG/2 ML VIAL IVP STA (09:56)
--- NOTE | 2018-06-17 09:59 | ED ---
Fall HPI - General Stated Complaint: fall, lt hip pain Time Seen by Provider: 06/17/18 09:53 Source: patient, EMS Limitations: no limitations - History of Present Illness Initial Comments: This an 87-year-old female presents emergency Department with chief complaint of fall, left hip pain. Patient had mechanical falls morning fell onto her left hip. Patient went of severe pain to her left hip she was given fentanyl by EMS which did help some of the discomfort. She denies any head injury no loss conscious. Patient states pain is fairly unbearable at this time. Denies any paresthesias. She states she's had orthopedic surgeries in the past but cannot remember the physician's name. Patient denies nausea and diarrhea constipation patient denies any chest pain shortness of breath. - Related Data Home Medications Medication Instructions Recorded Confirmed Atenolol 25 mg PO BID 01/26/17 05/16/18 Lisinopril [Prinivil] 20 mg PO DAILY 01/26/17 05/16/18 LORazepam [Ativan] 0.5 mg PO TID 04/04/18 05/16/18 Melatonin 6 mg PO HS PRN 04/04/18 05/16/18 Allergies Allergy/AdvReac Type Severity Reaction Status Date / Time codeine Allergy Rash/Hives Verified 05/16/18 18:59 Penicillins Allergy Rash/Hives Verified 05/16/18 18:59 Review of Systems ROS Statement: Those systems with pertinent positive or pertinent negative responses have been documented in the HPI. ROS Other: All systems not noted in ROS Statement are negative. Past Medical History Past Medical History: Cancer, Hypertension, Musculoskeletal Disorder, Osteoarthritis (OA) Additional Past Medical History / Comment(s): skin cancer, shingles 10/2017, chronic constipation History of Any Multi-Drug Resistant Organisms: None Reported Past Surgical History: Appendectomy, Cholecystectomy, Hysterectomy, Joint Replacement, Tonsillectomy Additional Past Surgical History / Comment(s): jewel. knee replacements; colonoscopies, right shoulder replacement Past Anesthesia/Blood Transfusion Reactions: No Reported Reaction Past Psychological History: Anxiety Smoking Status: Former smoker Past Alcohol Use History: None Reported Past Drug Use History: None Reported - Past Family History Mother Family Medical History: No Reported History General Exam General appearance: alert, in no apparent distress Head exam: Present: atraumatic, normocephalic, normal inspection Neck exam: Present: normal inspection, full ROM. Absent: tenderness, meningismus, lymphadenopathy Respiratory exam: Present: normal lung sounds bilaterally. Absent: respiratory distress, wheezes, rales, rhonchi, stridor Cardiovascular Exam: Present: regular rate, normal rhythm, normal heart sounds. Absent: systolic murmur, diastolic murmur, rubs, gallop, clicks Extremities exam: Present: other (Left hip there is tenderness of palpation, shortening rotation noted neurovascular intact) Neurological exam: Present: alert, oriented X3, CN II-XII intact, reflexes normal. Absent: motor sensory deficit Course Vital Signs 06/17/18 09:59 Temperature 98.1 F Pulse Rate 76 Respiratory 18 Rate Blood Pressure 159/104 O2 Sat by Pulse 95 Oximetry Medical Decision Making - Medical Decision Making 87 show female present for fall, hip pain. Patient has a left hip fracture will be admitted to orthopedics with consult to Dr. Tomas. Disposition Clinical Impression: Fall, Closed left hip fracture Disposition: ADMITTED IP TO THIS HOSP Condition: Fair Referrals: Adonay Tomas MD [Primary Care Provider] - 1-2 days
--- NOTE | 2018-06-17 10:27 | XR ---
EXAMINATION TYPE: XR Hip LT and AP Pelvis DATE OF EXAM: 06/17/2018 CLINICAL HISTORY: pain TECHNIQUE: AP and frogleg views of the left hip are obtained. COMPARISON: None. FINDINGS: There is left femoral neck fracture identified. Mild cranial migration of the distal fractu re component. Moderate to severe degenerative narrowing of the bilateral hip joint spaces. No additio nal fractures identified at this time. IMPRESSION: 1. Left femoral neck fracture as discussed.
[2018-06-17] MEDS ORDERED: HYDROmorphone 0.5 MG/0.5 ML SYRINGE IVP PRN ×2 (10:31→21:09)
[2018-06-17] MEDS ORDERED: ONDANSETRON 4 MG/2 ML VIAL IVP PRN (10:31)
[2018-06-17] MEDS ORDERED: NALOXONE 0.4 MG/ML 1 ML VIAL IV PRN (10:31)
--- NOTE | 2018-06-17 10:37 | XR ---
EXAMINATION TYPE: XR chest 1V DATE OF EXAM: 06/17/2018 HISTORY: Shortness of breath. COMPARISON: 03/08/2018 TECHNIQUE: Single view of the chest is submitted. FINDINGS: Demonstrated are scattered senescent parenchymal change. There is no evidence for focal infiltrate. The heart is stable. Hilar and mediastinal structures are within normal limits. Degenerative changes are seen of the dorsal spine. IMPRESSION: 1. Chronic changes without evidence for acute pulmonary disease.
[2018-06-17 11:07] LABS: Basophils % (A) 0 %; Eosinophils # (A) 0.1 k/uL (0-0.7); Eosinophils % (A) 1 %; HCT 39.3 % (34.0-46.0); HGB 13.2 gm/dL (11.4-16.0); Lymphocytes # (A) 0.7 k/uL (1.0-4.8); Lymphocytes % (A) 6 %; MCHC 33.5 g/dL (31.0-37.0); MCV 92.6 fL (80.0-100.0); Mean Platelet Volume 6.5; Monocytes # (A) 0.6 k/uL (0-1.0); Monocytes % (A) 5 %; Neutrophils # (A) 10.3 k/uL (1.3-7.7); Neutrophils % (A) 86 %; Platelet Count 351 k/uL (150-450); RBC 4.24 m/uL (3.80-5.40); RDW 13.1 % (11.5-15.5)
[2018-06-17 11:12] LABS: ALT 38 U/L (9-52); AST 51 U/L (14-36); Alkaline Phosphatase 51 U/L (38-126); Anion Gap 7 mmol/L; Blood Urea Nitrogen 16 mg/dL (7-17); Calcium 9.3 mg/dL (8.4-10.2); Carbon Dioxide 26 mmol/L (22-30); Chloride 107 mmol/L (98-107); Glucose 120 mg/dL (74-99); Potassium 4.5 mmol/L (3.5-5.1); Sodium 140 mmol/L (137-145); Total Bilirubin 0.7 mg/dL (0.2-1.3); Total Protein 6.7 g/dL (6.3-8.2)
[2018-06-17 11:13] LABS: Prothrombin Time 10.8 sec (9.0-12.0)
[2018-06-17 11:23] VITALS: BMI 22.1
[2018-06-17 11:31] LABS: Appearance,Urine Clear (Clear); Bilirubin,Urine Negative (Negative); Blood,Urine Negative (Negative); Color,Urine Yellow; Glucose,Urine (UA) Negative (Negative); Ketones,Urine Trace (Negative); Leukocyte Esterase,Urine Negative (Negative); Nitrite,Urine Negative (Negative); PH, Urine 5.5 (5.0-8.0); Protein,Urine Negative (Negative); Specific Gravity,Urine 1.019 (1.001-1.035); Urobilinogen,Urine <2.0 mg/dL (<2.0)
[2018-06-17] MEDS: HYDROmorphone 1 MG/ML 1 ML SYRINGE IVP PRN ×2 (12:22→14:23)
--- NOTE | 2018-06-17 12:51 | P.CONS ---
History of Present Illness - History of Present Illness 87-year-old female was brought to the emergency room with complaints of severe left hip pain. Patient had a trip and fall. Patient walks with Walker. Patient also has history of hypertension also problems with anxiety. Review of Systems Constitutional: Reports weakness Musculoskeletal: left: hip pain Neurological: Reports balance difficulties Psychiatric: Reports anxiety attacks Past Medical History Past Medical History: Cancer, Fibromyalgia, Hyperlipidemia, Hypertension, Memory Impairment, Osteoarthritis (OA) Additional Past Medical History / Comment(s): Murmur, skin cancer with removal, arthritis multiple joints, diverticular disease, UTIs, chronic constipation, shingelles 2018. History of Any Multi-Drug Resistant Organisms: None Reported Past Surgical History: Appendectomy, Cholecystectomy, Hysterectomy, Joint Replacement, Orthopedic Surgery, Tonsillectomy Additional Past Surgical History / Comment(s): jewel. knee replacements, right shoulder replacement, bunion removed L foot, L hand tendon repair, EGD, colonoscopies, D&C, skin cancer removal R eyebrow. Past Anesthesia/Blood Transfusion Reactions: No Reported Reaction Additional Past Anesthesia/Blood Transfusion Reaction / Comm: Pt states she has received blood in past without reaction. Smoking Status: Former smoker - Past Family History Mother Family Medical History: No Reported History Additional Family Medical History / Comment(s): Mother was healthy and lived to be 83 yrs old. Father Family Medical History: Myocardial Infarction (PA) Additional Family Medical History / Comment(s): Father of a PA. Medications and Allergies Home Medications Medication Instructions Recorded Confirmed Type Atenolol 25 mg PO BID 01/26/17 06/17/18 History Lisinopril [Prinivil] 20 mg PO DAILY 01/26/17 06/17/18 History LORazepam [Ativan] 0.5 mg PO QID 04/04/18 06/17/18 History Citalopram Hydrobromide [CeleXA] 10 mg PO DAILY 06/17/18 06/17/18 History traZODone HCL 50 mg PO HS 06/17/18 06/17/18 History Allergies Allergy/AdvReac Type Severity Reaction Status Date / Time codeine Allergy Rash/Hives Verified 05/16/18 18:59 Penicillins Allergy Rash/Hives Verified 05/16/18 18:59 Physical Exam Vitals: Vital Signs Temp Pulse Pulse Resp BP BP Pulse Ox 06/17/18 11:57 97.8 F 74 129/90 92 L 06/17/18 11:40 72 19 136/70 97 06/17/18 09:59 98.1 F 76 18 159/104 95 Intake and Output 06/16/18 06/17/18 06/17/18 22:59 06:59 14:59 Other: Weight 58.468 kg - Constitutional General appearance: mild distress - EENT Eyes: PERRLA Ears: bilateral: normal - Neck Neck: normal ROM - Respiratory Respiratory: bilateral: CTA - Cardiovascular Rhythm: regular - Gastrointestinal General gastrointestinal: soft - Integumentary Integumentary: normal - Neurologic Neurologic: CNII-XII intact - Musculoskeletal left hip pain - Psychiatric patient tearful and anxious Psychiatric: A&O x's 3 Results CBC & Chem 7: 06/17/18 10:55 06/17/18 10:55 Labs: Abnormal Lab Results - Last 24 Hours (Table) 06/17/18 06/17/18 06/17/18 Range/Units 10:55 10:55 11:00 WBC 12.0 H (3.8-10.6) k/uL Neutrophils # 10.3 H (1.3-7.7) k/uL Lymphocytes # 0.7 L (1.0-4.8) k/uL Glucose 120 H (74-99) mg/dL AST 51 H (14-36) U/L Urine Ketones Trace H (Negative) Chest x-ray: report reviewed (Left hip fracture) Assessment and Plan Plan: Assessment left hip fracture history of hypertension osteoarthritis anxiety disorder memory impairment Plan will monitor patient condition will discuss clearance with Dr. Tomas
--- NOTE | 2018-06-17 13:44 | P.PN ---
Progress Note - Text discussed case with Dr Tomas cleared for surgery
--- NOTE | 2018-06-17 15:02 | P.HPOR ---
History of Present Illness H&P Date: 06/17/18 This patient is an 87-year-old female with a past medical history of hypertension, bilateral knee replacements by Dr. Lawrence, and severe anxiety that presented to [facility] today following a ground-level fall in the home. The patient's states that he was making bread in the home, and he walked out to the garage when the patient attempted to get the bread out of the open when she fell in the kitchen. The patient's fall was unwitnessed, her walked into the home and found her laying on the floor. He states that he called an ambulance immediately. On arrival to [facility], she was found to have a left femoral neck fracture. Patient was admitted under the care of Dr. Luna with a consult placed to internal medicine. At the time examination, the patient is lying in bed. The patient provides no history, all history is obtained from the patient's . The patient's hu sband states that she has severe anxiety and is starting to show signs of dementia. He states that she walks with a 4 wheeled walker in the home at baseline. He states that she is very unstable when walking on her own, and that she needs assistance with walking at all times. The patient and her denies additional complaints at this time. Patient follows with Dr. Tomas on an outpatient basis. Past Medical History Past Medical History: Cancer, Fibromyalgia, Hyperlipidemia, Hypertension, Memory Impairment, Osteoarthritis (OA) Additional Past Medical History / Comment(s): Murmur, skin cancer with removal, arthritis multiple joints, diverticular disease, UTIs, chronic constipation, shingelles 2018. History of Any Multi-Drug Resistant Organisms: None Reported Past Surgical History: Appendectomy, Cholecystectomy, Hysterectomy, Joint Replacement, Orthopedic Surgery, Tonsillectomy Additional Past Surgical History / Comment(s): jewel. knee replacements, right shoulder replacement, bunion removed L foot, L hand tendon repair, EGD, colonoscopies, D&C, skin cancer removal R eyebrow. Past Anesthesia/Blood Transfusion Reactions: No Reported Reaction Additional Past Anesthesia/Blood Transfusion Reaction / Comment(s): Pt states she has received blood in past without reaction. Smoking Status: Former smoker - Past Family History Mother Family Medical History: No Reported History Additional Family Medical History / Comment(s): Mother was healthy and lived to be 83 yrs old. Father Family Medical History: Myocardial Infarction ([place]) Additional Family Medical History / Comment(s): Father of a [place]. Medications and Allergies Home Medications Medication Instructions Recorded Confirmed Type Atenolol 25 mg PO BID 01/26/17 06/17/18 History Lisinopril [Prinivil] 20 mg PO DAILY 01/26/17 06/17/18 History LORazepam [Ativan] 0.5 mg PO QID 04/04/18 06/17/18 History Citalopram Hydrobromide [CeleXA] 10 mg PO DAILY 06/17/18 06/17/18 History traZODone HCL 50 mg PO HS 06/17/18 06/17/18 History Allergies Allergy/AdvReac Type Severity Reaction Status Date / Time codeine Allergy Rash/Hives Verified 05/16/18 18:59 Penicillins Allergy Rash/Hives Verified 05/16/18 18:59 Physical Examination On examination, the patient is lying in bed in no apparent distress. Her is bedside. Head is atraumatic and normocephalic. Breathing appears non- labored. On inspection of the left lower extremity, there is a small area of ecchymosis the posterior hip. This area is tender to palpation. No open wounds or lacerations. Neurovascular is intact of the left lower extremity. The foot is warm and well-perfused with brisk capillary refill of the toes. On inspection of the left ankle, there is fixed equinovarus. No pain on palpation of the left ankle. No pain on palpation of the left knee. Results Hip/pelvis x-ray 06/17/18: Displaced subcapital femoral neck fracture, left - Labs Labs: Abnormal Lab Results - Last 24 Hours (Table) 06/17/18 06/17/18 06/17/18 Range/Units 10:55 10:55 11:00 WBC 12.0 H (3.8-10.6) k/uL Neutrophils # 10.3 H (1.3-7.7) k/uL Lymphocytes # 0.7 L (1.0-4.8) k/uL Glucose 120 H (74-99) mg/dL AST 51 H (14-36) U/L Urine Ketones Trace H (Negative) H & H 06/17/18 Range/Units 10:55 Hgb 13.2 (11.4-16.0) gm/dL Hct 39.3 (34.0-46.0) % Coagulation 06/17/18 Range/Units 10:55 INR 1.0 (<1.2) Result Diagrams: 06/17/18 10:55 06/17/18 10:55 Assessment and Plan Assessment: Displaced subcapital femoral neck fracture, left Fixed equinovarus, left ankle Plan: -We will plan for a left hip hemiarthroplasty this afternoon with Dr. Luna, pending consent. Patient has been cleared for surgery by internal medicine. -Strict non-weightbearing on left lower extremity. - Continue current pain management. - NPO diet. - Vitamin D 25-hydroxy level pending. Patient discussed with Dr. Luna.
[2018-06-17] MEDS ORDERED: LACTATED RINGERS 1,000 ML IV ONE ×3 (16:45→19:32)
[2018-06-17] MEDS ORDERED: CLINDAMYCIN 900 MG in DEXTROSE 5% IN WATER 50 ML IVPB STA ×2 (17:34)
[2018-06-17] MEDS ORDERED: PHENYLEPHRINE-0.9% NACL SYG 1 MG/10 ML SYRINGE ONE (18:45)
[2018-06-17] MEDS ORDERED: MIDAZOLAM 2 MG/2 ML VIAL ONE (18:45)
[2018-06-17] MEDS ORDERED: fentaNYL (PF) 50 MCG/ML 2 ML AMP ONE (18:45)
[2018-06-17] MEDS ORDERED: KETAMINE 10 MG/ML 20 ML VIAL ONE (18:45)
[2018-06-17] MEDS ORDERED: CLINDAMYCIN 600 MG in SODIUM CHLORIDE 0.9% 1,000 ML IRRIGATION ONE (19:14)
[2018-06-17] MEDS ORDERED: IV FLUID CONTINUATION 1,000 ML IV ONE ×2 (21:12)
--- NOTE | 2018-06-17 21:25 | P.OP ---
Date of Procedure: 06/17/18 Preoperative Diagnosis: 1. Displaced left subcapital femoral neck fracture 2. History of multiple frequent falls 3. Osteoporosis 4. Prior bilateral total knee replacements Postoperative Diagnosis: Same Procedure(s) Performed: Left hip hemiarthroplasty Implants: Ju cemented LD/FX size 12 stem, 45 mm head, +7 mm neck Anesthesia: spinal Surgeon: Juan Carlos Luna Court Administrator #1: Margaux Cardona Estimated Blood Loss (ml): 100 IV fluids (ml): 750 Pathology: other (Femoral head to pathology) Condition: stable Disposition: PACU Indications for Procedure: The patient is very pleasant 87 year old female with is relatively healthy but has an unsteady gait and sustained multiple recent falls. At her baseline she ambulates with a walker and assistance of her . Earlier today her was getting something out of the oven when the patient got up unassisted and fell. When her returned is on the ground and unable to get up. She was brought by EMS to the emergency department where x-rays showed a displaced femoral neck fracture. The patient was admitted under my care and internal medicine was consulted for clearance. The patient was cleared for surgery and I met with the patient and her preoperatively discuss treatment options. Our recommendation was to perform a cemented hemiarthroplasty. We discussed the potential risks and competitions of surgery including but not limited to risk of anesthesia, superficial infection, deep infection, delayed wound healing, damage to blood vessels or nerves, intraoperative fracture, postoperative fracture, hip dislocation, difficulty ambulating, and inability to ambulate, need for further surgery, DVT, PE, other medical complications and possibly . The patient and her understand these potential competitions and provided consent to go forward with surgery. Description of Procedure: The patient was identified in preoperative holding and the correct left leg was marked with my initials. I reviewed the consent form with the patient and her . All their questions were answered. The patient was then brought back to the operating room by anesthesia. She was positioned on the gurney and a spinal anesthetic was administered. The patient was then carefully transferred onto the OR table. She was positioned in the lateral decubitus position with the affected left side up. She was secured to the or table with a Montral frame. An axillary roll was placed. All bony prominences were padded. The left leg was then prepped and draped in the standard sterile fashion. Prior to starting surgery timeout was performed identifying the correct patient, operative extremity, and procedure. I began by outlining an incision for a posterolateral approach to the hip. Skin incision was made with a scalpel. Dissection was carried down carefully through subcu tissue and tissue with electrocautery. The IT band was identified and incised in line with the skin incision distally. Proximally at the tip of the greater trochanter the fibers of the gluteus veronica were bluntly spread. A Charnley retractor was placed. Remnants of the trochanteric bursa were elevated off the posterior aspect of the femur. The piriformis tendon was identified and a medium Orozco elevator was used to develop the interval between the short external rotators and hip capsule. The short external rotators and piriformis were then elevated off the posterior cortex of the femur and greater trochanter with electrocautery. Retractors were placed in the posterior hip capsule was teed. A subcapital femoral neck fracture was immediately identified. A neck cut was templated and then made 1 thumb breadth above the lesser trochanter. The femoral head was then removed and passed off to the back table where it was sized and then sent to pathology. A box osteotome was used to gain entrance to the canal taking care to stay lateral and place in appropriate version. A canal finder was then used. A lateralizing reamer was then used area and I sequentially broached in 1 mm increments. A 12 mm broach felt stable. A calcar planar was used to bring the neck cut down to the level of the broach. A standard offset neck and 45 mm head were trialed. The hip very easily reduced and dislocated. I went up to a +7 neck which felt stable in all planes of motion. The hip was gently dislocated. A cement restrictor was placed distally. A wet sponge was placed in the acetabulum. The proximal canal was irrigated. Cement was mixed and then pressurized into the canal. A size 12 mm stem was then gently tapped into place taking care to match the patient's [place] version. All excess cement was removed and the cement was allowed to harden. Once the cement had set the sponge was removed from the acetabulum and all excess cement was removed. I again trialed with a 45 mm +7 mm head which felt stable. The wound was thoroughly irrigated. A clean sponge was used to repair the trunnion and the final 45 mm head was gently tapped into place. Hip was carefully reduced and again taken through range of motion and felt to be stable. A final thorough irrigation of the deep wound was performed. The capsule was meticulously repaired using 0 Vicryl. The piriformis and short external rotators were repaired with #2 Ethibond, modified Douglas-Saqib stitches to grab the tendon and soft tissue and passed through bone tunnels on the proximal femur. The IT band was reapproximated with 0 Vicryl and then closed with a running Quill stitch. The deep subcu was reapproximated using 2-0 Vicryl. The skin was closed with a running subcuticular stitch and Dermabond. A sterile dressing was applied. The drapes were taken down. A hip abduction pillow was placed. Montral frame was loosened and the patient was carefully transferred back onto a gurney and brought to recovery and procedure well. In the recovery room postoperative x-rays of the hip showed a stable cemented implant located within the acetabulum. Margaux Kown PA-C was required as a skilled ice cream freezer assistant for patient positioning, surgical exposure, retraction, placement of hardware, closure of wounds, and application of dressing. Plan: The patient can weight-bear as tolerated with posterior hip precautions on the left. She is to have her hip abduction pillow in place at all times while in bed. She doesn't tolerate an abduction pillow she can use a knee immobilizer. She'll receive 2 doses of postoperative antibiotics. She'll receive Lovenox 40 mg daily 4 weeks for DVT prophylaxis. Appreciate internal medicine's ice cream freezer assistant with perioperative medical management.
--- NOTE | 2018-06-17 21:28 | XR ---
EXAMINATION TYPE: XR Hip Limited LT DATE OF EXAM: 06/17/2018 COMPARISON: NONE HISTORY: Postop hip surgery TECHNIQUE: Single view FINDINGS: There is a new left hip prosthesis. Components are in anatomic position. IMPRESSION: No complicating process seen.
[2018-06-17] MEDS: ATENOLOL 25 MG TAB PO SCH (22:25)
[2018-06-17] MEDS: LACTATED RINGERS 1,000 ML IV SCH (22:26)
[2018-06-18] MEDS: HYDROcodone/APAP 5-325MG 1 EACH TAB PO PRN ×3 (04:52→21:54)
[2018-06-18] MEDS: CLINDAMYCIN 900 MG in DEXTROSE 5% IN WATER 50 ML IVPB SCH ×4 (04:53→10:02)
[2018-06-18] MEDS: LACTATED RINGERS 1,000 ML IV SCH ×2 (04:55→17:21)
[2018-06-18] MEDS: HYDROmorphone 0.5 MG/0.5 ML SYRINGE IVP PRN (05:03)
[2018-06-18 08:57] LABS: Basophils % (A) 0 %; Eosinophils % (A) 0 %; HCT 35.1 % (34.0-46.0); HGB 11.3 gm/dL (11.4-16.0); Lymphocytes # (A) 0.8 k/uL (1.0-4.8); Lymphocytes % (A) 6 %; MCH 30.2 pg (25.0-35.0); MCHC 32.2 g/dL (31.0-37.0); MCV 93.6 fL (80.0-100.0); Mean Platelet Volume 6.9; Monocytes % (A) 8 %; Neutrophils # (A) 11.1 k/uL (1.3-7.7); Neutrophils % (A) 84 %; Platelet Count 291 k/uL (150-450); RBC 3.75 m/uL (3.80-5.40); RDW 14.2 % (11.5-15.5); WBC 13.1 k/uL (3.8-10.6)
[2018-06-18] MEDS: CITALOPRAM HYDROBROMIDE 10 MG TAB PO SCH ×2 (10:03→10:05)
[2018-06-18] MEDS: ENOXAPARIN 40 MG/0.4 ML SYRINGE SQ SCH (10:04)
[2018-06-18] MEDS: ATENOLOL 25 MG TAB PO SCH ×2 (10:05→20:16)
[2018-06-18] MEDS: LISINOPRIL 20 MG TAB PO SCH (10:05)
[2018-06-18] MEDS: LORazepam 0.5 MG TAB PO SCH ×3 (10:11→20:16)
--- NOTE | 2018-06-18 11:44 | P.PN ---
Subjective Has been periods of of anxiety. Home medications reordered Ativan. Patient is post left corina-arthroplasty CBC reviewed expected blood loss. Had discussion with considering transfer to [facility] for rehab Objective - Vital Signs Vital signs: Vital Signs Temp 100.1 F H 06/18/18 07:22 Pulse 75 06/18/18 08:35 Resp 18 06/18/18 08:35 BP 152/67 06/18/18 08:35 Pulse Ox 95 06/18/18 08:35 Intake & Output 06/17/18 06/18/18 06/18/18 18:59 06:59 18:59 Intake Total 400 1051 Output Total 400 800 Balance 0 251 Weight 58.468 kg Intake: IV 400 1051 Output: Urine 300 800 Estimated Blood Loss 100 Other: Voiding Method Indwelling Catheter Indwelling Catheter - Constitutional General appearance: Present: mild distress - EENT Eyes: Present: PERRLA Ears: bilateral: normal - Neck Neck: Present: normal ROM - Respiratory Respiratory: bilateral: CTA - Cardiovascular Rhythm: regular - Gastrointestinal General gastrointestinal: Present: soft - Neurologic Neurologic: Present: CNII-XII intact - Musculoskeletal Musculoskeletal: Present: generalized weakness - Psychiatric Psychiatric Comment(s): Patient pleasantly confused and at times has anxiety outbursts - Labs CBC & Chem 7: 06/18/18 08:14 06/17/18 10:55 Labs: Abnormal Lab Results - Last 24 Hours (Table) 06/17/18 06/18/18 Range/Units 10:55 08:14 WBC 13.1 H (3.8-10.6) k/uL RBC 3.75 L (3.80-5.40) m/uL Hgb 11.3 L (11.4-16.0) gm/dL Neutrophils # 11.1 H (1.3-7.7) k/uL Lymphocytes # 0.8 L (1.0-4.8) k/uL Vitamin D 25-Hydroxy 29.3 L (30.0-100.0) ng/mL - Imaging and Cardiology Report regarding postoperative hip Assessment and Plan Plan: Assessment Left displaced subcapital hip fracture Post hemiarthroplasty History of hypertension Osteoarthritis Anxiety disorder Memory impairment Plan Will monitor of changes in postop condition We'll call transferred to extended care facility for rehab has been suggested [facility]
--- NOTE | 2018-06-18 13:18 | P.PN ---
Subjective Progress Note Date: 06/18/18 This patient is an 87-year-old female with a past medical history of hypertension, closed head injury, bilateral knee replacements by Dr. Lawrence, and severe anxiety that presented to [facility] today following a ground-level fall in the home. The patient's states that he was making bread in the home, and he walked out to the garage when the patient attempted to get the bread out of the open when she fell in the kitchen. The patient's fall was unwitnessed, her walked into the home and found her laying on the floor. He states that he called an ambulance immediately. On arrival to [facility], she was found to have a left femoral neck fracture. Patient was admitted under the care of Andrew Luna with a consult placed to internal medicine. Patient was cleared for surgery by internal medicine and underwent a left hip hemiarthroplasty by Dr. Luna on 06/17/18. Today is post-operative day #1. The patient states she is doing well this morning. She denies significant pain in the left hip. She denies additional complaints this morning. Vital signs stable. Objective - Vital Signs Vital signs: Vital Signs Temp 100.1 F H 06/18/18 07:22 Pulse 73 06/18/18 07:22 Resp 16 06/18/18 07:22 BP 91/48 06/18/18 07:22 Pulse Ox 96 06/18/18 07:22 Intake & Output 06/17/18 06/18/18 06/18/18 18:59 06:59 18:59 Intake Total 400 1051 Output Total 400 800 Balance 0 251 Weight 58.468 kg Intake: IV 400 1051 Output: Urine 300 800 Estimated Blood Loss 100 Other: Voiding Method Indwelling Catheter Indwelling Catheter - Exam On examination, the patient is sitting up in bed in no acute distress. On inspection of the left hip, there is a surgical dressing in place on the lateral hip. The dressing is clean, dry, intact. There is no blood or drainage present on the dressing. The left lower extremity is warm and well-perfused with brisk capillary refill. Brisk capillary refill of the toes. Sensation is intact to light touch of the left lower extremity. Neurovascular is intact of the left lower extremity. Calves are soft and non-tender bilaterally. - Labs CBC & Chem 7: 06/18/18 08:14 06/17/18 10:55 Labs: Abnormal Lab Results - Last 24 Hours (Table) 06/17/18 06/17/18 06/17/18 Range/Units 10:55 10:55 11:00 WBC 12.0 H (3.8-10.6) k/uL Neutrophils # 10.3 H (1.3-7.7) k/uL Lymphocytes # 0.7 L (1.0-4.8) k/uL Glucose 120 H (74-99) mg/dL AST 51 H (14-36) U/L Urine Ketones Trace H (Negative) Assessment and Plan Assessment: Displaced subcapital femoral neck fracture, s/p left hip hemiarthroplasty. Postoperative day #1. Fixed equinovarus, left ankle Plan: -Weight bearing as tolerated on the left lower extremity. Up with assistance, up with a walker. - Apply abduction pillow at all times. Continue posterior hip precautions. - Physical therapy for gait and balance training. - Lovenox for DVT prophylaxis. - 2 doses of post-operative antibiotics complete. - Continue current pain management. - Appreciate internal medicine consult for medical management. - Anticipate discharge to rehab facility. Patient discussed with Dr. Luna.
[2018-06-18] MEDS: SENNOSIDES-DOCUSATE SODIUM 1 EACH TAB PO SCH (20:16)
[2018-06-19] MEDS: LACTATED RINGERS 1,000 ML IV SCH ×2 (03:41→12:55)
[2018-06-19] MEDS: LORazepam 0.5 MG TAB PO SCH ×4 (04:40→21:35)
[2018-06-19] MEDS: HYDROcodone/APAP 5-325MG 1 EACH TAB PO PRN ×2 (05:11→10:56)
[2018-06-19] MEDS: ENOXAPARIN 40 MG/0.4 ML SYRINGE SQ SCH (08:25)
[2018-06-19] MEDS: LISINOPRIL 20 MG TAB PO SCH (08:25)
[2018-06-19] MEDS: ATENOLOL 25 MG TAB PO SCH ×2 (08:25→21:35)
--- NOTE | 2018-06-19 10:19 | P.PN ---
Subjective Progress Note Date: 06/19/18 This patient is an 87-year-old female with a past medical history of hypertension, closed head injury, bilateral knee replacements by Dr. Lawrence, and severe anxiety that presented to [facility] today following a ground-level fall in the home. The patient's states that he was making bread in the home, and he walked out to the garage when the patient attempted to get the bread out of the open when she fell in the kitchen. The patient's fall was unwitnessed, her walked into the home and found her laying on the floor. He states that he called an ambulance immediately. On arrival to [facility], she was found to have a left femoral neck fracture. Patient was admitted under the care of Andrew Luna with a consult placed to internal medicine. Patient was cleared for surgery by internal medicine and underwent a left hip hemiarthroplasty by Dr. Luna on 06/17/18. Today is post-operative day #2. The patient states she is doing well, she has been up with therapy already today. She denies significant pain in the hip. She states she tolerated breakfast well. She denies chest pain, shortness of breath, nausea, vomiting. She denies any new complaints today. Vital signs stable. Objective - Vital Signs Vital signs: Vital Signs Temp 98.4 F 06/19/18 03:00 Pulse 78 06/19/18 01:00 Resp 16 06/19/18 08:15 BP 104/64 06/19/18 01:00 Pulse Ox 92 L 06/19/18 01:00 Intake & Output 06/18/18 06/19/18 06/19/18 18:59 06:59 18:59 Intake Total 1100 Output Total 600 Balance 500 Intake: Intake, IV Titration 1100 Amount Lactated Ringers 1,000 ml 1100 @ 100 mls/hr IV .Q10H KAY Rx#:[id number] Output: Urine 600 Other: Voiding Method Indwelling Catheter Indwelling Catheter Indwelling Catheter # Voids 1 # Bowel Movements 0 - Exam On examination, the patient is sitting up in the chair in no acute distress. is bedside. On inspection of the left hip, there is a surgical dressing in place on the lateral hip. The dressing is clean, dry, intact. There is no blood or drainage present on the dressing. Incision shows well-approximated skin edges, no surrounding erythema, warmth, drainage, or fluctuance. There are no signs of infection. The left lower extremity is warm and well-perfused with brisk capillary refill. Dorsalis pedis pulse palpable. Sensation is intact to light touch of the left lower extremity. Neurovascular is intact of the left lower extremity. Calves are soft and non-tender bilaterally. - Labs CBC & Chem 7: 06/18/18 08:14 06/17/18 10:55 Labs: Abnormal Lab Results - Last 24 Hours (Table) 06/17/18 Range/Units 10:55 Vitamin D 25-Hydroxy 29.3 L (30.0-100.0) ng/mL - Imaging and Cardiology Left hip x-ray 06/17/18: stable cemented implant located within the acetabulum. Assessment and Plan Assessment: Displaced subcapital femoral neck fracture, s/p left hip hemiarthroplasty. Postoperative day #2. Fixed equinovarus, left ankle Plan: -Weight bearing as tolerated on the left lower extremity. Up with assistance, up with a walker. - Apply abduction pillow at all times while in bed. Continue posterior hip precautions. - Physical therapy for gait and balance training. - Lovenox for DVT prophylaxis. - 2 doses of post-operative antibiotics complete. - Continue current pain management. - Appreciate internal medicine consult for medical management. - Anticipate discharge to rehab facility within next 24-48 hours. Patient discussed with Dr. Luna.
--- NOTE | 2018-06-19 10:52 | P.PN ---
Subjective Noted low-grade fever at night 100.1. CBC UA and chest x-ray ordered. Patient sitting in chair at bedside appears comfortable. Hopeful discharge tomorrow to [facility] Objective - Vital Signs Vital signs: Vital Signs Temp 100.0 F H 06/19/18 09:46 Pulse 80 06/19/18 09:46 Resp 16 06/19/18 09:46 BP 104/66 06/19/18 09:46 Pulse Ox 94 L 06/19/18 09:46 Intake & Output 06/18/18 06/19/18 06/19/18 18:59 06:59 18:59 Intake Total 1100 Output Total 600 Balance 500 Intake: Intake, IV Titration 1100 Amount Lactated Ringers 1,000 ml 1100 @ 100 mls/hr IV .Q10H KAY Rx#:[id number] Output: Urine 600 Other: Voiding Method Indwelling Catheter Indwelling Catheter Indwelling Catheter # Voids 1 # Bowel Movements 0 - Constitutional General appearance: Present: mild distress - EENT Eyes: Present: PERRLA Ears: bilateral: normal - Neck Neck: Present: normal ROM - Respiratory Respiratory: bilateral: rales - Cardiovascular Rhythm: regular - Gastrointestinal General gastrointestinal: Present: soft - Integumentary Integumentary: Present: normal - Neurologic Neurologic: Present: CNII-XII intact - Musculoskeletal Musculoskeletal: Present: generalized weakness - Psychiatric Psychiatric: Present: A&O x's 3 - Labs CBC & Chem 7: 06/18/18 08:14 06/17/18 10:55 Labs: Abnormal Lab Results - Last 24 Hours (Table) 06/17/18 Range/Units 10:55 Vitamin D 25-Hydroxy 29.3 L (30.0-100.0) ng/mL Assessment and Plan Plan: Assessment Left displaced subcapital fracture left hip Post hemiarthroplasty History of hypertension Osteoarthritis Anxiety disorder Memory impairment Plan Noted low-grade fever last night CBC chest UA ordered Hopeful discharge to [facility] tomorrow
--- NOTE | 2018-06-19 12:04 | XR ---
EXAMINATION TYPE: XR chest 1V portable DATE OF EXAM: 06/19/2018 Comparison: 06/17/2018 Clinical History: 87-year-old female post op fever Findings: Reverse right total shoulder arthroplasty partially visualized. Patient rotation alters normal cardi omediastinal contours. Heart size likely accentuated due to slightly low lung volumes and AP techniqu e. Mild carotid vascular markings. Suspected calcified lymph node at the right hilum. No consolidatio n or pleural effusion. IMPRESSION: Rotated exam with hypoventilatory changes. No definite acute process.
[2018-06-19 18:26] LABS: Amorphous Sediment,Urine Rare /hpf; Appearance,Urine Cloudy (Clear); Bacteria,Urine Rare /hpf; Bilirubin,Urine Negative (Negative); Blood,Urine Negative (Negative); Color,Urine Yellow; Glucose,Urine (UA) Negative (Negative); Hyaline Casts,Urine 5 /lpf (0-2); Ketones,Urine Negative (Negative); Leukocyte Esterase,Urine Trace (Negative); Mucus,Urine Many /hpf; Nitrite,Urine Negative (Negative); Protein,Urine 1+ (Negative); RBC,Urine 3 /hpf (0-5); Specific Gravity,Urine 1.033 (1.001-1.035); Urobilinogen,Urine <2.0 mg/dL (<2.0); WBC,Urine 4 /hpf (0-5)
[2018-06-19] MEDS: SENNOSIDES-DOCUSATE SODIUM 1 EACH TAB PO SCH (21:35)
[2018-06-19 22:04] LABS: Basophils % (A) 0 %; Eosinophils # (A) 0.1 k/uL (0-0.7); Eosinophils % (A) 1 %; HCT 31.9 % (34.0-46.0); HGB 10.2 gm/dL (11.4-16.0); Lymphocytes # (A) 0.8 k/uL (1.0-4.8); Lymphocytes % (A) 8 %; MCH 30.7 pg (25.0-35.0); MCHC 31.9 g/dL (31.0-37.0); MCV 96.1 fL (80.0-100.0); Monocytes % (A) 9 %; Neutrophils % (A) 78 %; Platelet Count 235 k/uL (150-450); RBC 3.32 m/uL (3.80-5.40); RDW 13.3 % (11.5-15.5); WBC 10.3 k/uL (3.8-10.6)
[2018-06-20] MEDS: LACTATED RINGERS 1,000 ML IV SCH ×2 (00:23→11:22)
[2018-06-20 01:13] VITALS: BP 149/79; PULSE 82; RESP 16; TEMP 98.3
[2018-06-20] MEDS: LORazepam 0.5 MG TAB PO SCH ×3 (04:16→12:56)
[2018-06-20] MEDS: HYDROmorphone 0.5 MG/0.5 ML SYRINGE IVP PRN (05:22)
[2018-06-20] MEDS: HYDROcodone/APAP 5-325MG 1 EACH TAB PO PRN (07:49)
[2018-06-20] MEDS: CITALOPRAM HYDROBROMIDE 10 MG TAB PO SCH (07:49)
[2018-06-20] MEDS: ATENOLOL 25 MG TAB PO SCH (07:49)
[2018-06-20] MEDS: LISINOPRIL 20 MG TAB PO SCH (07:49)
[2018-06-20] MEDS: ENOXAPARIN 40 MG/0.4 ML SYRINGE SQ SCH (07:50)
--- NOTE | 2018-06-20 11:53 | P.PN ---
Subjective No further fever. Urinalysis clear CBC white count improved chest x-ray negative. Patient sitting up in chair at bedside has been in room patient's been cleared for transfer to [facility] for rehab Objective - Vital Signs Vital signs: Vital Signs Temp 98.3 F 06/20/18 00:57 Pulse 82 06/20/18 08:00 Resp 16 06/20/18 08:00 BP 149/79 06/20/18 00:57 Pulse Ox 98 06/20/18 00:57 Intake & Output 06/19/18 06/20/18 06/20/18 18:59 06:59 18:59 Output Total 250 950 650 Balance -250 -950 -650 Output: Urine 250 950 650 Other: Voiding Method Indwelling Catheter Indwelling Catheter Indwelling Catheter # Voids 1 # Bowel Movements 0 - Constitutional General appearance: Present: mild distress - EENT Eyes: Present: PERRLA Ears: bilateral: normal - Neck Neck: Present: normal ROM - Respiratory Respiratory: bilateral: CTA - Cardiovascular Rhythm: regular - Gastrointestinal General gastrointestinal: Present: soft - Integumentary Integumentary: Present: normal - Neurologic Neurologic: Present: CNII-XII intact - Musculoskeletal Musculoskeletal: Present: generalized weakness - Psychiatric Psychiatric: Present: A&O x's 3 - Labs CBC & Chem 7: 06/19/18 21:31 06/17/18 10:55 Labs: Abnormal Lab Results - Last 24 Hours (Table) 06/19/18 06/19/18 Range/Units 18:20 21:31 RBC 3.32 L (3.80-5.40) m/uL Hgb 10.2 L (11.4-16.0) gm/dL Hct 31.9 L (34.0-46.0) % Neutrophils # 8.0 H (1.3-7.7) k/uL Lymphocytes # 0.8 L (1.0-4.8) k/uL Urine Appearance Cloudy H (Clear) Urine Protein 1+ H (Negative) Ur Leukocyte Esterase Trace H (Negative) Amorphous Sediment Rare H (None) /hpf Urine Bacteria Rare H (None) /hpf Hyaline Casts 5 H (0-2) /lpf Urine Mucus Many H (None) /hpf Assessment and Plan Plan: Assessment Left hip displaced subcapital fracture Post SD arthroplasty History of hypertension Osteoarthritis Anxiety disorder Memory impairment Plan Cleared for transfer to extended care facility [facility]
--- NOTE | 2018-06-20 11:59 | P.DS ---
Providers Date of admission: 06/17/18 10:36 Attending physician: Juan Carlos Luna Consults: 06/17/18 10:31 Consult Physician Stat Consulting Provider: Adonay Tomas Reason/Comments: Surgical clearance/medical management Do you want consulting provider notified?: Yes Primary care physician: Adonay Tomas [facility] Course: This is an 87-year-old female who presented on 06/17/18 after falling in the home and sustaining a ground-level fall and injury to the left hip. On exam and x- ray in the [facility] emergency department she was found to have a displaced left subcapital femoral neck fracture. The patient was admitted under the care of Dr. Luna with a consult to internal medicine. The patient is taken to surgery for hemiarthroplasty of the right hip on 06/17/18. The procedure is performed without complication or sequelae. The patient is doing well postoperatively. Vital signs are stable on postop day #3. Patient was examined bedside this morning. The patient has been inspected. The patient states she is not in pain currently. The patient has been up with physical therapy, is currently sitting up in the chair. Per physical therapy, the patient is doing well with two-person transfers and is bearing 50% of body weight on the left lower extremity. On examination of left hip, there is a dressing in place. The dressing is clean, dry, intact. There is no drainage present on the dressing or active drainage from incision. Dressing is taken down and reveals a benign-appearing surgical incision, there is no surrounding erythema, warmth, fluctuance. There are no signs of infection. Left lower extremity is neurovascular intact. Dorsalis pedis pulse palpable. There is brisk capillary refill of the toes. Patient is able to plantar flex and dorsiflex her toes without issue. The calves are soft and nontender bilaterally. The patient is discharged to inpatient rehab pending medical clearance today. Please refer to the med rec for accurate list of medications. Patient Condition at Discharge: Fair Plan - Discharge Summary Discharge Rx Participant: No New Discharge Prescriptions: New Sennosides-Docusate Sodium [Senokot-S] 2 each PO HS tab Docusate [Colace] 100 mg PO BID #60 capsule Enoxaparin [Lovenox] 40 mg SQ DAILY #28 syringe Hydrocodone/Acetaminophen [[place] 5-325] 1 tab PO Q8H PRN #21 tab PRN Reason: Pain Continue Atenolol 25 mg PO BID Lisinopril [Prinivil] 20 mg PO DAILY Citalopram Hydrobromide [CeleXA] 10 mg PO DAILY traZODone HCL 50 mg PO HS Discontinued LORazepam [Ativan] 0.5 mg PO QID Discharge Medication List Atenolol 25 mg PO BID 01/26/17 [History] Lisinopril [Prinivil] 20 mg PO DAILY 01/26/17 [History] Citalopram Hydrobromide [CeleXA] 10 mg PO DAILY 06/17/18 [History] traZODone HCL 50 mg PO HS 06/17/18 [History] Docusate [Colace] 100 mg PO BID #60 capsule 06/20/18 [Rx] Enoxaparin [Lovenox] 40 mg SQ DAILY #28 syringe 06/20/18 [Rx] Hydrocodone/Acetaminophen [[place] 5-325] 1 tab PO Q8H PRN #21 tab 06/20/18 [Rx] Sennosides-Docusate Sodium [Senokot-S] 2 each PO HS tab 06/20/18 [Rx] Follow up Appointment(s)/Referral(s): Adonay Tomas MD [Primary Care Provider] - 1-2 days Juan Carlos Luna MD [Medical Doctor] - 2 Weeks Activity/Diet/Wound Care/Special Instructions: -Weight bearing as tolerated on your left leg and a walker. Up with assistance only. -Continue posterior hip precautions. Abductor pillow in place at all times falling in bed. -Take pain medications as prescribed. Take Colace as a stool softener. Take Lovenox for 4 weeks as prescribed to prevent blood clots. - You may remove surgical dressing two days after surgery. After dressing is removed, you may shower and get incision wet. After showering, pat dry wtih towel and keep incision covered with a bandage or gauze. Do no soak incision in a bath. - Follow-up with Dr. Luna in the office in two weeks. - Call the office with any questions or concerns, Discharge Disposition: TRANSFER TO SNF/ECF
== END 2018-06-20 13:27 | DRG 470 ==
LOC: EC 09:52 → 4SSUR 10:36
PROVIDERS: ADMIT Orthopaedic Surgery; ATTEND Orthopaedic Surgery
PROC: 0SRS0J9 Replacement of Left Hip Joint, Femoral Surface with Synthetic Substitute, Cemented, Open Approach (ICD-10-PCS; principal; 2018-06-17 14:25)
DX: S72.012A Unspecified intracapsular fracture of left femur, initial encounter for closed fracture (principal); B02.9 Zoster without complications; R50.9 Fever, unspecified; M81.0 Age-related osteoporosis without current pathological fracture; M19.90 Unspecified osteoarthritis, unspecified site; I10 Essential (primary) hypertension; K59.09 Other constipation; F41.9 Anxiety disorder, unspecified; M79.7 Fibromyalgia; E78.5 Hyperlipidemia, unspecified; Q66.0 Congenital talipes equinovarus; R41.3 Other amnesia; K57.90 Diverticulosis of intestine, part unspecified, without perforation or abscess without bleeding; W01.0XXA Fall on same level from slipping, tripping and stumbling without subsequent striking against object, initial encounter; Z79.899 Other long term (current) drug therapy; Z96.653 Presence of artificial knee joint, bilateral; Z85.828 Personal history of other malignant neoplasm of skin; Z90.710 Acquired absence of both cervix and uterus; Z90.49 Acquired absence of other specified parts of digestive tract; Z96.611 Presence of right artificial shoulder joint; Z87.891 Personal history of nicotine dependence; Z88.5 Allergy status to narcotic agent; Z88.0 Allergy status to penicillin; Z82.49 Family history of ischemic heart disease and other diseases of the circulatory system
CPT/HCPCS: 71045; 73501; 73502; 80053; 81001; 81003; 82306; 85025; 85610; 85730; 86850; 86900; 86901; 88305; 88311; 96374; 96375; 99285

== ENCOUNTER 2018-09-04 13:01 | Emergency (ER) | payer MEDICARE, BC ==
[2018-09-04 13:21] VITALS: RESP 20
--- NOTE | 2018-09-04 14:57 | CT ---
EXAMINATION TYPE: CT brain abigail healy DATE OF EXAM: 09/04/2018 COMPARISON: 01/06/2018 HISTORY: Fall with posterior injury CT DLP: 1501.[address] of the brain was performed. The ventricles, basal cisterns and sulci overlying the cerebral convexities demonstrate mild enlargem ent. There is no evidence for intracranial hemorrhage or sulcal effacement. There is decreased attenuatio n about the periventricular white matter and deep white matter of both cerebral hemispheres, compatib le with chronic small vessel ischemia. No mass effects are seen. If symptoms persist consider MRI. Osseous calvarium is intact. IMPRESSION: 1. Age related atrophic and chronic small vessel ischemic change without acute intracranial process seen at this time. CT Cervical Spine: Unenhanced CT of the cervical spine was performed with bone and soft tissue window settings submitted . Coronal and sagittal reconstruction is obtained. There is normal alignment and prevertebral soft tissues. No evidence for acute cervical fracture . Scattered degenerative disc disease and spondylosis. Biapical scarring. IMPRESSION: 1. No evidence for acute fracture or subluxation of the cervical spine.
--- NOTE | 2018-09-04 15:25 | XR ---
Left hip HISTORY: Trauma and pain 2 views of the left hip correlated to prior exam 06/17/2018 Patient is status post left hip arthroplasty. There is anatomic alignment present. Bone mineralizatio n is reduced which could limit sensitivity. Degenerative disc changes are present in the visualized s pine. IMPRESSION: No fracture or dislocation evident.
--- NOTE | 2018-09-04 15:25 | ED ---
Fall HPI - General Chief Complaint: Fall Stated Complaint: Fall Time Seen by Provider: 09/04/18 13:24 Source: patient, family, EMS Mode of arrival: EMS - History of Present Illness Initial Comments: Patient is a 87-year-old female who presents via EMS from [facility] who sustained a fall from standing. Patient is currently attending rehab status post left hip JAY x 1 month ago. Patient's is here with her now. Patient's states she has past medical history of dementia and severe anxiety. Patient typically needs help to get around and even more so since her JAY. Patient's states she was refusing her morning medication and getting agitated. states that he got a call stating as she attempted to stand up on her own and fell backwards hitting her head. Upon arrival, patient was complaining of head and neck pain as well as left hip pain. Patient also has a wound on the back of her head, right aspect. Bleeding is controlled at this time. She denies being on blood thinners. Patient denies LOC. Patient has no other complaints at this time. - Related Data Home Medications Medication Instructions Recorded Confirmed Atenolol 25 mg PO BID@0900,2100 01/26/17 09/04/18 Lisinopril [Prinivil] 20 mg PO HS@209901/26/17 09/04/18 Citalopram Hydrobromide [CeleXA] 10 mg PO DAILY@0900 06/17/18 09/04/18 traZODone HCL 75 mg PO HS@2100 06/17/18 09/04/18 Acetaminophen [Tylenol Arthritis] 650 mg PO Q6H PRN 09/04/18 09/04/18 Bisacodyl [Dulcolax] 10 mg RECTAL DAILY PRN 09/04/18 09/04/18 Cyclobenzaprine [Flexeril] 5 mg PO Q8H PRN 09/04/18 09/04/18 Docusate [Colace] 100 mg PO BID@0900,209909/04/18 09/04/18 LORazepam [Ativan] 1 mg PO Q6H 09/04/18 09/04/18 Lactose-Reduced Food [Ensure Plus] 1 can PO TID@1000,1400,199909/04/18 09/04/18 Magnesium Hydroxide [Milk of 2,400 mg PO DAILY PRN 09/04/18 09/04/18 Magnesia] Melatonin 5 mg PO HS PRN 09/04/18 09/04/18 Na Phos,M-B/Na Phos,Di-Ba [Fleet 133 ml RECTAL DAILY PRN 09/04/18 09/04/18 Adult] Naproxen Sodium 220 mg PO Q12H PRN 09/04/18 09/04/18 Polyethylene Glycol 3350 [Miralax] 17 gm PO DAILY@0900 09/04/18 09/04/18 QUEtiapine [SEROquel] 25 mg PO DAILY@0900 09/04/18 09/04/18 Sennosides-Docusate Sodium 2 tab PO HS@2100 09/04/18 09/04/18 [Senokot-S] Allergies Allergy/AdvReac Type Severity Reaction Status Date / Time bee venom protein (honey bee) AdvReac Unknown Verified 09/04/18 13:17 codeine AdvReac Rash/Hives Verified 09/04/18 13:17 Penicillins AdvReac Rash/Hives Verified 09/04/18 13:17 simvastatin AdvReac Unknown Verified 09/04/18 13:17 Tetanus Vaccines and Toxoid AdvReac Unknown Verified 09/04/18 13:17 Review of Systems ROS Statement: Those systems with pertinent positive or pertinent negative responses have been documented in the HPI. ROS Other: All systems not noted in ROS Statement are negative. Past Medical History Past Medical History: Cancer, Fibromyalgia, Hyperlipidemia, Hypertension, Memory Impairment, Osteoarthritis (OA) Additional Past Medical History / Comment(s): Murmur, skin cancer with removal, arthritis multiple joints, diverticular disease, UTIs, chronic constipation, shingelles 2018. History of Any Multi-Drug Resistant Organisms: None Reported Past Surgical History: Appendectomy, Cholecystectomy, Hysterectomy, Joint Replacement, Orthopedic Surgery, Tonsillectomy Additional Past Surgical History / Comment(s): jewel. knee replacements, right shoulder replacement, bunion removed L foot, L hand tendon repair, EGD, colo noscopies, D&C, skin cancer removal R eyebrow. Past Anesthesia/Blood Transfusion Reactions: No Reported Reaction Additional Past Anesthesia/Blood Transfusion Reaction / Comment(s): Pt states she has received blood in past without reaction. Past Psychological History: Anxiety, Depression Smoking Status: Former smoker Past Alcohol Use History: None Reported Past Drug Use History: None Reported - Past Family History Mother Family Medical History: No Reported History Additional Family Medical History / Comment(s): Mother was healthy and lived to be 83 yrs old. Father Family Medical History: Myocardial Infarction (VT) Additional Family Medical History / Comment(s): Father of a VT. General Exam - General Exam Comments Initial Comments: GENERAL: Well-appearing, well-nourished and in no acute distress. Patient arrived via EMS in c-collar. HEAD: Atraumatic, normocephalic. Small hematoma on the posterior, right aspect EYES: Pupils equal round and reactive to light, extraocular movements intact, sclera anicteric, conjunctiva are normal. ENT: TMs normal, nares patent, oropharynx clear without exudates. Moist mucous membranes. NECK: Normal range of motion, supple without lymphadenopathy or JVD. Mild pain with palpation of the cervical spine paraspinals. LUNGS: Breath sounds clear to auscultation bilaterally and equal. No wheezes rales or rhonchi. HEART: Regular rate and rhythm without murmurs, rubs or gallops. ABDOMEN: Soft, nontender, normoactive bowel sounds. No guarding, no rebound. No masses appreciated. : Deferred EXTREMITIES: Normal range of motion, no pitting or edema. No clubbing or cyanos is. Pain with range of motion of the left hip and knee. There is no signs of deformity, bruising, swelling, erythema. NEUROLOGICAL: Cranial nerves II through XII grossly intact. Normal speech. PSYCH: Normal mood, normal affect. SKIN: Warm, Dry, normal turgor, no rashes or lesions noted. Course Vital Signs 09/04/18 09/04/18 13:13 16:00 Temperature 96.7 F L 97.2 F L Pulse Rate 100 88 Respiratory 20 20 Rate Blood Pressure 154/84 138/76 O2 Sat by Pulse 98 99 Oximetry Medical Decision Making - Medical Decision Making Patient is a 87-year-old female presenting from [facility] after sustaining a fall. Patient's is here with her. Patient has history of mild dementia and severe anxiety. Patient is complaining of neck pain and a headache. There is a small laceration on the back of her head, eating is controlled this time. Patient denies being on blood thinners. Patient denies LOC. On exam patient has mild tenderness to cervical spine paraspinals as well as left hip pain. Patient is status post [address] of the head and C-spine show no intracranial bleeding and no acute fractures dislocations. X-rays of the left hip show no acute fractures dislocations. There is a small 1 cm superficial laceration to the posterior head, right side. This does not require sutures or thalia. There is no bleeding at this time. Patient will be discharged back to [facility]. is in agreement with this plan. Return parameters were discus sed with the patient and the and they verbalized understanding. Case discussed with Dr. Lock. Disposition Clinical Impression: Fall, Laceration of scalp without complication Disposition: HOME SELF-CARE Condition: Stable Instructions (If sedation given, give patient instructions): Fall Prevention for Older Adults (ED) Additional Instructions: Please return to the Emergency Department if symptoms worsen or any other concerns. Follow-up with PCP as needed. Is patient prescribed a controlled substance at d/c from ED?: No Referrals: Adonay Tomas MD [Primary Care Provider] - 1-2 days
[2018-09-04 16:35] VITALS: BP 138/76; PULSE 88; TEMP 97.2
== END 2018-09-04 16:30 | disposition home or self-care (01) ==
LOC: EC 13:01
DX: S01.01XA Laceration without foreign body of scalp, initial encounter (principal); M54.2 Cervicalgia; M25.552 Pain in left hip; F03.90 Unspecified dementia, unspecified severity, without behavioral disturbance, psychotic disturbance, mood disturbance, and anxiety; F41.9 Anxiety disorder, unspecified; I10 Essential (primary) hypertension; F32.9 Major depressive disorder, single episode, unspecified; M79.7 Fibromyalgia; Z79.899 Other long term (current) drug therapy; Z88.0 Allergy status to penicillin; Z88.5 Allergy status to narcotic agent; Z88.8 Allergy status to other drugs, medicaments and biological substances; Z91.030 Bee allergy status; Z88.7 Allergy status to serum and vaccine; Z87.891 Personal history of nicotine dependence; Z96.611 Presence of right artificial shoulder joint; Z96.653 Presence of artificial knee joint, bilateral; Z85.828 Personal history of other malignant neoplasm of skin; W01.198A Fall on same level from slipping, tripping and stumbling with subsequent striking against other object, initial encounter; Y92.009 Unspecified place in unspecified non-institutional (private) residence as the place of occurrence of the external cause
CPT/HCPCS: 70450; 72125; 73502; 99285

== ENCOUNTER 2018-11-15 13:26 | Emergency (ER) | payer MEDICARE, BC ==
[2018-11-15 13:33] VITALS: RESP 18
[2018-11-15] MEDS ORDERED: MORPHINE SULFATE 4 MG/ML SYRINGE IVP STA (15:16)
[2018-11-15] MEDS ORDERED: ONDANSETRON 4 MG/2 ML VIAL IVP STA (15:16)
[2018-11-15 16:08] LABS: Basophils # (A) 0.1 k/uL (0-0.2); Basophils % (A) 1 %; Eosinophils # (A) 0.3 k/uL (0-0.7); Eosinophils % (A) 5 %; HCT 37.7 % (34.0-46.0); HGB 12.3 gm/dL (11.4-16.0); Lymphocytes # (A) 1.4 k/uL (1.0-4.8); Lymphocytes % (A) 26 %; MCH 29.4 pg (25.0-35.0); MCHC 32.6 g/dL (31.0-37.0); MCV 90.1 fL (80.0-100.0); Mean Platelet Volume 6.3; Monocytes # (A) 0.4 k/uL (0-1.0); Monocytes % (A) 8 %; Neutrophils % (A) 56 %; Platelet Count 312 k/uL (150-450); RBC 4.18 m/uL (3.80-5.40); RDW 14.5 % (11.5-15.5); WBC 5.4 k/uL (3.8-10.6)
--- NOTE | 2018-11-15 16:11 | XR ---
EXAMINATION TYPE: XR lumbar spine 2 or 3V DATE OF EXAM: 11/15/2018 CLINICAL HISTORY: Low back pain. History of multiple falls. TECHNIQUE: Frontal and lateral images of the lumbar spine are obtained. COMPARISON: 01/06/2018 FINDINGS: There is diffuse osseous demineralization seen. Grade 1 anterolisthesis of L4 on L5 is seen with 8 mm of translation. Grade 1 anterolisthesis of L5 on S1 is also seen with 7 mm of anterior tra nslation. There is mild retrolisthesis of L1 on L2 and L2 on L3. Vertebral body heights are maintaine d. Moderate degenerative disc disease of the lumbar spine with multilevel facet arthropathy and anter ior osteophytes. Moderate atherosclerosis of the abdominal aorta. No discrete aneurysmal dilatation o n x-ray. Partially visualized hip arthroplasty. IMPRESSION: 1. No acute fracture is seen in the lumbar spine. 2. Multilevel malalignment of the lumbar spine is likely on a degenerative basis with moderate multil evel degenerative disc disease. 3. Generalized osseous demineralization.
[2018-11-15 16:14] LABS: Amorphous Sediment,Urine Rare /hpf; Appearance,Urine Cloudy (Clear); Bacteria,Urine Many /hpf; Bilirubin,Urine Negative (Negative); Blood,Urine Trace (Negative); Color,Urine Light Yellow; Glucose,Urine (UA) Negative (Negative); Ketones,Urine Negative (Negative); Leukocyte Esterase,Urine Large (Negative); Nitrite,Urine Positive (Negative); Protein,Urine Trace (Negative); RBC,Urine 11 /hpf (0-5); Specific Gravity,Urine 1.009 (1.001-1.035); Squamous Epithelial Cell,Urine 13 /hpf (0-4); Urobilinogen,Urine <2.0 mg/dL (<2.0); WBC,Urine >182 /hpf (0-5)
[2018-11-15 16:40] LABS: ALT 16 U/L (9-52); AST 24 U/L (14-36); African American GFR (CKD) >90 (>60 ml/min/1.73 sqM); Albumin 3.9 g/dL (3.5-5.0); Alkaline Phosphatase 64 U/L (38-126); Anion Gap 10 mmol/L; Blood Urea Nitrogen 19 mg/dL (7-17); Calcium 9.4 mg/dL (8.4-10.2); Carbon Dioxide 26 mmol/L (22-30); Chloride 105 mmol/L (98-107); Glucose 92 mg/dL (74-99); Non-African American GFR(CKD) 83 (>60 ml/min/1.73 sqM); Potassium 4.4 mmol/L (3.5-5.1); Sodium 141 mmol/L (137-145); Total Bilirubin 0.5 mg/dL (0.2-1.3); Total Protein 6.9 g/dL (6.3-8.2)
[2018-11-15] MEDS ORDERED: cefTRIAXone IN SWFI 1,000 MG/10 ML SYRINGE IVP STA (17:02)
--- NOTE | 2018-11-15 17:02 | ED ---
General Adult HPI - General Chief complaint: Weakness Stated complaint: back pain, weakness Time Seen by Provider: 11/15/18 14:10 Source: patient, family Mode of arrival: ambulatory - History of Present Illness Initial comments: Patient is an 88-year-old female presenting to emergency Department with complaints of low back pain that started this morning. Patient's is h ere with her now. Patient was currently at [facility] recovering from a left total hip. Patient's states she appeared to be more fatigued than usual as well. Patient denies any recent falls. Patient denies fever, chills, nausea, vomiting, burning with urination. Patient has no other complaints at this time. Upon arrival to ER, vital signs are stable. - Related Data Home Medications Medication Instructions Recorded Confirmed Atenolol 25 mg PO BID@0900,209901/26/17 09/04/18 Lisinopril [Prinivil] 20 mg PO HS@209901/26/17 09/04/18 Citalopram Hydrobromide [CeleXA] 10 mg PO DAILY@0900 06/17/18 09/04/18 traZODone HCL 75 mg PO HS@209906/17/18 09/04/18 Acetaminophen [Tylenol Arthritis] 650 mg PO Q6H PRN 09/04/18 09/04/18 Bisacodyl [Dulcolax] 10 mg RECTAL DAILY PRN 09/04/18 09/04/18 Cyclobenzaprine [Flexeril] 5 mg PO Q8H PRN 09/04/18 09/04/18 Docusate [Colace] 100 mg PO BID@0900,209909/04/18 09/04/18 LORazepam [Ativan] 1 mg PO Q6H 09/04/18 09/04/18 Lactose-Reduced Food [Ensure Plus] 1 can PO TID@1000,1400,199909/04/18 09/04/18 Magnesium Hydroxide [Milk of 2,400 mg PO DAILY PRN 09/04/18 09/04/18 Magnesia] Melatonin 5 mg PO HS PRN 09/04/18 09/04/18 Na Phos,M-B/Na Phos,Di-Ba [Fleet 133 ml RECTAL DAILY PRN 09/04/18 09/04/18 Adult] Naproxen Sodium 220 mg PO Q12H PRN 09/04/18 09/04/18 Polyethylene Glycol 3350 [Miralax] 17 gm PO DAILY@0900 09/04/18 09/04/18 QUEtiapine [SEROquel] 25 mg PO DAILY@0900 09/04/18 09/04/18 Sennosides-Docusate Sodium 2 tab PO HS@2100 09/04/18 09/04/18 [Senokot-S] Previous Rx's Medication Instructions Recorded Cephalexin [Keflex] 500 mg PO BID 7 Days #14 cap 11/15/18 Allergies Allergy/AdvReac Type Severity Reaction Status Date / Time bee venom protein (honey bee) AdvReac Unknown Verified 11/15/18 13:34 codeine AdvReac Rash/Hives Verified 11/15/18 13:34 Penicillins AdvReac Rash/Hives Verified 11/15/18 13:34 simvastatin AdvReac Unknown Verified 11/15/18 13:34 Tetanus Vaccines and Toxoid AdvReac Unknown Verified 11/15/18 13:34 Review of Systems ROS Statement: Those systems with pertinent positive or pertinent negative responses have been documented in the HPI. ROS Other: All systems not noted in ROS Statement are negative. Past Medical History Past Medical History: Cancer, Fibromyalgia, Hyperlipidemia, Hypertension, Memory Impairment, Osteoarthritis (OA) Additional Past Medical History / Comment(s): Murmur, skin cancer with removal, arthritis multiple joints, diverticular disease, UTIs, chronic constipation, shingelles 2018. History of Any Multi-Drug Resistant Organisms: None Reported Past Surgical History: Appendectomy, Cholecystectomy, Hysterectomy, Joint Replacement, Orthopedic Surgery, Tonsillectomy Additional Past Surgical History / Comment(s): jewel. knee replacements, right shoulder replacement, bunion removed L foot, L hand tendon repair, EGD, colon oscopies, D&C, skin cancer removal R eyebrow. Past Anesthesia/Blood Transfusion Reactions: No Reported Reaction Additional Past Anesthesia/Blood Transfusion Reaction / Comment(s): Pt states she has received blood in past without reaction. Past Psychological History: Anxiety, Depression Smoking Status: Former smoker Past Alcohol Use History: None Reported Past Drug Use History: None Reported - Past Family History Mother Family Medical History: No Reported History Additional Family Medical History / Comment(s): Mother was healthy and lived to be 83 yrs old. Father Family Medical History: Myocardial Infarction (IA) Additional Family Medical History / Comment(s): Father of a IA. General Exam - General Exam Comments Initial Comments: GENERAL: Well-appearing, well-nourished and in no acute distress. HEAD: Atraumatic, normocephalic. EYES: Pupils equal round and reactive to light, extraocular movements intact, sclera anicteric, conjunctiva are normal. ENT: TMs normal, nares patent, oropharynx clear without exudates. Moist mucous membranes. NECK: Normal range of motion, supple without lymphadenopathy or JVD. LUNGS: Breath sounds clear to auscultation bilaterally and equal. No wheezes rales or rhonchi. HEART: Regular rate and rhythm without murmurs, rubs or gallops. ABDOMEN: Mild tenderness suprapubic area. Soft, normoactive bowel sounds. No guarding, no rebound. No masses appreciated. : Deferred EXTREMITIES: Decreased left hip range of motion secondary to recent total hip. No pitting or edema. No clubbing or cyanosis. No pain with palpation of the upper, thoracic, lower spine. NEUROLOGICAL: Cranial nerves II through XII grossly intact. Normal speech. PSYCH: Normal mood, normal affect. SKIN: Warm, Dry, normal turgor, no rashes or lesions noted. Course Vital Signs 11/15/18 11/15/18 13:29 17:25 Temperature 97.3 F L 97.8 F Pulse Rate 77 78 Respiratory 18 18 Rate Blood Pressure 129/66 137/92 O2 Sat by Pulse 98 97 Oximetry Medical Decision Making - Medical Decision Making Patient is a 88-year-old female presenting with low back pain times one day. Patient is currently at [facility] secondary to left total hip. Patient's vital signs are stable, afebrile. Patient denies any fever, chills, nausea, vomiting, trauma, falls. Exam patient has mild suprapubic tenderness. Lumbar x-ray shows multilevel degenerative lumbar spine disc disease. No acute fractures. CBC, CMP are within normal limits. UA shows trace amount of blood, nitrate positive, large amount of WBCs and WBC clumps. Patient will be given 1 g of Rocephin before DC. Patient is stable for discharge at this time. Patient will be started on Keflex for UTI. Return parameters were discussed with the patient and her and they both verbalized understanding. Case discussed with Dr. Shrestha. - Lab Data Result diagrams: 11/15/18 15:45 11/15/18 15:45 Lab Results 11/15/18 11/15/18 11/15/18 Range/Units 15:45 15:45 15:45 WBC 5.4 (3.8-10.6) k/uL RBC 4.18 (3.80-5.40) m/uL Hgb 12.3 (11.4-16.0) gm/dL Hct 37.7 (34.0-46.0) % MCV 90.1 (80.0-100.0) fL MCH 29.4 (25.0-35.0) pg MCHC 32.6 (31.0-37.0) g/dL RDW 14.5 (11.5-15.5) % Plt Count 312 (150-450) k/uL Neutrophils % 56 % Lymphocytes % 26 % Monocytes % 8 % Eosinophils % 5 % Basophils % 1 % Neutrophils # 3.0 (1.3-7.7) k/uL Lymphocytes # 1.4 (1.0-4.8) k/uL Monocytes # 0.4 (0-1.0) k/uL Eosinophils # 0.3 (0-0.7) k/uL Basophils # 0.1 (0-0.2) k/uL Sodium 141 (137-145) mmol/L Potassium 4.4 (3.5-5.1) mmol/L Chloride 105 (98-107) mmol/L Carbon Dioxide 26 (22-30) mmol/L Anion Gap 10 mmol/L BUN 19 H (7-17) mg/dL Creatinine 0.59 (0.52-1.04) mg/dL Est GFR (CKD-EPI)AfAm >90 (>60 ml/min/1.73 sqM) Est GFR (CKD-EPI)NonAf 83 (>60 ml/min/1.73 sqM) Glucose 92 (74-99) mg/dL Calcium 9.4 (8.4-10.2) mg/dL Total Bilirubin 0.5 (0.2-1.3) mg/dL AST 24 (14-36) U/L ALT 16 (9-52) U/L Alkaline Phosphatase 64 (38-126) U/L Total Protein 6.9 (6.3-8.2) g/dL Albumin 3.9 (3.5-5.0) g/dL Urine Color Light Yellow Urine Appearance Cloudy H (Clear) Urine pH 6.0 (5.0-8.0) Ur Specific R[place]y 1.009 (1.001-1.035) Urine Protein Trace H (Negative) Urine Glucose (UA) Negative (Negative) Urine Ketones Negative (Negative) Urine Blood Trace H (Negative) Urine Nitrite Positive H (Negative) Urine Bilirubin Negative (Negative) Urine Urobilinogen <2.0 (<2.0) mg/dL Ur Leukocyte Esterase Large H (Negative) Urine RBC 11 H (0-5) /hpf Urine WBC >182 H (0-5) /hpf Urine WBC Clumps Many H (None) /hpf Ur Squamous Epith Cells 13 H (0-4) /hpf Amorphous Sediment Rare H (None) /hpf Urine Bacteria Many H (None) /hpf Disposition Clinical Impression: UTI (urinary tract infection), Low back pain Disposition: HOME SELF-CARE Condition: Stable Instructions (If sedation given, give patient instructions): Urinary Tract Infection in Older Adults (ED) Additional Instructions: Please return to the Emergency Department if symptoms worsen or any other concerns. Increase fluid intake. Take antibiotic as prescribed. Prescriptions: Cephalexin [Keflex] 500 mg PO BID 7 Days #14 cap Is patient prescribed a controlled substance at d/c from ED?: No Referrals: Adonay Tomas MD [Primary Care Provider] - 1-2 days
[2018-11-15 17:26] VITALS: BP 137/92; PULSE 78; TEMP 97.8
== END 2018-11-15 17:40 | disposition home or self-care (01) ==
LOC: EC 13:26
DX: N39.0 Urinary tract infection, site not specified (principal); M54.5 Low back pain; M51.36 Other intervertebral disc degeneration, lumbar region; I10 Essential (primary) hypertension; F41.9 Anxiety disorder, unspecified; F32.9 Major depressive disorder, single episode, unspecified; Z79.899 Other long term (current) drug therapy; Z88.0 Allergy status to penicillin; Z88.5 Allergy status to narcotic agent; Z88.7 Allergy status to serum and vaccine; Z88.8 Allergy status to other drugs, medicaments and biological substances; Z91.030 Bee allergy status; Z87.891 Personal history of nicotine dependence; Z96.653 Presence of artificial knee joint, bilateral; Z96.611 Presence of right artificial shoulder joint; Z85.828 Personal history of other malignant neoplasm of skin
CPT/HCPCS: 36415; 80053; 85025; 81001; 87086; 87077; 87186; 72100; 99285; 96374; 96375 ×2; J2270; J2405; J0696

== ENCOUNTER → 2019-02-17 | Outpatient (CLI) | payer MEDICARE, BC, OTHER ==
--- NOTE | 2019-02-17 11:54 | FL ---
EXAMINATION TYPE: FL barium swallow DATE OF EXAM: 02/17/2019 CLINICAL HISTORY: Dysphagia with solids TECHNIQUE: A double contrast esophagram is performed utilizing air and thin barium. A total of 57 s econds of fluoroscopic time was utilized during procedure. 27 fluoroscopic images were saved during t he examination. COMPARISON: None FINDINGS: Exam is markedly limited as the patient could not stand and only thin barium was used in th e supine position. The patient was also only able to swallow small amounts of contrast, further limit ing the examination of the esophagus was not well distended. Tertiary contractions are seen throughou t the examination as well as a small hiatal hernia. No gross evidence of stricture. Moderate gastroes ophageal reflux is seen. IMPRESSION: Markedly limited exam as detailed above. 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
== END | disposition home or self-care (01) ==
LOC: RADUSWWP 10:00
PROVIDERS: ATTEND Family Medicine
DX: K22.8 Other specified diseases of esophagus (principal); K44.9 Diaphragmatic hernia without obstruction or gangrene; K21.9 Gastro-esophageal reflux disease without esophagitis
CPT/HCPCS: 74220